=== PATIENT | male | born 1965 | race Caucasian/White ===

== ENCOUNTER 2016-09-26 14:09 | Emergency (ER) | payer OTHER ==
[~2016-09-26] VITALS: Ht 170.2 cm; Wt 93.0 kg
[~2016-09-26 14:09] MED LIST: AMARYL1 MG PO; AMARYL4 MG PO; AMOXICILLIN 50500 MG PO; ASPIR-TRIN325 MG PO; AUGMENTIN 875-1 EACH PO; BACLOFEN 10MG T10 MG PO; BACTRIM DS TAB1 EACH PO; COREG25 MG PO; EXCEDRIN CAPLE1 EACH PO; FLEXERIL PO; FLONASE 0.05%50 MCG NASAL; GLUCOPHAGE XR500 MG PO; HYDROCHLOROTHIA25 M2 PO; IBUPROFEN 600600 M1 PO; IBUPROFEN 800800 MG PO; KEFLEX500 MG PO; LIDODERM 5%1 PATC1 TRANSDERM; LIPITOR10 MG PO; LISINOPRIL; LISINOPRIL-HCT1 EAC1; LISINOPRIL-HCT1 EACH PO; LISINOPRIL10 MG PO; LISINOPRIL20 MG PO; LOPRESSOR 50 MG50 M1 PO; METFORMIN; METFORMIN 500500 MG PO; MINIPRIN81 MG PO; NORCO 5-325 TA1 EACH PO; NORFLEX100 MG PO; ONDANSETRON HCL4 M2 PO; PERCOCET 5-3251 EACH PO; PERCOCET 7.5-51 EACH PO; PHENERGAN 25 MG25 M1 PO; PROAIR HFA8.5 GM INH; TESSALON PERLE100 MG PO; TUSSIONEX PENN473 ML PO; VALIUM5 MG PO; ZANAFLEX4 MG PO; ZOFRAN ODT4 MG PO; ZPAK PO
[2016-10-18] MEDS ORDERED: MOBIC15 MG PO (00:53)
[2016-10-18] MEDS ORDERED: NORCO 5-325 TA1 EACH PO (01:14)
[2016-11-24] MEDS ORDERED: ZOFRAN ODT4 MG PO (08:16)
== END 2016-09-26 15:34 | disposition home or self-care (01) ==
LOC: ER 14:09
DX: Z77.098 Contact with and (suspected) exposure to other hazardous, chiefly nonmedicinal, chemicals (principal); E11.9 Type 2 diabetes mellitus without complications; I10 Essential (primary) hypertension; I25.2 Old myocardial infarction; Z87.891 Personal history of nicotine dependence

== ENCOUNTER 2016-10-02 20:56 | Emergency (ER) | payer OTHER ==
[~2016-10-02] VITALS: Ht 172.7 cm; Wt 93.0 kg
--- NOTE | ~2016-10-02 | EKG ---
[place] [address] [address] [facility] [facility] [address] ELECTROCARDIOGRAM REPORT Name: MARY COLÓN [id number] Admission: 10/02/16 Attend Phys: Discharge: 10/02/16 Date of : 61 Report #: [id number] THIS REPORT FOR: //name// [facility] ED Test Date: 2016-10-02 Test Time: 20:57:02 Pat Name: MARY COLÓN Department: Room: Gender: Promotions Coordinator: SILVERIO : 1965 Requested By: Eugenio Weber Order Number: [id number] MD: Moe Amador Measurements Intervals [place] Rate: 87 P: 9 NH: 119 QRS: 46 QRSD: 97 T: 84 QT: 354 QTc: 426 Interpretive Statements Sinus rhythm Borderline short NH interval Minimal ST depression, lateral leads Compared to ECG 09/03/2016 15:30:14 No significant changes Electronically Signed On 10-03-2016 8:18:55 PHOTOVOLTAIC SOLAR CELL DESIGNER by Moe Amador [email or web address] <ELECTRONICALLY SIGNED> By: Moe Amador MD, [facility] 10/03/16817 56 56 Moe Amador MD, FACC /EPI
[2016-10-02] MEDS ORDERED: NAPROSYN500 MG PO (22:48)
[2016-10-02] MEDS ORDERED: ROBAXIN500 MG PO (22:48)
[2016-10-02] MEDS ORDERED: TRAMADOL 50 MG50 MG PO (22:48)
[2016-10-18] MEDS ORDERED: MOBIC15 MG PO (00:53)
[2016-10-18] MEDS ORDERED: NORCO 5-325 TA1 EACH PO (01:14)
[2016-11-24] MEDS ORDERED: ZOFRAN ODT4 MG PO (08:16)
== END 2016-10-02 23:13 | disposition home or self-care (01) ==
LOC: ER 20:56
DX: G44.209 Tension-type headache, unspecified, not intractable (principal); M26.602 Left temporomandibular joint disorder, unspecified; E11.9 Type 2 diabetes mellitus without complications; I25.2 Old myocardial infarction; I10 Essential (primary) hypertension; E78.5 Hyperlipidemia, unspecified; Z95.5 Presence of coronary angioplasty implant and graft; Z87.891 Personal history of nicotine dependence

== ENCOUNTER 2016-12-22 13:28 | Emergency (ER) | payer OTHER ==
[~2016-12-22] VITALS: Ht 170.2 cm; Wt 93.0 kg
[~2016-12-22 13:28] MED LIST changes: +MOBIC15 MG PO; +NAPROSYN500 MG PO; +ROBAXIN500 MG PO; +TRAMADOL 50 MG50 MG PO
[2016-12-22] MEDS ORDERED: FLEXERIL PO (15:06)
[2016-12-22] MEDS ORDERED: LIDODERM 5%1 PATC1 TRANSDERM (15:06)
[2016-12-22] MEDS ORDERED: MEDROLDOSEPACK PO (15:06)
== END 2016-12-22 15:15 ==
LOC: ER 13:28
DX: S16.1XXA Strain of muscle, fascia and tendon at neck level, initial encounter (principal); M43.6 Torticollis; E11.9 Type 2 diabetes mellitus without complications; I10 Essential (primary) hypertension; Z95.5 Presence of coronary angioplasty implant and graft; E78.5 Hyperlipidemia, unspecified; I25.2 Old myocardial infarction; Z95.1 Presence of aortocoronary bypass graft; F17.210 Nicotine dependence, cigarettes, uncomplicated; F10.99 Alcohol use, unspecified with unspecified alcohol-induced disorder; X58.XXXA Exposure to other specified factors, initial encounter; Y93.89 Activity, other specified; Y92.89 Other specified places as the place of occurrence of the external cause; Y99.8 Other external cause status

== ENCOUNTER 2017-01-02 05:05 | Emergency (ER) | payer OTHER ==
[~2017-01-02] VITALS: Ht 170.2 cm; Wt 93.0 kg
[~2017-01-02 05:05] MED LIST changes: +MEDROLDOSEPACK PO
[2017-01-02] MEDS ORDERED: KEFLEX500 MG PO (05:29)
[2017-01-02] MEDS ORDERED: NORCO 5-325 TA1 EACH PO (05:29)
[2017-01-02] MEDS ORDERED: BACTRIM DS TAB1 EACH PO (05:29)
== END 2017-01-02 05:46 | disposition home or self-care (01) ==
LOC: ER 05:05
DX: L03.012 Cellulitis of left finger (principal); E11.9 Type 2 diabetes mellitus without complications; I10 Essential (primary) hypertension; I25.2 Old myocardial infarction; Z95.1 Presence of aortocoronary bypass graft; E78.5 Hyperlipidemia, unspecified; Z95.5 Presence of coronary angioplasty implant and graft; F17.210 Nicotine dependence, cigarettes, uncomplicated; F10.99 Alcohol use, unspecified with unspecified alcohol-induced disorder

== ENCOUNTER 2017-01-05 05:27 | Inpatient (IN) | payer OTHER ==
[~2017-01-05] VITALS: Ht 170.2 cm; Wt 88.9 kg
--- NOTE | ~2017-01-05 | 2DMMODE ---
[facility] [address] [place] [place] [address] 2 D/M-MODE ECHOCARDIOGRAM Name: ELDONMARYJORGE MOORE Room #: 307-P ADM IN M.R.#: [id number] Admission: 01/05/17 Attend Phys: Geremias Freitas Discharge: Date of : 61 Date of Service: 01/06/17 1227 Report #: [id number] THIS REPORT FOR: //name// APPROVED REPORT Study performed: 01/06/2017 11:44:14 EXAM: Comprehensive 2D, Doppler, and color-flow Echocardiogram Patient Location: Bedside Room #: 307 Blood Pressure: 129/93 mmHg HR: 84 bpm Rhythm: NSR Other Information Study Quality: Adequate Indications Dyspnea Hx: MT, CABG, Stents, DM, HTN, HLP 2D Dimensions RVDd: 35.92 mm LVEF(%): 49.56 (>50%) IVSd: 11.08 (7-11mm) LVOT Diam: 23.66 (18-24mm) LVDd: 41.93 mm PWd: 9.06 (7-11mm) Ascending Ao: 36.66 (22-36mm) LVDs: 31.52 (25-40mm) Aortic Root: 33.51 mm Mason's LVEF: 49.56 % Volumes Left Atrial Volume (Systole) Single Plane 4CH: 40.79 mL Single Plane 2CH: 40.37 mL LA ESV Index: 21.00 mL/m2 Aortic Valve AoV Peak Alf.: 1.16 m/s AO Peak Gr.: 5.41 mmHg LVOT Max P.68 mmHg LVOT Max V: 0.82 m/s Mitral Valve E/A Ratio: 0.7 [facility] [address] [place] [address] 2 D/M-MODE ECHOCARDIOGRAM Name: MARY COLÓN TERESA Room #: 307-P ADM IN [facility].#: [id number] Admission: 01/05/17 Attend Phys: Geremias Freitas Discharge: Date of : 61 Date of Service: 01/06/17 1227 Report #: [id number] MV Decel. Time: 205.34 ms MV E Max Alf.: 0.56 m/s MV A Alf.: 0.76 m/s MV PHT: 59.55 ms Pulmonary Valve PV Peak Alf.: 0.74 m/s PV Peak Gr.: 2.19 mmHg Pulmonary Vein P Vein S: 54.1 m/s P Vein D: 41.5 m/s Tricuspid Valve RAP Estimate: 5.00 mmHg Left Ventricle The left ventricle is normal size. There is normal LV segmental wall motion. There is normal left ventricular wall thickness. The left ventricular systolic function is normal. LVEF is 55%. Grade I - abnormal relaxation pattern. Right Ventricle The right ventricle is normal size. The right ventricular systolic function is normal. Atria The left atrium size is normal. The right atrium size is normal. Aortic Valve Aortic valve is mildly calcified. No aortic regurgitation is present. There is no aortic valvular stenosis. Mitral Valve The mitral valve is normal in structure. Trace mitral regurgitation. Tricuspid Valve The tricuspid valve is normal in structure. There is no tricuspid valve regurgitation noted. Pulmonic Valve Pulmonic valve is not well visualized. Great Vessels The aortic root is normal in size. The ascending aorta is normal in [facility] [address] [place] [address] 2 D/M-MODE ECHOCARDIOGRAM Name: ELDONMARY Room #: 307-P ADM IN M.R.#: [id number] Admission: 01/05/17 Attend Phys: Geremias Freitas Discharge: Date of : 61 Date of Service: 01/06/17 1227 Report #: [id number] size. IVC is normal in size and collapses >50% with inspiration. Pericardium There is no pericardial effusion. <Conclusion> The left ventricle is normal size. LVEF is 55%. Aortic valve is mildly calcified. No aortic regurgitation is present. There is no aortic valvular stenosis. The mitral valve is normal in structure. Trace mitral regurgitation. The tricuspid valve is normal in structure. Pulmonic valve is not well visualized. <ELECTRONICALLY SIGNED> By: Zacarias Prince MD 01/06/17 122 26 26 Zacarias Prince MD /INF
--- NOTE | ~2017-01-05 | HC ---
[facility] [place] [address] CONSULTATION Name: MARY COLÓN Room #: 307-P [facility] IN M.R.#: [id number] Admission: 01/05/17 Attend Phys: Felipe Hutson MD Discharge: Date of : 61 Report #: [id number] THIS REPORT FOR: //name// CC: JOELLE physician/PCP Felipe Hutson DATE OF SERVICE: 01/05/2017 INDICATION: Dyspnea. HISTORY OF PRESENT ILLNESS: This is a 51-year-old gentleman with a history of CABG, presenting with dyspnea. He reports developing dyspnea when he took the garbage out this morning. He denies any associated symptoms of angina, lightheadedness or congestion. He follows with Dr. Monsivais at [facility]. His last ischemic evaluation in August 2016 was unremarkable, although the target heart rate was not achieved. There is no history of tobacco use, fever, chills or cough. PAST MEDICAL HISTORY: [facility]-vessel CABG at [facility] in 2010. Recently with stents in 2014 at [facility], followed by Dr. Monsivais. History of hypertension, diabetes mellitus and hypercholesterolemia. ALLERGIES: None. CURRENT MEDICATIONS: Includes lisinopril 10 mg daily, Glucophage, glimepiride 8 mg daily, aspirin once a day, Coreg 25 mg twice a day, hydrochlorothiazide 25 mg daily, atorvastatin 10 mg daily. SOCIAL HISTORY: Denies tobacco use. FAMILY HISTORY: Negative for premature CAD. REVIEW OF SYSTEMS: A full 10-point review of systems performed. Only the pertinent positives and negatives are described in the HPI. PHYSICAL EXAMINATION: VITAL SIGNS: Blood pressure is 120/70, heart rate is 75 beats per minute. GENERAL APPEARANCE: A well-developed, well-nourished male in no acute respiratory distress. HEAD AND EYES: Normocephalic. Sclerae anicteric. ENT: Oral mucosa moist. NECK: Supple. LUNGS: Clear to auscultation. CARDIAC: Regular rate and rhythm, S1, S2 positive. ABDOMEN: Soft, nontender. [facility] [address] [place] [address] CONSULTATION Name: MARY COLÓN TERESA Room #: [facility] IN M.R.#: [id number] Admission: 01/05/17 Attend Phys: Felipe Hutson MD Discharge: Date of : 61 Report #: [id number] EXTREMITIES: No major joint deformities. No edema. ECG reveals sinus rhythm, nonspecific T-wave abnormalities. LABORATORY VALUES: White count is 5.3, hemoglobin 13.7. Sodium is 132, creatinine is 1.2, troponin is negative. ASSESSMENT AND PLAN: 1. Dyspnea, occurred with taking the garbage out, appears to be stable at this time. The BNP level is within normal limits. I would like to obtain an echo to assess his LV function. He will continue with serial troponin levels. 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 2. Coronary artery disease/coronary artery bypass graft, continue with aspirin. 3. Hypertension, continue with medications. 4. Hypercholesterolemia, continue with statin. 5. Diabetes mellitus, poorly controlled Thank you for allowing me to participate in the care of your patient. <ELECTRONICALLY SIGNED> By: Joel Rowan MD 01/06/17 0807 1436 0002 Joel Rowan MD /nt
--- NOTE | ~2017-01-05 | EKG ---
[place] [address] [place] [address] ELECTROCARDIOGRAM REPORT Name: MARY COLÓN [facility] [id number] Admission: 01/05/17 Attend Phys: Discharge: Date of : 61 Report #: [id number] THIS REPORT FOR: //name// [facility] ED Test Date: 2017-01-05 Test Time: 05:49:43 Pat Name: MARY COLÓN Department: Room: Gender: Customer Strategy Manager: EDILIA : 1965 Requested By: Ana María Deshpande Order Number: [id number] MD: Moe Amador Measurements Intervals [place] Rate: 66 P: 9 CO: 132 QRS: 16 QRSD: 97 T: 122 QT: 391 QTc: 410 Interpretive Statements Sinus rhythm Abnormal T, consider ischemia, lateral leads Compared to ECG 11/24/2016 05:23:23 T-wave abnormality now present Ventricular premature complex(es) no longer present Electronically Signed On 01-05-2017 8:36:41 CDT by Moe Amador [email or web address] <ELECTRONICALLY SIGNED> By: Moe Amador MD, [facility] 01/05/17 0836 0549 0549 Moe Amador MD, [facility] /EPI
[2017-01-05 05:33] VITALS: BP 111/68
[2017-01-05 06:12] LABS: ABSOLUTE NEUTROPHILS 2.4 thou/uL (1.4-8.2); BASOPHILS 2.3 % (0.0-2.0); EOSINOPHILS 4.1 % (0.0-3.0); HEMATOCRIT 38.8 % (42.0-52.0); HEMOGLOBIN 13.7 gm/dL (14.0-18.0); LYMPHOCYTES 38.6 % (24.0-44.0); MCH 28.9 pg (26.0-34.0); MCHC 35.4 g/dL (28.0-37.0); MCV 81.6 fL (80.0-100.0); MONOCYTES 9.1 % (1.0-8.0); PLATELET COUNT 273 thou/uL (150-400); POLYS 45.9 % (36.0-66.0); RBC 4.75 mil/uL (4.50-6.00); RDW 13.7 % (10.5-14.5); WBC 5.3 thou/uL (4.0-11.0)
[2017-01-05 06:14] LABS: MANUAL DIFF NO
[2017-01-05 06:37] LABS: ANION GAP 11 mmol/L (7-16); BUN 21 mg/dL (7-18); CALCIUM 8.4 mg/dL (8.5-10.1); CHLORIDE 98 mmol/L (98-107); CO2 23 mmol/L (21-32); CREATININE 1.2 mg/dL (0.7-1.3); NT-PRO BRAIN NAT PEPTIDE 19 pg/mL (<300); POTASSIUM 4.3 mmol/L (3.5-5.1); SODIUM 132 mmol/L (136-145); TROPONIN-I < 0.04 ng/mL (<0.04-0.07)
[2017-01-05 06:41] LABS: GLUCOSE 524 mg/dL (74-106)
[2017-01-05 11:35] VITALS: BP 122/79
[2017-01-05 11:41] VITALS: BP 122/79
[2017-01-05 11:42] VITALS: BP 109/75; BP 112/72
[2017-01-05 17:00] VITALS: BP 125/77
[2017-01-05 20:00] VITALS: BP 139/80
[2017-01-06 01:07] LABS: GLYCOHEMOGLOBIN (HGB A1C) 11.4 % (4.8-5.6)
[2017-01-06 04:00] VITALS: BP 127/85
[2017-01-06 05:05] LABS: ANION GAP 12 mmol/L (7-16); BUN 17 mg/dL (7-18); CALCIUM 8.8 mg/dL (8.5-10.1); CHLORIDE 103 mmol/L (98-107); CO2 24 mmol/L (21-32); CREATININE 0.9 mg/dL (0.7-1.3); GLUCOSE 172 mg/dL (74-106); MAGNESIUM 1.9 mg/dL (1.8-2.4); POTASSIUM 3.7 mmol/L (3.5-5.1); SODIUM 139 mmol/L (136-145)
[2017-01-06 07:55] LABS: TROPONIN-I < 0.04 ng/mL (<0.04-0.07)
[2017-01-06 08:22] VITALS: BP 129/93
[2017-01-06] MEDS ORDERED: GLIPIZIDE 5 MG T5 MG PO (11:45)
[2017-01-06 12:32] VITALS: BP 134/89
[2017-01-06 14:24] VITALS: BP 134/89
[2017-01-06 15:52] VITALS: BP 137/87
[2017-01-06 16:56] VITALS: BP 134/89
== END 2017-01-06 17:39 | disposition home or self-care (01) | DRG 313 ==
LOC: ER 05:27 → 3N 08:33 → EROBS 08:33 → 3N 09:38
PROVIDERS: Emergency Medicine; Nurse Practitioner
DX: R07.9 Chest pain, unspecified (principal); E87.1 Hypo-osmolality and hyponatremia; R06.02 Shortness of breath; E78.5 Hyperlipidemia, unspecified; E78.00 Pure hypercholesterolemia, unspecified; I11.9 Hypertensive heart disease without heart failure; R42 Dizziness and giddiness; E11.65 Type 2 diabetes mellitus with hyperglycemia; I25.10 Atherosclerotic heart disease of native coronary artery without angina pectoris; G89.29 Other chronic pain; M79.642 Pain in left hand; Z79.899 Other long term (current) drug therapy; I25.2 Old myocardial infarction; Z95.1 Presence of aortocoronary bypass graft; Z95.5 Presence of coronary angioplasty implant and graft; Z87.891 Personal history of nicotine dependence; Z79.82 Long term (current) use of aspirin
CPT/HCPCS: 10096

== ENCOUNTER 2017-01-14 20:37 | Emergency (ER) | payer OTHER ==
[~2017-01-14] VITALS: Ht 170.2 cm; Wt 93.0 kg
[~2017-01-14 20:37] MED LIST changes: +GLIPIZIDE 5 MG T5 MG PO
[2017-01-14 20:56] LABS: ABSOLUTE NEUTROPHILS 3.6 thou/uL (1.4-8.2); BASOPHILS 1.3 % (0.0-2.0); EOSINOPHILS 3.3 % (0.0-3.0); HEMATOCRIT 38.5 % (42.0-52.0); HEMOGLOBIN 13.8 gm/dL (14.0-18.0); LYMPHOCYTES 39.1 % (24.0-44.0); MCH 29.3 pg (26.0-34.0); MCHC 35.8 g/dL (28.0-37.0); MCV 81.8 fL (80.0-100.0); MONOCYTES 8.3 % (1.0-8.0); PLATELET COUNT 287 thou/uL (150-400); RDW 13.7 % (10.5-14.5); WBC 7.4 thou/uL (4.0-11.0)
[2017-01-14 21:00] LABS: MANUAL DIFF NO
[2017-01-14] MEDS ORDERED: PHENERGAN 25 MG25 M1 PO (21:00)
[2017-01-14 21:10] LABS: ANION GAP 14 mmol/L (7-16); BUN 20 mg/dL (7-18); CALCIUM 8.5 mg/dL (8.5-10.1); CHLORIDE 100 mmol/L (98-107); CO2 20 mmol/L (21-32); CREATININE 1.3 mg/dL (0.7-1.3); GLUCOSE 416 mg/dL (74-106); POTASSIUM 4.3 mmol/L (3.5-5.1); SODIUM 134 mmol/L (136-145)
== END 2017-01-14 21:46 | disposition home or self-care (01) ==
LOC: ER 20:37
PROVIDERS: Emergency Medicine
DX: G44.009 Cluster headache syndrome, unspecified, not intractable (principal); E11.9 Type 2 diabetes mellitus without complications; I25.2 Old myocardial infarction; I10 Essential (primary) hypertension; Z95.1 Presence of aortocoronary bypass graft; Z95.5 Presence of coronary angioplasty implant and graft; Z87.891 Personal history of nicotine dependence

== ENCOUNTER 2017-03-07 05:18 | Emergency (ER) | payer OTHER ==
[~2017-03-07] VITALS: Ht 170.2 cm; Wt 93.0 kg
[~2017-03-07 05:18] MED LIST changes: +CARAFATE 1 GM TA1 G1 PO; +PROTONIX 20 MG20 M1 PO
[2017-03-07] MEDS ORDERED: FLEXERIL PO (06:19)
[2017-03-07] MEDS ORDERED: NORCO 5-325 TA1 EACH PO (06:19)
[2017-03-07] MEDS ORDERED: MOBIC15 MG PO (06:19)
== END 2017-03-07 06:20 | disposition home or self-care (01) ==
LOC: ER 05:18
DX: M54.5 Low back pain (principal); M53.3 Sacrococcygeal disorders, not elsewhere classified; E11.9 Type 2 diabetes mellitus without complications; I25.2 Old myocardial infarction; I10 Essential (primary) hypertension; E78.5 Hyperlipidemia, unspecified; Z95.5 Presence of coronary angioplasty implant and graft; Z87.891 Personal history of nicotine dependence

== ENCOUNTER 2017-03-28 05:19 | Emergency (ER) | payer OTHER ==
[~2017-03-28] VITALS: Ht 172.7 cm; Wt 93.0 kg
[2017-03-28] MEDS ORDERED: ZOFRAN ODT4 MG PO (05:48)
== END 2017-03-28 06:58 | disposition home or self-care (01) ==
LOC: ER 05:19
DX: R51 Headache (principal); E11.9 Type 2 diabetes mellitus without complications; I25.2 Old myocardial infarction; I10 Essential (primary) hypertension; E78.00 Pure hypercholesterolemia, unspecified; F10.99 Alcohol use, unspecified with unspecified alcohol-induced disorder; Z95.5 Presence of coronary angioplasty implant and graft; Z87.891 Personal history of nicotine dependence

== ENCOUNTER 2017-04-11 23:26 | Emergency (ER) | payer OTHER ==
[~2017-04-11] VITALS: Ht 175.3 cm; Wt 93.0 kg
[2017-04-12] MEDS ORDERED: VALIUM2 MG PO (00:12)
[2017-04-12] MEDS ORDERED: MOBIC15 MG PO (00:12)
== END 2017-04-12 01:08 | disposition home or self-care (01) ==
LOC: ER 23:26
DX: S16.1XXA Strain of muscle, fascia and tendon at neck level, initial encounter (principal); E11.9 Type 2 diabetes mellitus without complications; I25.2 Old myocardial infarction; I10 Essential (primary) hypertension; E78.5 Hyperlipidemia, unspecified; Z95.5 Presence of coronary angioplasty implant and graft; Z87.891 Personal history of nicotine dependence; W07.XXXA Fall from chair, initial encounter; Y93.89 Activity, other specified; Y92.89 Other specified places as the place of occurrence of the external cause; Y99.8 Other external cause status

== ENCOUNTER 2017-04-27 09:18 | Emergency (ER) | payer OTHER ==
[~2017-04-27] VITALS: Ht 170.2 cm; Wt 93.0 kg
[~2017-04-27 09:18] MED LIST changes: +VALIUM2 MG PO
[2017-04-27] MEDS ORDERED: MOBIC15 MG PO (09:47)
[2017-04-27] MEDS ORDERED: LIDODERM 5%1 PATC1 TRANSDERM (09:48)
== END 2017-04-27 09:48 | disposition home or self-care (01) ==
LOC: ER 09:18
DX: S76.312A Strain of muscle, fascia and tendon of the posterior muscle group at thigh level, left thigh, initial encounter (principal); E11.9 Type 2 diabetes mellitus without complications; I10 Essential (primary) hypertension; I25.2 Old myocardial infarction; E78.00 Pure hypercholesterolemia, unspecified; F10.99 Alcohol use, unspecified with unspecified alcohol-induced disorder; Z95.1 Presence of aortocoronary bypass graft; Z87.891 Personal history of nicotine dependence; W18.49XA Other slipping, tripping and stumbling without falling, initial encounter; Y93.89 Activity, other specified; Y92.89 Other specified places as the place of occurrence of the external cause; Y99.8 Other external cause status

== ENCOUNTER 2017-06-29 19:03 | Inpatient (IN) | payer OTHER ==
[~2017-06-29] VITALS: Ht 170.2 cm; Wt 93.0 kg
--- NOTE | ~2017-06-29 | EKG ---
[address] [address] ELECTROCARDIOGRAM REPORT Name: MARY COLÓN Room #: 423-1 ADM IN M.R.#: [id number] Admission: 06/29/17 Attend Phys: Fermín Canales DO Discharge: Date of : 61 Report #: [id number] THIS REPORT FOR: //name// [facility] ED Test Date: 2017-06-29 Test Time: 19::17 Pat Name: MARY COLÓN Department: Room: [facility] Gender: M Junior High Math Teacher: MZOOSteph : 1965 Requested By: Ankush Rodríguez Order Number: [id number] MD: Jose Aquino Measurements Intervals [place] Rate: 75 P: 34 [place]: 129 QRS: 50 QRSD: 95 T: 82 QT: 374 QTc: 418 Interpretive Statements Sinus rhythm Minimal ST depression, lateral leads Minimal ST elevation, inferior leads Compared to ECG 03/29/2017 22:08:24 Early repolarization no longer present ST (T wave) deviation still present Electronically Signed On 06-30-2017 8:23:10 CDT by Jose Aquino [email or web address] <ELECTRONICALLY SIGNED> By: Jose Aquino MD 06/30/17 0823 09 09 Jose Aquino MD /EPI
[2017-06-29 19:09] VITALS: BP 134/68
[2017-06-29 19:37] LABS: ABSOLUTE NEUTROPHILS 3.8 thou/uL (1.4-8.2); BASOPHILS 2.7 % (0.0-2.0); EOSINOPHILS 3.6 % (0.0-3.0); HEMOGLOBIN 13.6 gm/dL (14.0-18.0); LYMPHOCYTES 35.5 % (24.0-44.0); MCHC 35.7 g/dL (28.0-37.0); MCV 81.1 fL (80.0-100.0); MONOCYTES 10.3 % (1.0-8.0); PLATELET COUNT 284 thou/uL (150-400); POLYS 47.9 % (36.0-66.0); RBC 4.69 mil/uL (4.50-6.00); RDW 13.8 % (10.5-14.5); WBC 7.9 thou/uL (4.0-11.0)
[2017-06-29 19:42] LABS: MANUAL DIFF NO
[2017-06-29 19:48] LABS: ANION GAP 13 mmol/L (7-16); BUN 22 mg/dL (7-18); CALCIUM 9.1 mg/dL (8.5-10.1); CHLORIDE 95 mmol/L (98-107); CO2 21 mmol/L (21-32); CREATININE 1.4 mg/dL (0.7-1.3); POTASSIUM 3.4 mmol/L (3.5-5.1); SODIUM 129 mmol/L (136-145)
[2017-06-29 19:53] LABS: GLUCOSE 548 mg/dL (74-106)
[2017-06-29 19:54] LABS: TROPONIN-I < 0.04 ng/mL (<0.04-0.07)
[2017-06-29 20:19] LABS: ABG SAMPLE TYPE ARTERIAL; BE(vivo) 1.2 mmol/L (-2 to +3); HCO3 21.4 mmol/L (22.0-26.0); LACTATE 3.38 mmol/L (0.5-2.0); O2(CT) 19.1 mL/dL (15.0-23.0); O2Hb 97.8 % (92.0-98.0); PO2 113.4 mmHg (80.0-100.0); pH 7.576 (7.360-7.450); sO2 98.7 % (92.0-98.0); tCO2 22.2 mmol/L (24.0-30.0)
[2017-06-29 20:20] LABS: PCO2 23.6 mmHg (35.0-45.0); STICK SITE L.RADIAL
[2017-06-29 22:15] VITALS: BP 126/70
[2017-06-29 23:12] VITALS: BP 130/74
[2017-06-30 03:16] VITALS: BP 138/93
[2017-06-30 04:02] LABS: CALCIUM 8.5 mg/dL (8.5-10.1); CREATININE 0.9 mg/dL (0.7-1.3); MAGNESIUM 1.8 mg/dL (1.8-2.4); POTASSIUM 3.7 mmol/L (3.5-5.1)
[2017-06-30 08:00] VITALS: BP 125/84
[2017-06-30 08:26] LABS: URINE BILIRUBIN NEGATIVE (Negative); URINE BLOOD NEGATIVE (Negative); URINE COLOR YELLOW; URINE GLUCOSE-RANDOM* 3+ (Negative); URINE KETONES NEGATIVE (Negative); URINE LEUKOCYTES-REFLEX NEGATIVE (Negative); URINE PROTEIN (DIPSTICK) NEGATIVE (Negative); URINE SPECIFIC GRAVITY <= 1.005 (1.003-1.035); URINE UROBILINOGEN 0.2 E.U./dl (0.2-1.0)
[2017-06-30] MEDS ORDERED: AZITHROMYCIN 2250 MG PO (11:10)
[2017-06-30 11:31] VITALS: BP 125/84
[2017-06-30 13:12] LABS: GLYCOHEMOGLOBIN (HGB A1C) 13.3 % (4.8-5.6)
== END 2017-06-30 13:47 | disposition home or self-care (01) | DRG 205 ==
LOC: ER 19:03 → 4E 21:33 → EROBS 21:33 → 4E 23:14
PROVIDERS: Emergency Medicine; Nurse Practitioner Acute Care
DX: M94.0 Chondrocostal junction syndrome [Tietze] (principal); N17.0 Acute kidney failure with tubular necrosis; E87.1 Hypo-osmolality and hyponatremia; E87.3 Alkalosis; R07.89 Other chest pain; Z82.49 Family history of ischemic heart disease and other diseases of the circulatory system; I25.10 Atherosclerotic heart disease of native coronary artery without angina pectoris; E87.6 Hypokalemia; I10 Essential (primary) hypertension; E78.5 Hyperlipidemia, unspecified; E11.65 Type 2 diabetes mellitus with hyperglycemia; I25.2 Old myocardial infarction; Z95.1 Presence of aortocoronary bypass graft; Z87.891 Personal history of nicotine dependence; Z79.82 Long term (current) use of aspirin; Z79.899 Other long term (current) drug therapy; Z79.84 Long term (current) use of oral hypoglycemic drugs; Z95.5 Presence of coronary angioplasty implant and graft
CPT/HCPCS: 10183

== ENCOUNTER 2017-09-22 12:59 | Emergency (ER) | payer OTHER ==
[~2017-09-22] VITALS: Ht 170.2 cm; Wt 90.7 kg
[~2017-09-22 12:59] MED LIST changes: +AZITHROMYCIN 2250 MG PO
[2017-09-22] MEDS ORDERED: BUTALB-APAP-CA1 EACH PO (14:42)
[2017-09-22 14:53] VITALS: BP 112/80
[2018-01-12] MEDS ORDERED: NORFLEX100 MG PO (19:32)
[2018-01-12] MEDS ORDERED: IBUPROFEN 800800 M1 PO (19:32)
== END 2017-09-22 14:56 | disposition home or self-care (01) ==
LOC: ER 12:59
DX: G43.909 Migraine, unspecified, not intractable, without status migrainosus (principal); R05 Cough; E11.9 Type 2 diabetes mellitus without complications; I10 Essential (primary) hypertension; E78.5 Hyperlipidemia, unspecified; Z87.891 Personal history of nicotine dependence

== ENCOUNTER 2017-10-09 09:57 | Emergency (ER) | payer OTHER ==
[~2017-10-09] VITALS: Ht 172.7 cm; Wt 93.0 kg
--- NOTE | ~2017-10-09 | EKG ---
[address] [address] ELECTROCARDIOGRAM REPORT Name: MARY COLÓN Room #: DEP [facility]rie#: [id number] Admission: 10/09/17 Attend Phys: Discharge: 10/09/17 Date of : 61 Report #: [id number] THIS REPORT FOR: //name// [facility] ED Test Date: 2017-10-09 Test Time: 10:11:03 Pat Name: MARY COLÓN Department: Room: Gender: M Train Control Electronic Technician: TSTORCK : 1965 Requested By: Ankush Rodríguez Order Number: [id number] MD: Jose Aquino Measurements Intervals [place] Rate: 70 P: 16 ME: 130 QRS: 33 QRSD: 92 T: 106 QT: 388 QTc: 419 Interpretive Statements Sinus rhythm Repol abnrm suggests ischemia, anterolateral Borderline ST elevation, inferior leads Baseline wander in lead(s) V2 Compared to ECG 06/29/2017 19:10:17 Early repolarization now present Possible ischemia now present ST (T wave) deviation still present Electronically Signed On 10-10-2017 8:11:04 ION IMPLANT MACHINE OPERATOR by Jose Aquino [email or web address] <ELECTRONICALLY SIGNED> By: Jose Aquino MD 10/10/17 0811 1011 1011 Jose Aquino MD /EPI
[~2017-10-09 09:57] MED LIST changes: +BUTALB-APAP-CA1 EACH PO
[2017-10-09 11:10] LABS: ABSOLUTE NEUTROPHILS 3.8 thou/uL (1.4-8.2); BASOPHILS 1.3 % (0.0-2.0); EOSINOPHILS 4.2 % (0.0-3.0); HEMATOCRIT 39.9 % (42.0-52.0); HEMOGLOBIN 14.2 gm/dL (14.0-18.0); LYMPHOCYTES 30.7 % (24.0-44.0); MCH 29.3 pg (26.0-34.0); MCHC 35.5 g/dL (28.0-37.0); MCV 82.4 fL (80.0-100.0); MONOCYTES 8.5 % (1.0-8.0); PLATELET COUNT 287 thou/uL (150-400); POLYS 55.3 % (36.0-66.0); RBC 4.84 mil/uL (4.50-6.00); RDW 13.7 % (10.5-14.5); WBC 6.9 thou/uL (4.0-11.0)
[2017-10-09 11:19] LABS: ANION GAP 10 mmol/L (7-16); BUN 19 mg/dL (7-18); CALCIUM 9.4 mg/dL (8.5-10.1); CHLORIDE 97 mmol/L (98-107); CO2 27 mmol/L (21-32); CREATININE 1.1 mg/dL (0.7-1.3); GLUCOSE 375 mg/dL (74-106); POTASSIUM 4.1 mmol/L (3.5-5.1); SODIUM 134 mmol/L (136-145)
[2017-10-09 11:28] LABS: TROPONIN-I < 0.04 ng/mL (<0.06)
[2017-10-09] MEDS ORDERED: PROTONIX40 M1 PO (12:28)
[2017-10-09 13:10] VITALS: BP 125/73
[2018-01-12] MEDS ORDERED: NORFLEX100 MG PO (19:32)
[2018-01-12] MEDS ORDERED: IBUPROFEN 800800 M1 PO (19:32)
== END 2017-10-09 13:11 | disposition home or self-care (01) ==
LOC: ER 09:57
PROVIDERS: Emergency Medicine
DX: R07.89 Other chest pain (principal); I10 Essential (primary) hypertension; E11.9 Type 2 diabetes mellitus without complications; E78.5 Hyperlipidemia, unspecified; Z87.891 Personal history of nicotine dependence

== ENCOUNTER 2017-11-10 22:54 | Emergency (ER) | payer OTHER ==
[~2017-11-10] VITALS: Ht 170.2 cm; Wt 93.0 kg
[~2017-11-10 22:54] MED LIST changes: +PROTONIX40 M1 PO
[2017-11-11] MEDS ORDERED: PROMETHAZINE/C118 ML PO (01:23)
[2017-11-11] MEDS ORDERED: OSELB75 PO (01:23)
[2017-11-11] MEDS ORDERED: ZOFRAN ODT4 MG PO (01:23)
[2017-11-11 02:00] VITALS: BP 141/73
[2018-01-12] MEDS ORDERED: NORFLEX100 MG PO (19:32)
[2018-01-12] MEDS ORDERED: IBUPROFEN 800800 M1 PO (19:32)
== END 2017-11-11 02:02 | disposition home or self-care (01) ==
LOC: ER 22:54
DX: J11.1 Influenza due to unidentified influenza virus with other respiratory manifestations (principal); E11.9 Type 2 diabetes mellitus without complications; I25.2 Old myocardial infarction; I10 Essential (primary) hypertension; E78.5 Hyperlipidemia, unspecified; Z95.1 Presence of aortocoronary bypass graft; Z87.891 Personal history of nicotine dependence

== ENCOUNTER 2017-11-15 21:30 | Emergency (ER) | payer OTHER ==
[~2017-11-15] VITALS: Ht 170.2 cm; Wt 93.0 kg
[~2017-11-15 21:30] MED LIST changes: +OSELB75 PO; +PROMETHAZINE/C118 ML PO
[2017-11-15 22:25] LABS: ABSOLUTE NEUTROPHILS 2.6 thou/uL (1.4-8.2); BASOPHILS 1.3 % (0.0-2.0); HEMATOCRIT 40.8 % (42.0-52.0); HEMOGLOBIN 14.5 gm/dL (14.0-18.0); LYMPHOCYTES 45.1 % (24.0-44.0); MCH 28.7 pg (26.0-34.0); MCHC 35.5 g/dL (28.0-37.0); MCV 80.9 fL (80.0-100.0); MONOCYTES 10.1 % (1.0-8.0); PLATELET COUNT 235 thou/uL (150-400); POLYS 39.5 % (36.0-66.0); RBC 5.04 mil/uL (4.50-6.00); RDW 13.6 % (10.5-14.5); WBC 6.6 thou/uL (4.0-11.0)
[2017-11-15 22:38] LABS: CALCIUM 9.1 mg/dL (8.5-10.1); CREATININE 1.2 mg/dL (0.7-1.3); POTASSIUM 4.1 mmol/L (3.5-5.1)
[2017-11-16 00:16] VITALS: BP 149/88
[2018-01-12] MEDS ORDERED: NORFLEX100 MG PO (19:32)
[2018-01-12] MEDS ORDERED: IBUPROFEN 800800 M1 PO (19:32)
== END 2017-11-16 00:16 | disposition home or self-care (01) ==
LOC: ER 21:30
PROVIDERS: Physician Assistant
DX: J11.1 Influenza due to unidentified influenza virus with other respiratory manifestations (principal); B34.9 Viral infection, unspecified; E11.65 Type 2 diabetes mellitus with hyperglycemia; I10 Essential (primary) hypertension; E78.5 Hyperlipidemia, unspecified; I25.2 Old myocardial infarction; Z95.1 Presence of aortocoronary bypass graft; Z87.891 Personal history of nicotine dependence

== ENCOUNTER 2017-11-29 23:18 | Emergency (ER) | payer OTHER ==
[~2017-11-29] VITALS: Ht 170.2 cm; Wt 93.0 kg
[2017-11-30] MEDS ORDERED: NAPROSYN500 MG PO (01:06)
[2017-11-30] MEDS ORDERED: BUTALB-APAP-CA1 EACH PO (01:06)
[2017-11-30 01:39] VITALS: BP 138/85
[2018-01-12] MEDS ORDERED: NORFLEX100 MG PO (19:32)
[2018-01-12] MEDS ORDERED: IBUPROFEN 800800 M1 PO (19:32)
== END 2017-11-30 01:41 | disposition home or self-care (01) ==
LOC: ER 23:18
DX: R51 Headache (principal); E11.9 Type 2 diabetes mellitus without complications; I10 Essential (primary) hypertension; Z95.5 Presence of coronary angioplasty implant and graft; Z87.891 Personal history of nicotine dependence

== ENCOUNTER 2017-12-07 14:51 | Emergency (ER) | payer OTHER ==
[~2017-12-07] VITALS: Ht 170.2 cm; Wt 93.0 kg
--- NOTE | ~2017-12-07 | EKG ---
[place] [address] [place] [address] ELECTROCARDIOGRAM REPORT Name: MARY COLÓN [facility] [id number] Admission: 12/07/17 Attend Phys: Discharge: Date of : 61 Report #: [id number] THIS REPORT FOR: //name// [facility] ED Test Date: 2017-12-07 Test Time: 15:15:59 Pat Name: MARY COLÓN Department: Room: Gender: M Play Reader: JUSTYNA : 1965 Requested By: Virgilio Woodall Order Number: [id number] MD: Moe Amador Measurements Intervals [place] Rate: 78 P: 2 RI: 127 QRS: 47 QRSD: 94 T: 91 QT: 368 QTc: 420 Interpretive Statements Sinus rhythm Borderline ST elevation, inferior leads Compared to ECG 10/09/2017 10:11:03 No significant change was found Electronically Signed On 12-07-2017 17:39:51 CDT by Moe Amador [email or web address] <ELECTRONICALLY SIGNED> By: Moe Amador MD, [facility] 12/07/17 1739 1515 1515 Moe Amador MD, FACC /EPI
[2017-12-07 15:18] LABS: URINE BILIRUBIN NEGATIVE (Negative); URINE BLOOD NEGATIVE (Negative); URINE CLARITY CLEAR; URINE COLOR YELLOW; URINE GLUCOSE-RANDOM* 3+ (Negative); URINE KETONES NEGATIVE (Negative); URINE LEUKOCYTES NEGATIVE (Negative); URINE NITRITE NEGATIVE (Negative); URINE PROTEIN (DIPSTICK) NEGATIVE (Negative); URINE SPECIFIC GRAVITY <= 1.005 (1.005-1.035); URINE UROBILINOGEN 0.2 E.U./dl (0.2-1.0)
[2017-12-07 15:31] LABS: ABSOLUTE NEUTROPHILS 3.7 thou/uL (1.4-8.2); BASOPHILS 1.3 % (0.0-2.0); EOSINOPHILS 3.5 % (0.0-3.0); HEMATOCRIT 39.8 % (42.0-52.0); HEMOGLOBIN 14.1 gm/dL (14.0-18.0); MCHC 35.5 g/dL (28.0-37.0); MCV 81.5 fL (80.0-100.0); MONOCYTES 10.4 % (1.0-8.0); PLATELET COUNT 295 thou/uL (150-400); POLYS 54.8 % (36.0-66.0); RBC 4.88 mil/uL (4.50-6.00); RDW 13.3 % (10.5-14.5); WBC 6.7 thou/uL (4.0-11.0)
[2017-12-07 15:43] LABS: ANION GAP 12 mmol/L (7-16); BUN 19 mg/dL (7-18); CALCIUM 9.1 mg/dL (8.5-10.1); CHLORIDE 93 mmol/L (98-107); CO2 23 mmol/L (21-32); CREATININE 1.2 mg/dL (0.7-1.3); POTASSIUM 4.4 mmol/L (3.5-5.1); SODIUM 128 mmol/L (136-145)
[2017-12-07 15:48] LABS: GLUCOSE 691 mg/dL (74-106)
[2017-12-07 15:49] LABS: ALBUMIN 3.3 g/dL (3.4-5.0); SGOT 18 U/L (15-37); SGPT 27 U/L (30-65); TOTAL BILIRUBIN 0.4 mg/dL (<0.1-1.0); TROPONIN-I < 0.04 ng/mL (<0.06)
[2017-12-07 16:32] LABS: HCO3 22.3 mmol/L (22.0-26.0); PCO2 VENOUS 40.8 mmHg (41.0-51.0); PO2 VENOUS 49.5 mmHg (35.0-45.0)
== END 2017-12-07 20:25 | disposition home or self-care (01) ==
LOC: ER 14:51
PROVIDERS: Physician Assistant
DX: E11.65 Type 2 diabetes mellitus with hyperglycemia (principal); E86.0 Dehydration; I10 Essential (primary) hypertension; E78.5 Hyperlipidemia, unspecified; Z91.11 Patient's noncompliance with dietary regimen; Z87.891 Personal history of nicotine dependence

== ENCOUNTER 2018-01-03 07:49 | Emergency (ER) | payer OTHER ==
[~2018-01-03] VITALS: Ht 172.7 cm; Wt 93.0 kg
[2018-01-03] MEDS ORDERED: MOBIC15 MG PO (09:27)
== END 2018-01-03 10:13 | disposition home or self-care (01) ==
LOC: ER 07:49
DX: M79.604 Pain in right leg (principal); E11.9 Type 2 diabetes mellitus without complications; I10 Essential (primary) hypertension; E78.5 Hyperlipidemia, unspecified; I25.2 Old myocardial infarction; Z95.1 Presence of aortocoronary bypass graft; Z87.891 Personal history of nicotine dependence

== ENCOUNTER 2018-01-05 20:22 | Emergency (ER) | payer OTHER ==
[~2018-01-05] VITALS: Ht 170.2 cm; Wt 93.0 kg
--- NOTE | ~2018-01-05 | EKG ---
[place] [address] [facility] [place] [address] ELECTROCARDIOGRAM REPORT Name: MARY COLÓN [facility] [id number] Admission: 01/05/18 Attend Phys: Discharge: 01/05/18 Date of : 61 Report #: [id number] THIS REPORT FOR: //name// [facility] ED Test Date: 2018-01-05 Test Time: 20:41:42 Pat Name: MARY COLÓN Department: Room: Gender: M Chainstitch Felled Seam Operator: JUSTYNA : 1965 Requested By: Denzel Zavaleta Order Number: [id number] MD: Moe Amador Measurements Intervals [place] Rate: 80 P: 39 MD: 125 QRS: 46 QRSD: 98 T: 106 QT: 334 QTc: 386 Interpretive Statements Sinus rhythm Borderline repolarization abnormality Compared to ECG 12/07/2017 15:15:59 ST (T wave) deviation still present Electronically Signed On 01-07-2018 16:31:04 CDT by Moe Amador [email or web address] <ELECTRONICALLY SIGNED> By: Moe Amador MD, [facility] 01/07/18 1631 40 40 Moe Amador MD, FACC /EPI
[2018-01-05 21:08] LABS: ABSOLUTE NEUTROPHILS 3.7 thou/uL (1.4-8.2); BASOPHILS 1.4 % (0.0-2.0); EOSINOPHILS 3.5 % (0.0-3.0); HEMATOCRIT 39.3 % (42.0-52.0); HEMOGLOBIN 13.9 gm/dL (14.0-18.0); LYMPHOCYTES 39.3 % (24.0-44.0); MCHC 35.4 g/dL (28.0-37.0); MONOCYTES 8.4 % (1.0-8.0); PLATELET COUNT 286 thou/uL (150-400); POLYS 47.4 % (36.0-66.0); RBC 4.79 mil/uL (4.50-6.00); RDW 13.5 % (10.5-14.5); WBC 7.9 thou/uL (4.0-11.0)
[2018-01-05 21:10] LABS: URINE BILIRUBIN NEGATIVE (Negative); URINE BLOOD NEGATIVE (Negative); URINE CLARITY CLEAR; URINE COLOR YELLOW; URINE GLUCOSE-RANDOM* 3+ (Negative); URINE KETONES TRACE (Negative); URINE LEUKOCYTES-REFLEX NEGATIVE (Negative); URINE NITRITE-REFLEX NEGATIVE (Negative); URINE PROTEIN (DIPSTICK) NEGATIVE (Negative); URINE SPECIFIC GRAVITY <= 1.005 (1.005-1.035); URINE UROBILINOGEN 0.2 E.U./dl (0.2-1.0)
[2018-01-05 21:13] LABS: BE(vivo) 0 mmol/L (-2 to +3); HCO3 22.3 mmol/L (22.0-26.0); PCO2 VENOUS 30.4 mmHg (41.0-51.0); PO2 VENOUS 94.9 mmHg (35.0-45.0)
[2018-01-05 21:17] LABS: CALCIUM 9.4 mg/dL (8.5-10.1); CREATININE 1.1 mg/dL (0.7-1.3); POTASSIUM 3.5 mmol/L (3.5-5.1)
== END 2018-01-05 23:57 | disposition home or self-care (01) ==
LOC: ER 20:22
PROVIDERS: Physician Assistant
DX: E11.65 Type 2 diabetes mellitus with hyperglycemia (principal); I10 Essential (primary) hypertension; E78.5 Hyperlipidemia, unspecified; Z87.891 Personal history of nicotine dependence

== ENCOUNTER 2018-01-16 16:57 | Emergency (ER) | payer OTHER ==
[~2018-01-16] VITALS: Ht 170.2 cm; Wt 93.0 kg
[~2018-01-16 16:57] MED LIST changes: +IBUPROFEN 800800 M1 PO
== END 2018-01-16 18:53 | disposition home or self-care (01) ==
LOC: ER 16:57
DX: S39.012A Strain of muscle, fascia and tendon of lower back, initial encounter (principal); V89.2XXA Person injured in unspecified motor-vehicle accident, traffic, initial encounter; Y93.89 Activity, other specified; Y92.89 Other specified places as the place of occurrence of the external cause; Y99.8 Other external cause status; E11.9 Type 2 diabetes mellitus without complications; I10 Essential (primary) hypertension; E78.5 Hyperlipidemia, unspecified; Z95.1 Presence of aortocoronary bypass graft; Z87.891 Personal history of nicotine dependence

== ENCOUNTER 2018-02-22 11:49 | Emergency (ER) | payer OTHER ==
[~2018-02-22] VITALS: Ht 172.7 cm; Wt 83.9 kg
[2018-02-22] MEDS ORDERED: JANUVIA25 MG PO (12:08)
[2018-02-22] MEDS ORDERED: NORFLEX100 MG PO (13:06)
[2018-02-22] MEDS ORDERED: NAPROSYN500 MG PO (13:06)
== END 2018-02-22 13:24 | disposition home or self-care (01) ==
LOC: ER 11:49
DX: S76.011A Strain of muscle, fascia and tendon of right hip, initial encounter (principal); E11.9 Type 2 diabetes mellitus without complications; I10 Essential (primary) hypertension; E78.5 Hyperlipidemia, unspecified; Z87.891 Personal history of nicotine dependence; W10.8XXA Fall (on) (from) other stairs and steps, initial encounter; Y93.89 Activity, other specified; Y92.89 Other specified places as the place of occurrence of the external cause; Y99.8 Other external cause status

== ENCOUNTER 2018-03-08 05:23 | Inpatient (IN) | payer OTHER ==
[~2018-03-08] VITALS: Ht 170.2 cm; Wt 84.9 kg
--- NOTE | ~2018-03-08 | EKG ---
[place] [address] [facility] [place] [address] ELECTROCARDIOGRAM REPORT Name: MARY COLÓN Room #: 170-5 ADM IN M.R.#: [id number] Admission: 03/08/18 Attend Phys: Fred Garcia MD, Discharge: Date of : 61 Report #: [id number] THIS REPORT FOR: //name// [facility] ED Test Date: 2018-03-08 Test Time: 05:26:17 Pat Name: MARY COLÓN Department: Room: Gender: M Director Medical Economics: : 1965 Requested By: Ankush Rodríguez Order Number: [id number] MD: Moe Amador Measurements Intervals [place] Rate: 80 P: 12 IL: 120 QRS: 38 QRSD: 95 T: 82 QT: 367 QTc: 424 Interpretive Statements Sinus rhythm No significant abnormality Compared to ECG 01/05/2018 20:41:42 No significant changes Electronically Signed On 03-08-2018 8:10:33 CDT by Moe Amador [email or web address] <ELECTRONICALLY SIGNED> By: Moe Amador MD, [facility] 03/08/18 0810 0526 5 Moe Amador MD, FACC /EPI
--- NOTE | ~2018-03-08 | D ---
[facility] [place] [address] DISCHARGE SUMMARY Name: MARY COLÓN Room #: 208-P [facility] IN M.R.#: [id number] Admission: 03/08/18 Attend Phys: Fred Garcia MD, Discharge: 03/09/18 Date of : 61 Report #: [id number] THIS REPORT FOR: //name// CC: FAM unknown [facility] COURSE: The patient is a 52-year-old male who presents with some subtle ST elevation and chest pain, would wax and wane, few hours prior to his admission yesterday. I took him emergently to the catheterization lab after heparin bolus and had a subtotal hazy mid RCA lesion. This was successfully dilated and stented with a 2.75 x 14 Resolute drug-eluting stent, postdilated to 3.0 mm. He had a left main distal narrowing filling a relatively small circ OM that both had 60% to 70% narrowings, but these were not the culprit and relatively small in distribution. There was a SOLANO to an LAD, which is intact and the LAD was well preserved, extending around the apex. There was an SVG is filling a more distal OM. The right renal artery had a 40% ostial narrowing and the ejection fraction was near normal. I expect this to be normal after restoring flow in the RCA. The troponin is equivocal at 0.06. No EKG changes. He is stable. No chest pain. His groin has no bruit and no hematoma. DISCHARGE DIAGNOSES: 1. ST-elevation myocardial infarction with urgent intervention to right coronary artery, which was non-bypassed vessel, as stated above; left internal mammary artery to left anterior descending intact and saphenous vein graft to obtuse marginal intact. 2. Hypertension. 3. Hypercholesterolemia. 4. Diabetes. 5. Recovered alcohol and tobacco user. PLAN: No lifting for 48 hours and lying in tub, Jacuzzi or koenig for a week. Dual antiplatelet therapy for 1 year. We will continue home meds, except for the addition of the prasugrel 10 mg. Atorvastatin 10, linagliptin 5, glyburide 8 mg, insulin, carvedilol 25 b.i.d., aspirin and the prasugrel 10 mg a day. Followup is scheduled in 3 months. By: 0830 1251 Fred Garcia MD, FACC /nt
--- NOTE | ~2018-03-08 | EKG ---
[address] [address] ELECTROCARDIOGRAM REPORT Name: MARY COLÓNNE Room #: 208-P ADM IN M.R.#: [id number] Admission: 03/08/18 Attend Phys: Fred Garcia MD, Discharge: Date of : 61 Report #: [id number] THIS REPORT FOR: //name// [facility] Test Date: 2018-03-08 Test Time: 09:51:49 Pat Name: MARY COLÓN Department: Room: 208 P Gender: M Bindery Machine Feeder Offbearer: MAITE : 1965 Requested By: Fred Garcia Order Number: [id number] MD: Measurements Intervals [place] Rate: 69 P: 29 [place]: 142 QRS: 29 QRSD: 100 T: 86 QT: 394 QTc: 422 Interpretive Statements Sinus rhythm ST elev, probable normal early repol pattern Baseline wander in lead(s) V6 Compared to ECG 03/08/2018 06:28:25 No significant changes [email or web address] By: 0951 0951 Epiphany EpiphanyMD /EPI
--- NOTE | ~2018-03-08 | EKG ---
[place] [address] [facility] [place] [address] ELECTROCARDIOGRAM REPORT Name: MARY COLÓN Room #: 170-5 ADM IN M.R.#: [id number] Admission: 03/08/18 Attend Phys: Fred Garcia MD, Discharge: Date of : 61 Report #: [id number] THIS REPORT FOR: //name// [facility] ED Test Date: 2018-03-08 Test Time: 06:28:25 Pat Name: MARY COLÓN Department: Room: Gender: M Cardiovascular Invasive Specialist: ileana : 1965 Requested By: Mario Martínez Order Number: [id number] MD: Moe Amador Measurements Intervals [place] Rate: 75 P: 0 ND: 128 QRS: 29 QRSD: 95 T: 90 QT: 376 QTc: 420 Interpretive Statements Sinus rhythm Minimal ST depression, lateral leads Minimal ST elevation, inferior leads Compared to ECG 01/05/2018 20:41:42 ST (T wave) deviation now present Electronically Signed On 03-08-2018 8:10:56 CDT by Moe Amador [email or web address] <ELECTRONICALLY SIGNED> By: Moe Amador MD, [facility] 03/08/18 0810 7 7 Moe Amador MD, [facility] /EPI
--- NOTE | ~2018-03-08 | EKG ---
[place] [address] [facility] [facility] [place] [address] ELECTROCARDIOGRAM REPORT Name: MARY COLÓN Room #: 208-P ADM IN M.R.#: [id number] Admission: 03/08/18 Attend Phys: Fred Garcia MD, Discharge: Date of : 61 Report #: [id number] THIS REPORT FOR: //name// [facility] Test Date: 2018-03-08 Test Time: 09:51:49 Pat Name: MARY COLÓN Department: Room: 208 P Gender: M Electronics Maintenance Technician: MAITE : 1965 Requested By: Fred Garcia Order Number: [id number] MD: Moe Amador Measurements Intervals [place] Rate: 69 P: 29 CA: 142 QRS: 29 QRSD: 100 T: 86 QT: 394 QTc: 422 Interpretive Statements Sinus rhythm Minimal ST elevation, inferior leads Baseline wander in lead(s) V6 Compared to ECG 03/08/2018 06:28:25 No significant changes Electronically Signed On 03-09-2018 7:25:27 CDT by Moe Amador [email or web address] <ELECTRONICALLY SIGNED> By: Moe Amador MD, [facility] 03/09/18 0725 0951 0951 Moe Amador MD, [facility] /EPI
--- NOTE | ~2018-03-08 | EKG ---
[address] [place] [address] ELECTROCARDIOGRAM REPORT Name: MARY COLÓN Room #: 208-[facility] IN M.R.#: [id number] Admission: 03/08/18 Attend Phys: Fred Garcia MD, Discharge: 03/09/18 Date of : 61 Report #: [id number] THIS REPORT FOR: //name// [facility] Test Date: 2018-03-09 Test Time: 06:48:57 Pat Name: MARY COLÓN Department: Room: 208 P Gender: M Ski Patrol Officer: GR : 1965 Requested By: Fred Garcia Order Number: [id number] MD: Moe Amador Measurements Intervals [place] Rate: 73 P: 28 [place]: 136 QRS: 35 QRSD: 93 T: 80 QT: 386 QTc: 426 Interpretive Statements Sinus rhythm Normal tracing Compared to ECG 03/08/2018 06:28:25 No significant changes Electronically Signed On 03-12-2018 9:03:03 CDT by Moe Amador [email or web address] <ELECTRONICALLY SIGNED> By: Moe Amador MD, [facility] 03/12/18 0903 Moe Amador MD, [facility] /EPI
--- NOTE | ~2018-03-08 | CATHLAB ---
[facility] [address] [place] [address] INVASIVE PROCEDURE REPORT Name: ELDONMARY JESUSNE Room #: 208-P ADM IN M.R.#: [id number] Admission: 03/08/18 Attend Phys: Fred Garcia, Discharge: Date of : 61 Date of Service: 03/08/18 1732 Report #: [id number] THIS REPORT FOR: //name// APPROVED REPORT Study performed: 03/08/2018 07:17:56 Patient Details Patient Status: In-Patient Room #: The patient is a 52 year-old male Event Personnel Fred Garcia Biosecurity Officer, Silvia Black RTRebecca Monitor, Markell Tovar Penny, Wes trauma therapist Performed Art Access - R femoral artery* 93751 Initial Mod Sed Same Phys/QHP Gr5y 253531 86456 Mod Sed Same Phys/QHP Ea 833858 Left Heart Cath Coronaries, Bypass Grafts 7596307 LHCCORCABG Aortogram Abdominal Peripheral Angio 916562 Renal Bilateral Peripheral Angiography 0835736 CVRENALBIL PREM Revasc AMI Total/Sub Single RCA C9606 AMIREVSING Hemostasis w/ Mynx Indication STEMI Procedure Narrative The patient was brought electivelyemergently to the Cardiac Catheterization Laboratory and was prepped and draped in a sterile manner. The Right Groin^ was infiltrated with 1% Lidocaine subcutaneous anesthesia. A PINNACLE 6FR Sheath #[id number] sheath was inserted into the RFA^. Coronary angiography was performed using coronary diagnostic catheters. The right coronary system was accessed and visualized with a JR 4 catheter. The left coronary system was accessed and visualized with a JL 4 catheter. The left ventricle was accessed and visualized with a Pigtail catheter. Left ventriculogram was performed in DAVID projection. An aortogram of the abdominal aorta was performed. Closure device was deployed with a 6 Fr Mynx. The patient tolerated the procedure well and there were no complications associated with the procedure. There was no hematoma. Intraoperative Conscious Sedation Sedation start time: 07:56 Case end Time: 08:43 Fentanyl 50 mcg Versed 1.[address] [address] INVASIVE PROCEDURE REPORT Name: MARY COLÓN Room #: 208-P [facility] IN ..#: [id number] Admission: 03/08/18 Attend Phys: Fred Garcia, Discharge: Date of : 61 Date of Service: 03/08/18 1732 Report #: [id number] Fluoro Time: 12.31 minutes Dose: DAP 09188.50 cGycm2 1765 mGy Contrast Type and Amount: Omnipaque 220 ml Hemodynamics The aortic pressure is 128/64 mmHg with a mean of 94 mmHg. The left ventricular pressure is 112/11 mmHg with a mean of mmHg. The left ventricular end diastolic pressure is 22 mmHg. PCI Technique Lesion Percutaneous coronary intervention was performed on the mid right coronary artery. A LAUNCHER 6FR JR 4 #[id number] Guide Catheter was used to engage the ostium. A Luge Wire .014 x 182CM #[id number] Interventional Guidewire was used to cross the lesion. BALLOON DILATION A Balloon catheter Sprinter OTW 2.5 x 15 #[id number] was inserted and inflated up to 10.00atm for 23seconds. STENT DEPLOYMENT A drug-eluting stent RESOLUTE OTW 2.75 X 14 #[id number] was inserted and inflated up to 16.00atm for 32seconds. Conclusion #1 successful PTCA stent of the mid RCA subtotal lesion (infarct vessel) placement of a 2.75 x 14 resolute drug-eluting stent yielding 0% residual #2 left main distal narrowing of 60-70% giving rise to an occluded LAD and a circumflex. #3 distal left main tapered narrowing of 60-70% giving rise to circumflex and occluded LAD #4 the first OM is patent with a 60-70% mid vessel but small vessel lesion noted the distal circumflex occludes #5 the SOLANO to LAD is intact with mild diffuse disease in the LAD it extends around the apex #6 SVG mild to moderately diseased filling a small distal OM system #7 normal left ventricular size with subtle inferior wall leg EF 50-55% #8 left renal artery widely patent #9 right renal artery with 40% ostial narrowing Regulations and plan continue aggressive risk factor modification [address] [address] INVASIVE PROCEDURE REPORT Name: MARY COLÓN TERESA Room #: 208-P [facility] IN M.R.#: [id number] Admission: 03/08/18 Attend Phys: Fred Garcia, Discharge: Date of : 61 Date of Service: 03/08/181731 Report #: [id number] dual antiplatelet therapy. Minx closure device was utilized. Patient transfer to [facility] in stable condition <ELECTRONICALLY SIGNED> By: Fred Garcia MD, FACC 03/08/181731 31 31 Fred Garcia MD, FACC /INF
--- NOTE | ~2018-03-08 | H ---
[facility] [place] [address] HISTORY AND PHYSICAL Name: MARY COLÓN Room #: 208-P ADM IN M.R.#: [id number] Admission: 03/08/18 Attend Phys: Fred Garcia MD, Discharge: Date of : 61 Report #: [id number] THIS REPORT FOR: //name// CC: FAM unknown Fred Garcia DATE OF SERVICE: 03/08/2018 PRIMARY CARE PHYSICIAN: HISTORY OF PRESENT ILLNESS: The patient is a 52-year-old male who comes in today this morning to the Emergency Room, drove himself in with some recurrent chest pressure, heaviness. He has a somewhat complicated history of cardiac with prior bypass 5 or 6 years ago elsewhere and may be a stent placed since then. Last cath was 2 or 3 years ago. None of this was at [facility]. It looks like he had a nuclear stress test here 2 years ago that was negative. He has not seen Cardiology in a year or two he states. He has been compliant with his medications he states, lisinopril 10, metformin 1000 b.i.d., Amaryl 8, aspirin, carvedilol 25 b.i.d., HCTZ 25, atorvastatin 10, and Januvia. He perhaps has been slightly more fatigued he states, but certainly not had any unstable anginal symptoms until this event this morning. He does present with some subtle ST elevation in the inferior leads, subtle depression in 1 and aVL. Still low grade discomfort despite some pain medication and heparin. PAST MEDICAL HISTORY: Positive for coronary artery disease with bypass 2-vessel stent since that time, hypertension, hypercholesterolemia, 10 years of diabetic. No other surgeries. ALLERGIES: No known drug allergies. SOCIAL HISTORY: He is , 2 sons. He works for the [employer]. Recovering alcoholic. No alcohol in 20 years and quit tobacco 12 years ago. FAMILY HISTORY: Mother had a valve replacement. REVIEW OF SYSTEMS: Essentially negative except for some nocturia, frequency. PHYSICAL EXAMINATION: VITAL SIGNS: Blood pressure . HEENT: Eyes reveal xanthelasmas. Pharynx is clear. NECK: Shows preserved upstrokes without JVD or bruits. LUNGS: Clear. CARDIOVASCULAR: Regular rate and rhythm, S1, S2. ABDOMEN: Soft. No HSM or abdominal bruit. EXTREMITIES: Reveal no edema. His pulses were intact. NEUROLOGIC: Nonfocal. [facility] [address] [place] [address] HISTORY AND PHYSICAL Name: MARY COLÓN Room #: 208-P [facility] IN .R.#: [id number] Admission: 03/08/18 Attend Phys: Fred Garcia MD, Discharge: Date of : 61 Report #: [id number] SKIN: Warm and dry without xanthoma or ulcer. MUSCULOSKELETAL: No gross joint deformity. ASSESSMENT: 1. A stuttering acute inferior wall myocardial infarction, subtle ST elevation consistent with ST-elevation myocardial infarction. 2. Coronary artery disease with history of 2-vessel bypass and stent after. 3. Hypertension. 4. Diabetes type 2. 5. Hypercholesterolemia. 6. Recovered alcohol and tobacco user. RECOMMENDATIONS AND PLAN: We will proceed emergently to the Catheterization Lab. Aspirin, statin, heparin bolus have been given and we will proceed urgently for intervention as indicated. Risks, benefits and alternatives were discussed with the patient. Thank you for asking me to assist in the care of this patient. By: 0848 0909 Fred Garcia MD, FACC /nt
[~2018-03-08 05:23] MED LIST changes: +JANUVIA25 MG PO
[2018-03-08 05:26] VITALS: BP 108/71
[2018-03-08 05:55] LABS: ABSOLUTE NEUTROPHILS 3.3 thou/uL (1.4-8.2); BASOPHILS 1.4 % (0.0-2.0); EOSINOPHILS 5.3 % (0.0-3.0); HEMATOCRIT 38.4 % (42.0-52.0); HEMOGLOBIN 13.6 gm/dL (14.0-18.0); LYMPHOCYTES 39.9 % (24.0-44.0); MCH 29.4 pg (26.0-34.0); MCHC 35.4 g/dL (28.0-37.0); MCV 83.2 fL (80.0-100.0); MONOCYTES 9.2 % (1.0-8.0); PLATELET COUNT 270 thou/uL (150-400); POLYS 44.2 % (36.0-66.0); RBC 4.61 mil/uL (4.50-6.00); RDW 13.8 % (10.5-14.5); WBC 7.4 thou/uL (4.0-11.0)
[2018-03-08 06:01] LABS: ANION GAP 14 mmol/L (7-16); BUN 17 mg/dL (7-18); CALCIUM 8.6 mg/dL (8.5-10.1); CHLORIDE 102 mmol/L (98-107); CO2 20 mmol/L (21-32); CREATININE 1.2 mg/dL (0.7-1.3); GLUCOSE 390 mg/dL (74-106); POTASSIUM 3.7 mmol/L (3.5-5.1); SODIUM 136 mmol/L (136-145)
[2018-03-08 06:10] LABS: TROPONIN-I <0.06 ng/mL (<0.06)
[2018-03-08 07:30] VITALS: BP 121/72
[2018-03-08 07:48] LABS: APTT 24.5 Seconds (24.5-32.8)
[2018-03-08 09:11] VITALS: BP 113/68
[2018-03-08 15:27] VITALS: BP 110/73
[2018-03-08 19:05] VITALS: BP 125/72
[2018-03-09 00:24] VITALS: BP 132/86
[2018-03-09 04:46] VITALS: BP 120/88
[2018-03-09 05:31] LABS: ABSOLUTE NEUTROPHILS 4.4 thou/uL (1.4-8.2); BASOPHILS 0.8 % (0.0-2.0); EOSINOPHILS 4.4 % (0.0-3.0); HEMATOCRIT 38.3 % (42.0-52.0); HEMOGLOBIN 13.5 gm/dL (14.0-18.0); LYMPHOCYTES 26.7 % (24.0-44.0); MCH 28.7 pg (26.0-34.0); MCHC 35.3 g/dL (28.0-37.0); MCV 81.2 fL (80.0-100.0); PLATELET COUNT 250 thou/uL (150-400); POLYS 58.1 % (36.0-66.0); RBC 4.71 mil/uL (4.50-6.00); RDW 14.1 % (10.5-14.5); WBC 7.5 thou/uL (4.0-11.0)
[2018-03-09 05:55] LABS: ALBUMIN 3.2 g/dL (3.4-5.0); CALCIUM 8.6 mg/dL (8.5-10.1); CREATININE 0.8 mg/dL (0.7-1.3); MAGNESIUM 1.7 mg/dL (1.8-2.4); POTASSIUM 3.7 mmol/L (3.5-5.1); TOTAL BILIRUBIN 0.4 mg/dL (<0.1-1.0); TOTAL PROTEIN 6.7 g/dL (6.4-8.2)
[2018-03-09 06:40] LABS: CHOLESTEROL 156 mg/dL (<200); HDL CHOLESTEROL 52 mg/dL (>40); LDL CHOLESTEROL 78 mg/dL (<100); TRIGLYCERIDE 132 mg/dL (<150); TROPONIN-I <0.06 ng/mL (<0.06); VLDL 26 mg/dL (<40)
[2018-03-09 07:01] LABS: TSH 0.83 uIU/mL (0.358-3.740)
[2018-03-09 08:16] VITALS: BP 147/96
[2018-03-09] MEDS ORDERED: ASPIR-TRIN325 MG PO (08:19)
[2018-03-09] MEDS ORDERED: EFFIENT10 MG PO (08:19)
[2018-03-09 10:07] VITALS: BP 147/96
[2018-03-09 11:24] VITALS: BP 147/96
== END 2018-03-09 11:10 | disposition home or self-care (01) | DRG 246 ==
LOC: ER 05:23 → EROBS 07:13 → 2N 07:13 → ENTRNSPT 03-09 10:52 → EDTRNSPTSTS 03-09 10:54 → 2N 03-09 11:10
PROVIDERS: Emergency Medicine; Internal Medicine Cardiovascular Disease; Internal Medicine Geriatric Medicine
PROC: 027034Z Dilation of Coronary Artery, One Artery with Drug-eluting Intraluminal Device, Percutaneous Approach (ICD-10-PCS; principal; 2018-03-08)
PROC: B2111ZZ Fluoroscopy of Multiple Coronary Arteries using Low Osmolar Contrast (ICD-10-PCS; 2018-03-08)
PROC: 4A023N7 Measurement of Cardiac Sampling and Pressure, Left Heart, Percutaneous Approach (ICD-10-PCS; 2018-03-08)
PROC: B2181ZZ Fluoroscopy of Left Internal Mammary Bypass Graft using Low Osmolar Contrast (ICD-10-PCS; 2018-03-08)
PROC: B2151ZZ Fluoroscopy of Left Heart using Low Osmolar Contrast (ICD-10-PCS; 2018-03-08)
PROC: B3101ZZ Fluoroscopy of Thoracic Aorta using Low Osmolar Contrast (ICD-10-PCS; 2018-03-08)
PROC: B2131ZZ Fluoroscopy of Multiple Coronary Artery Bypass Grafts using Low Osmolar Contrast (ICD-10-PCS; 2018-03-08)
PROC: B4181ZZ Fluoroscopy of Bilateral Renal Arteries using Low Osmolar Contrast (ICD-10-PCS; 2018-03-08)
DX: I21.19 ST elevation (STEMI) myocardial infarction involving other coronary artery of inferior wall (principal); N17.0 Acute kidney failure with tubular necrosis; I25.10 Atherosclerotic heart disease of native coronary artery without angina pectoris; I10 Essential (primary) hypertension; E78.00 Pure hypercholesterolemia, unspecified; E78.5 Hyperlipidemia, unspecified; I70.1 Atherosclerosis of renal artery; E11.9 Type 2 diabetes mellitus without complications; Z79.82 Long term (current) use of aspirin; Z79.899 Other long term (current) drug therapy; Z95.5 Presence of coronary angioplasty implant and graft; Z87.891 Personal history of nicotine dependence; Z82.49 Family history of ischemic heart disease and other diseases of the circulatory system; Z95.1 Presence of aortocoronary bypass graft
CPT/HCPCS: 10081

== ENCOUNTER 2018-03-12 13:18 | Emergency (ER) | payer OTHER ==
[~2018-03-12] VITALS: Ht 172.7 cm; Wt 83.9 kg
[~2018-03-12 13:18] MED LIST changes: +EFFIENT10 MG PO
== END 2018-03-12 15:14 | disposition home or self-care (01) ==
LOC: ER 13:18
DX: G89.18 Other acute postprocedural pain (principal); R10.31 Right lower quadrant pain; M79.604 Pain in right leg; E11.9 Type 2 diabetes mellitus without complications; I25.2 Old myocardial infarction; I10 Essential (primary) hypertension; E78.5 Hyperlipidemia, unspecified; Z95.5 Presence of coronary angioplasty implant and graft; Z87.891 Personal history of nicotine dependence

== ENCOUNTER 2018-03-22 22:56 | Emergency (ER) | payer OTHER ==
[~2018-03-22] VITALS: Ht 170.2 cm; Wt 90.7 kg
== END 2018-03-23 00:32 | disposition home or self-care (01) ==
LOC: ER 22:56
DX: M79.651 Pain in right thigh (principal); G89.18 Other acute postprocedural pain; E11.9 Type 2 diabetes mellitus without complications; I25.2 Old myocardial infarction; I10 Essential (primary) hypertension; E78.5 Hyperlipidemia, unspecified; Z95.5 Presence of coronary angioplasty implant and graft; Z87.891 Personal history of nicotine dependence

== ENCOUNTER 2018-04-16 06:21 | Emergency (ER) | payer OTHER ==
[~2018-04-16] VITALS: Ht 172.7 cm; Wt 83.9 kg
--- NOTE | ~2018-04-16 | EKG ---
[place] [address] [employer] [place] [address] ELECTROCARDIOGRAM REPORT Name: MARY COLÓN [id number] Admission: 04/16/18 Attend Phys: Discharge: Date of : 61 Report #: [id number] THIS REPORT FOR: //name// [facility] ED Test Date: 2018-04-16 Test Time: 07:04:29 Pat Name: MARY COLÓN Department: Room: Gender: M Financial Compliance Examiner: ivan : 1965 Requested By: Kelin Pearl Order Number: [id number] MD: Moe Amador Measurements Intervals [place] Rate: 76 P: -1 VT: 121 QRS: 27 QRSD: 96 T: 105 QT: 394 QTc: 444 Interpretive Statements Sinus rhythm Minimal ST elevation, inferior leads Compared to ECG 03/09/2018 06:48:57 No significant change was found Electronically Signed On 04-16-2018 8:25:14 CDT by Moe Amador [email or web address] <ELECTRONICALLY SIGNED> By: Moe Amador MD, [facility] 04/16/18 0825 0704 0704 Moe Amador MD, FACC /EPI
[2018-04-16 07:06] LABS: HEMATOCRIT 36.6 % (42.0-52.0); MCH 29.2 pg (26.0-34.0); MCHC 35.4 g/dL (28.0-37.0); MCV 82.4 fL (80.0-100.0); PLATELET COUNT 280 thou/uL (150-400); RBC 4.44 mil/uL (4.50-6.00); RDW 13.8 % (10.5-14.5); WBC 5.5 thou/uL (4.0-11.0)
[2018-04-16 07:10] LABS: ANION GAP 12 mmol/L (7-16); BUN 17 mg/dL (7-18); CALCIUM 8.6 mg/dL (8.5-10.1); CHLORIDE 101 mmol/L (98-107); CO2 21 mmol/L (21-32); CREATININE 1.2 mg/dL (0.7-1.3); GLUCOSE 439 mg/dL (74-106); POTASSIUM 3.4 mmol/L (3.5-5.1); SODIUM 134 mmol/L (136-145)
[2018-04-16 07:19] LABS: TROPONIN-I <0.06 ng/mL (<0.06)
[2018-04-16 07:57] LABS: ABSOLUTE NEUTROPHILS 2.3 thou/uL (1.4-8.2); PLATELET ESTIMATE NORMAL
== END 2018-04-16 09:50 | disposition home or self-care (01) ==
LOC: ER 06:21
PROVIDERS: Emergency Medicine
DX: R07.89 Other chest pain (principal); R06.00 Dyspnea, unspecified; R06.02 Shortness of breath; E11.9 Type 2 diabetes mellitus without complications; I10 Essential (primary) hypertension; E78.5 Hyperlipidemia, unspecified; Z95.5 Presence of coronary angioplasty implant and graft; I25.2 Old myocardial infarction; Z95.1 Presence of aortocoronary bypass graft; Z87.891 Personal history of nicotine dependence

== ENCOUNTER 2018-04-17 22:35 | Emergency (ER) | payer OTHER ==
[~2018-04-17] VITALS: Ht 172.7 cm; Wt 93.0 kg
--- NOTE | ~2018-04-17 | EKG ---
[place] [address] [facility] [employer] [place] [address] ELECTROCARDIOGRAM REPORT Name: MARY COLÓN [id number] Admission: 04/17/18 Attend Phys: Discharge: 04/18/18 Date of : 61 Report #: [id number] THIS REPORT FOR: //name// [facility] ED Test Date: 2018-04-17 Test Time: 23:01:01 Pat Name: MARY COLÓN Department: Room: 208 Gender: Construction Project Assistant: Curt GUPTA : 1965 Requested By: Eugenio Weber Order Number: [id number] MD: Moe Amador Measurements Intervals [place] Rate: 92 P: 0 MN: 116 QRS: 51 QRSD: 108 T: 86 QT: 372 QTc: 461 Interpretive Statements Sinus rhythm Borderline short MN interval Nonspecific ST segment abnormality Compared to ECG 04/16/2018 07:04:29 No significant changes Electronically Signed On 04-18-2018 8:12:39 CDT by Moe Amador [email or web address] <ELECTRONICALLY SIGNED> By: Moe Amador MD, [facility] 04/18/1812 D: 082300 00 Moe Amador MD, FACC /EPI
[2018-04-17 22:41] VITALS: BP 99/67
[2018-04-17 23:45] LABS: ABSOLUTE NEUTROPHILS 3.4 thou/uL (1.4-8.2); BASOPHILS 1.3 % (0.0-2.0); EOSINOPHILS 3.4 % (0.0-3.0); HEMATOCRIT 37.3 % (42.0-52.0); HEMOGLOBIN 13.4 gm/dL (14.0-18.0); LYMPHOCYTES 39.8 % (24.0-44.0); MCH 29.1 pg (26.0-34.0); MCHC 35.8 g/dL (28.0-37.0); MCV 81.2 fL (80.0-100.0); MONOCYTES 10.1 % (1.0-8.0); PLATELET COUNT 313 thou/uL (150-400); POLYS 45.4 % (36.0-66.0); RDW 13.7 % (10.5-14.5); WBC 7.5 thou/uL (4.0-11.0)
[2018-04-17 23:49] LABS: ANION GAP 13 mmol/L (7-16); BUN 21 mg/dL (7-18); CALCIUM 9.1 mg/dL (8.5-10.1); CHLORIDE 102 mmol/L (98-107); CO2 20 mmol/L (21-32); CREATININE 1.3 mg/dL (0.7-1.3); GLUCOSE 344 mg/dL (74-106); POTASSIUM 3.1 mmol/L (3.5-5.1); SODIUM 135 mmol/L (136-145)
[2018-04-17 23:58] LABS: ALBUMIN 3.6 g/dL (3.4-5.0); MAGNESIUM 1.7 mg/dL (1.8-2.4); SGOT 22 U/L (15-37); SGPT 34 U/L (30-65); TOTAL BILIRUBIN 0.4 mg/dL (<0.1-1.0); TOTAL PROTEIN 7.3 g/dL (6.4-8.2); TROPONIN-I <0.06 ng/mL (<0.06)
[2018-04-18 00:31] VITALS: BP 131/78
[2018-04-18 00:43] VITALS: BP 131/78
== END 2018-04-18 01:44 | disposition left against medical advice (07) ==
LOC: ER 22:35 → EROBS 04-18 00:09 → ER 04-18 01:44 → 2N 04-18 01:45 → EROBS 04-18 01:45
PROVIDERS: Emergency Medicine
DX: I25.10 Atherosclerotic heart disease of native coronary artery without angina pectoris (principal); E87.6 Hypokalemia; E83.42 Hypomagnesemia; E11.9 Type 2 diabetes mellitus without complications; I10 Essential (primary) hypertension; E78.5 Hyperlipidemia, unspecified; Z95.5 Presence of coronary angioplasty implant and graft; Z87.891 Personal history of nicotine dependence

== ENCOUNTER 2018-04-27 21:44 | Emergency (ER) | payer OTHER ==
[~2018-04-27] VITALS: Ht 170.2 cm; Wt 83.9 kg
[2018-04-27] MEDS ORDERED: ZPAK PO (21:52)
[2018-04-27] MEDS ORDERED: ACCUNEB SO1.25 MG/1 (21:53)
[2018-04-27] MEDS ORDERED: MEDROLDOSEPACK (21:53)
[2018-04-27] MEDS ORDERED: AUGMENTIN 875-1 EACH PO (23:28)
== END 2018-04-27 23:45 | disposition home or self-care (01) ==
LOC: ER 21:44
DX: S01.81XA Laceration without foreign body of other part of head, initial encounter (principal); S01.83XA Puncture wound without foreign body of other part of head, initial encounter; E11.9 Type 2 diabetes mellitus without complications; I10 Essential (primary) hypertension; E78.5 Hyperlipidemia, unspecified; Z95.5 Presence of coronary angioplasty implant and graft; Z87.891 Personal history of nicotine dependence; W54.0XXA Bitten by dog, initial encounter; Y92.89 Other specified places as the place of occurrence of the external cause; Y93.89 Activity, other specified; Y99.8 Other external cause status

== ENCOUNTER 2018-06-02 18:51 | Inpatient (IN) | payer OTHER ==
[~2018-06-02] VITALS: Ht 172.7 cm; Wt 83.9 kg
--- NOTE | ~2018-06-02 | EKG ---
[address] [address] ELECTROCARDIOGRAM REPORT Name: MARY COLÓN Room #: 215- DIS IN M.R.#: [id number] Admission: 06/02/18 Attend Phys: Tremaine Lomax MD Discharge: 06/03/18 Date of : 61 Report #: [id number] THIS REPORT FOR: //name// [facility] ED Test Date: 2018-06-02 Test Time: 20:44:54 Pat Name: MARY COLÓN Department: Room: 215 Gender: M Warm In: ALCON : 1965 Requested By: Tremaine Lomax Order Number: [id number] MD: Jose Aquino Measurements Intervals [place] Rate: 86 P: 19 MT: 122 QRS: 38 QRSD: 93 T: 89 QT: 367 QTc: 439 Interpretive Statements Sinus rhythm Minimal ST depression, lateral leads Minimal ST elevation, inferior leads Compared to ECG 04/19/2018 19:33:55 ST (T wave) deviation unchanged Early repolarization no longer present Electronically Signed On 06-04-2018 17:34:19 CDT by Jose Aquino [email or web address] <ELECTRONICALLY SIGNED> By: Jose Aquino MD 06/04/18 1734 43 43 Jose Aquino MD /EPI
--- NOTE | ~2018-06-02 | HC ---
[facility] [place] [address] CONSULTATION Name: MARY COLÓN Room #: 215-P [facility] IN M.R.#: [id number] Admission: 06/02/18 Attend Phys: Tremaine Lomax MD Discharge: 06/03/18 Date of : 61 Report #: [id number] THIS REPORT FOR: //name// CC: FAM unknown Tremaine Lomax HISTORY OF PRESENT ILLNESS: The patient is a 52-year-old male who is well known to myself. He has had documented coronary artery disease with prior bypass and recent intervention with stent placement in February of this year. He denies PND, orthopnea or peripheral edema. He has had lots of life stressors that piled up yesterday buying a car, making car payments, moving in with his ex- back in and other issues. He had begun to have some chest discomfort and some tingling into his hands. He has been compliant with his medications. He denies PND, orthopnea as I stated. He has not had any recurrent symptoms since the stent was placed. He had a coronary anatomy from February, was a stent to the mid RCA with an acute infarct vessel with a 2.75 x 14 Resolute postdilated to 3.1 mm. Left main was high-grade but essentially gave rise to nothing as the LAD and circ were occluded. The first OM at 60%-70%, small vessel not at target for intervention. The SOLANO to the LAD intact with mild disease, so the LAD does extend around the apex. The SVG to a distal small OM was intact. Ejection fraction was near normal and had a right renal artery stenosis of 40%. He has been compliant with medications and they have been aspirin, prasugrel, atorvastatin 10, HCTZ, Januvia, glyburide 8, metformin and Zestril 10. PAST MEDICAL HISTORY: Positive for coronary artery disease with prior CABG and recent stent placement to the [place] right diabetes, hypertension, hypercholesterolemia, prior drug, alcohol, tobacco abuser, currently none. FAMILY HISTORY: Positive for premature coronary artery disease. SOCIAL HISTORY: He is about to move back in with his ex-. He works for the [employer] He is currently sober. LABORATORY WORK: Potassium 3.7, creatinine 1.3. Troponin negative. H and H 13 and 35. PHYSICAL EXAMINATION: GENERAL: Pleasant, alert. He has calm down some now. Blood pressure 130/86, pulse 70s. HEENT: Eyes reveal xanthelasmas. Pharynx is clear. NECK: Shows preserved upstrokes without JVD or bruits. LUNGS: Clear. CARDIOVASCULAR: Regular rate and rhythm, S1, S2, without murmur or gallop. ABDOMEN: Soft. No HSM or abdominal bruit. EXTREMITIES: Reveal no edema. Pulses were intact. NEUROLOGIC: Nonfocal. SKIN: Warm and dry without xanthoma or ulcer. [address] [address] CONSULTATION Name: MARY COLÓN Room #: 215-P [facility] IN M.R.#: [id number] Admission: 06/02/18 Attend Phys: Tremaine Lomax MD Discharge: 06/03/18 Date of : 61 Report #: [id number] MUSCULOSKELETAL: No gross joint deformity. ASSESSMENT: 1. Chest pain, noncardiac, possibly consistent with a panic attack. 2. Coronary artery disease with history of coronary artery bypass graft and a recent RCA stent placement in February of this year. 3. Mild ischemic cardiomyopathy of 50%-55%. 4. Hypertension. 5. Hypercholesterolemia. 6. Diabetes. 7. History of alcohol, drug and tobacco abuse, currently sober. RECOMMENDATIONS AND PLAN: He is stable from a cardiac perspective. We did talk about hopefully some modifications or his lifestyle here because of the stressors, but he is religiously takes his medications he states and has not had any exertional discomfort. At this point with the stent being less than 3 months, it is highly unlikely there would be any restenosis. At this point, these are either wide open or close consistent with an infarct and certainly, this is not an infarct. I will cancel his followup appointment with me in June. I will plan on a stress echo in August in the office. We will call to schedule. He is okay for discharge to home continuing the same home medications. We will check lipids and stress echo in 3 months. <ELECTRONICALLY SIGNED> By: Fred Garcia MD, FACC 06/13/18 1257 0946 1316 Fred Garcia MD, FACC /nt
--- NOTE | ~2018-06-02 | EKG ---
[address] [address] ELECTROCARDIOGRAM REPORT Name: MARY COLÓN Room #: 215-[facility] IN M.R.#: [id number] Admission: 06/02/18 Attend Phys: Tremaine Lomax MD Discharge: 06/03/18 Date of : 61 Report #: [id number] THIS REPORT FOR: //name// [facility] ED Test Date: 2018-06-02 Test Time: 19:01:24 Pat Name: MARY COLÓN Department: Room: [facility] Gender: M Pickle Cutter: TSTMARGARETTE : 1965 Requested By: Mario Martínez Order Number: [id number] MD: Jose Aquino Measurements Intervals [place] Rate: 86 P: 9 ME: 125 QRS: 43 QRSD: 94 T: 84 QT: 377 QTc: 451 Interpretive Statements Sinus rhythm Minimal ST elevation, inferior leads similar to prior EKG Baseline wander in lead(s) V6 Compared to ECG 04/19/2018 19:33:55 Electronically Signed On 06-04-2018 17:32:36 CDT by Jose Aquino [email or web address] <ELECTRONICALLY SIGNED> By: Jose Aquino MD 06/04/18 1732 190 00 Jose Aquino MD /EPI
--- NOTE | ~2018-06-02 | EKG ---
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 Transportation Operator: TSTMARGARETTE : 1965 Requested By: Mario Martínez Order Number: [id number] MD: Jose Aquino Measurements Intervals [place] Rate: 82 P: 19 MS: 139 QRS: 45 QRSD: 92 T: 86 QT: 370 QTc: 432 Interpretive Statements Sinus rhythm Minimal ST depression, lateral leads Minimal ST elevation, inferior leads similar to prior Compared to ECG 04/19/2018 19:33:55 Electronically Signed On 06-04-2018 17:32:55 CDT by Jose Aquino [email or web address] <ELECTRONICALLY SIGNED> By: Jose Aquino MD 06/04/18 1732 07 07 Jose Aquino MD /EPI
[~2018-06-02 18:51] MED LIST changes: +ACCUNEB SO1.25 MG/1; +MEDROLDOSEPACK
[2018-06-02 18:58] VITALS: BP 91/60
[2018-06-02 19:48] LABS: HEMATOCRIT 35.7 % (42.0-52.0); HEMOGLOBIN 13.3 gm/dL (14.0-18.0); MCH 30.4 pg (26.0-34.0); MCHC 37.3 g/dL (28.0-37.0); MCV 81.5 fL (80.0-100.0); RBC 4.38 mil/uL (4.50-6.00); RDW 14.2 % (10.5-14.5); WBC 6.5 thou/uL (4.0-11.0)
[2018-06-02 19:59] LABS: ANION GAP 14 mmol/L (7-16); BUN 28 mg/dL (7-18); CALCIUM 9.6 mg/dL (8.5-10.1); CHLORIDE 102 mmol/L (98-107); CO2 22 mmol/L (21-32); CREATININE 1.3 mg/dL (0.7-1.3); GLUCOSE 222 mg/dL (74-106); POTASSIUM 3.7 mmol/L (3.5-5.1); SODIUM 138 mmol/L (136-145)
[2018-06-02 20:08] LABS: ALBUMIN 3.5 g/dL (3.4-5.0); SGOT 18 U/L (15-37); SGPT 30 U/L (30-65); TOTAL BILIRUBIN 0.4 mg/dL (<0.1-1.0); TOTAL PROTEIN 7.3 g/dL (6.4-8.2); TROPONIN-I <0.06 ng/mL (<0.06)
[2018-06-02 20:50] VITALS: BP 116/79
[2018-06-02 21:20] VITALS: BP 118/80
[2018-06-02 21:33] VITALS: BP 119/74
[2018-06-03 04:52] LABS: CHOLESTEROL 156 mg/dL (<200); HDL CHOLESTEROL 45 mg/dL (>40); LDL CHOLESTEROL 66 mg/dL (<100); TC:HDL 3.5 Ratio (Not establshd); TRIGLYCERIDE 225 mg/dL (<150); VLDL 45 mg/dL (<40)
[2018-06-03 04:55] VITALS: BP 122/84
[2018-06-03 05:17] LABS: SERUM ASSESSMENT Clear
[2018-06-03 07:54] VITALS: BP 130/86
[2018-06-03 10:44] VITALS: BP 151/95
[2018-06-03 10:59] VITALS: BP 151/95
[2018-06-03 22:09] LABS: GLYCOHEMOGLOBIN (HGB A1C) 9.9 % (4.8-5.6)
== END 2018-06-03 11:25 | disposition home or self-care (01) | DRG 313 ==
LOC: ER 18:51 → EROBS 20:20 → 2N 21:26
PROVIDERS: Emergency Medicine; Nurse Practitioner Acute Care
DX: R07.89 Other chest pain (principal); E11.9 Type 2 diabetes mellitus without complications; I10 Essential (primary) hypertension; I25.5 Ischemic cardiomyopathy; I25.10 Atherosclerotic heart disease of native coronary artery without angina pectoris; E78.00 Pure hypercholesterolemia, unspecified; I25.2 Old myocardial infarction; Z95.1 Presence of aortocoronary bypass graft; Z95.5 Presence of coronary angioplasty implant and graft; Z87.891 Personal history of nicotine dependence; Z79.51 Long term (current) use of inhaled steroids; Z79.82 Long term (current) use of aspirin; Z79.84 Long term (current) use of oral hypoglycemic drugs; Z79.899 Other long term (current) drug therapy; Z82.49 Family history of ischemic heart disease and other diseases of the circulatory system
CPT/HCPCS: 10081

== ENCOUNTER 2018-06-25 15:12 | Emergency (ER) | payer OTHER ==
[~2018-06-25] VITALS: Ht 170.2 cm; Wt 83.9 kg
--- NOTE | ~2018-06-25 | EKG ---
[place] [address] [facility] [address] ELECTROCARDIOGRAM REPORT Name: MARY COLÓN [facility] [id number] Admission: 06/25/18 Attend Phys: Discharge: 06/25/18 Date of : 61 Report #: [id number] THIS REPORT FOR: //name// [facility] ED Test Date: 2018-06-25 Test Time: 15:48:12 Pat Name: MARY COLÓN Department: Room: Gender: M Teacher Specialist: : 1965 Requested By: Tika Benson Order Number: [id number] MD: Jose Aquino Measurements Intervals [place] Rate: 74 P: 32 TX: 127 QRS: 32 QRSD: 92 T: 69 QT: 380 QTc: 422 Interpretive Statements Sinus rhythm ST elev, probable normal early repol pattern Compared to ECG 06/02/2018 20:44:54 No significant changes Electronically Signed On 06-26-2018 17:08:25 CDT by Jose Aquino [email or web address] <ELECTRONICALLY SIGNED> By: Jose Aquino MD 06/26/18 1708 1548 1548 MD MANISH Evans
[2018-06-25 16:03] LABS: HEMATOCRIT 36.1 % (42.0-52.0); HEMOGLOBIN 12.9 gm/dL (14.0-18.0); MCH 30.2 pg (26.0-34.0); MCHC 35.8 g/dL (28.0-37.0); MCV 84.3 fL (80.0-100.0); RBC 4.28 mil/uL (4.50-6.00); WBC 6.9 thou/uL (4.0-11.0)
[2018-06-25 16:11] LABS: ANION GAP 9 mmol/L (7-16); BUN 12 mg/dL (7-18); CALCIUM 9.4 mg/dL (8.5-10.1); CHLORIDE 101 mmol/L (98-107); CO2 24 mmol/L (21-32); CREATININE 0.9 mg/dL (0.7-1.3); GLUCOSE 236 mg/dL (74-106); POTASSIUM 3.8 mmol/L (3.5-5.1); SODIUM 134 mmol/L (136-145)
[2018-06-25 16:22] LABS: ALBUMIN 3.4 g/dL (3.4-5.0); SGOT 19 U/L (15-37); SGPT 35 U/L (30-65); TOTAL BILIRUBIN 0.3 mg/dL (<0.1-1.0); TOTAL PROTEIN 6.9 g/dL (6.4-8.2); TROPONIN-I <0.06 ng/mL (<0.06)
[2018-06-25] MEDS ORDERED: MEDROLDOSEPACK PO (16:37)
[2018-06-25] MEDS ORDERED: NORFLEX100 MG PO (16:37)
== END 2018-06-25 17:03 | disposition home or self-care (01) ==
LOC: ER 15:12
PROVIDERS: Physician Assistant
DX: M54.6 Pain in thoracic spine (principal); G56.02 Carpal tunnel syndrome, left upper limb; I10 Essential (primary) hypertension; E78.00 Pure hypercholesterolemia, unspecified; E11.9 Type 2 diabetes mellitus without complications; I25.2 Old myocardial infarction; I25.10 Atherosclerotic heart disease of native coronary artery without angina pectoris; Z95.1 Presence of aortocoronary bypass graft; Z87.891 Personal history of nicotine dependence; Z79.899 Other long term (current) drug therapy

== ENCOUNTER 2018-07-13 04:27 | Emergency (ER) | payer OTHER ==
[~2018-07-13] VITALS: Ht 170.2 cm; Wt 83.9 kg
--- NOTE | ~2018-07-13 | EKG ---
[address] [address] ELECTROCARDIOGRAM REPORT Name: MARY COLÓN [id number] Admission: 07/13/18 Attend Phys: Discharge: 07/13/18 Date of : 61 Report #: [id number] THIS REPORT FOR: //name// [facility] ED Test Date: 2018-07-13 Test Time: 04:32:02 Pat Name: MARY COLÓN Department: Room: Gender: Clinical Services Consultant: [facility] : 1965 Requested By: Ana María Deshpande Order Number: [id number] MD: Moe Amador Measurements Intervals [place] Rate: 81 P: 31 MS: 123 QRS: 31 QRSD: 90 T: 88 QT: 370 QTc: 430 Interpretive Statements Sinus rhythm No significant abnormality Compared to ECG 06/25/2018 15:48:12 No significant changes Electronically Signed On 07-13-2018 9:01:28 CDT by Moe Amador [email or web address] <ELECTRONICALLY SIGNED> By: Moe Amador MD, [facility] 07/13/18 0901 0432 0432 Moe Amador MD, FACC /EPI
[2018-07-13 05:20] LABS: ANION GAP 12 mmol/L (7-16); BUN 18 mg/dL (7-18); CALCIUM 9.1 mg/dL (8.5-10.1); CHLORIDE 103 mmol/L (98-107); CO2 22 mmol/L (21-32); GLUCOSE 218 mg/dL (74-106); HEMATOCRIT 39.2 % (42.0-52.0); HEMOGLOBIN 13.9 gm/dL (14.0-18.0); MCH 29.1 pg (26.0-34.0); MCHC 35.4 g/dL (28.0-37.0); MCV 82.3 fL (80.0-100.0); PLATELET COUNT 243 thou/uL (150-400); POTASSIUM 3.8 mmol/L (3.5-5.1); RBC 4.76 mil/uL (4.50-6.00); RDW 13.6 % (10.5-14.5); SODIUM 137 mmol/L (136-145); WBC 5.5 thou/uL (4.0-11.0)
[2018-07-13 05:29] LABS: TROPONIN-I <0.06 ng/mL (<0.06)
[2018-07-13 05:38] LABS: ABSOLUTE NEUTROPHILS 2.2 thou/uL (1.4-8.2); ATYPICAL LYMPHS 1 %
[2018-07-13 06:39] VITALS: BP 132/96
== END 2018-07-13 06:40 | disposition home or self-care (01) ==
LOC: ER 04:27
PROVIDERS: Emergency Medicine
DX: R07.9 Chest pain, unspecified (principal); E11.9 Type 2 diabetes mellitus without complications; I10 Essential (primary) hypertension; E78.5 Hyperlipidemia, unspecified; Z82.49 Family history of ischemic heart disease and other diseases of the circulatory system; Z95.1 Presence of aortocoronary bypass graft; Z87.891 Personal history of nicotine dependence

== ENCOUNTER 2018-07-16 05:27 | Emergency (ER) | payer OTHER ==
[~2018-07-16] VITALS: Ht 170.2 cm; Wt 86.2 kg
--- NOTE | ~2018-07-16 | EKG ---
[place] [address] [facility] [place] [address] ELECTROCARDIOGRAM REPORT Name: MARY COLÓN Room #: REG [place]#: [id number] Admission: 07/16/18 Attend Phys: Discharge: Date of : 61 Report #: [id number] THIS REPORT FOR: //name// [facility] ED Test Date: 2018-07-16 Test Time: 07:01:06 Pat Name: MARY COLÓN Department: Room: Gender: Vascular Surgery Physician: PROSPER : 1965 Requested By: Ermelinda Meier Order Number: [id number] MD: Moe Amador Measurements Intervals [place] Rate: 68 P: 10 [place]: 137 QRS: 11 QRSD: 98 T: 100 QT: 396 QTc: 422 Interpretive Statements Sinus rhythm Borderline repolarization abnormality Compared to ECG 07/13/2018 04:32:02 No significant changes Electronically Signed On 07-16-2018 8:12:25 MATERIALS RESEARCH ENGINEER by Moe Amador [email or web address] <ELECTRONICALLY SIGNED> By: Moe Amador MD, [facility] 07/16/18 0812 0701 0701 Moe Amador MD, FACC /EPI
[2018-07-16] MEDS ORDERED: ASPIR 8181 MG PO (05:38)
[2018-07-16 07:05] LABS: ABSOLUTE NEUTROPHILS 3.1 thou/uL (1.4-8.2); BASOPHILS 1.2 % (0.0-2.0); EOSINOPHILS 5.9 % (0.0-3.0); HEMATOCRIT 37.7 % (42.0-52.0); HEMOGLOBIN 13.4 gm/dL (14.0-18.0); LYMPHOCYTES 35.4 % (24.0-44.0); MCH 29.1 pg (26.0-34.0); MCHC 35.6 g/dL (28.0-37.0); MCV 81.7 fL (80.0-100.0); MONOCYTES 11.1 % (1.0-8.0); PLATELET COUNT 233 thou/uL (150-400); POLYS 46.4 % (36.0-66.0); RBC 4.61 mil/uL (4.50-6.00); RDW 13.7 % (10.5-14.5); WBC 6.6 thou/uL (4.0-11.0)
[2018-07-16 07:06] LABS: ANION GAP 14 mmol/L (7-16); BUN 20 mg/dL (7-18); CALCIUM 9.1 mg/dL (8.5-10.1); CHLORIDE 101 mmol/L (98-107); CO2 23 mmol/L (21-32); CREATININE 1.1 mg/dL (0.7-1.3); GLUCOSE 249 mg/dL (74-106); POTASSIUM 3.9 mmol/L (3.5-5.1); SODIUM 138 mmol/L (136-145)
[2018-07-16 07:15] LABS: TROPONIN-I <0.06 ng/mL (<0.06)
[2018-07-16 07:35] LABS: URINE BILIRUBIN NEGATIVE (Negative); URINE BLOOD NEGATIVE (Negative); URINE CLARITY CLEAR; URINE COLOR YELLOW; URINE GLUCOSE-RANDOM* NEGATIVE (Negative); URINE KETONES NEGATIVE (Negative); URINE LEUKOCYTES-REFLEX NEGATIVE (Negative); URINE NITRITE-REFLEX NEGATIVE (Negative); URINE PROTEIN (DIPSTICK) NEGATIVE (Negative); URINE UROBILINOGEN 0.2 E.U./dl (0.2-1.0)
[2018-07-16 10:02] VITALS: BP 145/95
== END 2018-07-16 10:04 | disposition home or self-care (01) ==
LOC: ER 05:27
PROVIDERS: Student in an Organized Health Care Education/Training Program
DX: I65.22 Occlusion and stenosis of left carotid artery (principal); H53.8 Other visual disturbances; E11.9 Type 2 diabetes mellitus without complications; I10 Essential (primary) hypertension; E78.5 Hyperlipidemia, unspecified; Z87.891 Personal history of nicotine dependence; Z95.5 Presence of coronary angioplasty implant and graft

== ENCOUNTER 2018-08-09 17:24 | Inpatient (IN) | payer OTHER ==
[~2018-08-09] VITALS: Ht 170.2 cm; Wt 90.3 kg
--- NOTE | ~2018-08-09 | HC ---
[facility] [place] [address] CONSULTATION Name: MARY COLÓN Room #: [facility]-P [facility] IN M.R.#: [id number] Admission: 08/09/18 Attend Phys: Jaja Adames MD Discharge: 08/11/18 Date of : 61 Report #: [id number] THIS REPORT FOR: //name// CC: FAM unknown Jaja Adames DATE OF SERVICE: 08/10/2018 IDENTIFYING INFORMATION: A 52-year-old male. HISTORY OF PRESENT ILLNESS: The patient has some concerns about anxiety. The patient notes anxiety has cleared up significantly this year. There has been a lot of loss. His sfqypgi-ps-xox suddenly of a heart attack, his 's nephew was killed and there have been a number of family friends who have passed too. Some of them by suicide. The patient denies that he is severely depressed, but all of these thoughts and stresses have weighed upon him. He notes that he is susceptible to anxiety and over thinking things. He is not hopeless or helpless. There has been perhaps a little bit of social withdrawal. PAST PSYCHIATRIC HISTORY: The patient has never seen a psychiatrist or therapist before. He has not been on psychotropic medications before. He does mention that he is 20 years sober from alcohol and over [address] He seems pretty comfortable with his sobriety. FAMILY HISTORY: No significant family history of depression or anxiety. ALLERGIES: No known medication allergies. PAST MEDICAL HISTORY: The patient has history of cardiac bypass, also history of hypertension. His current primary care physician is at [facility]. SOCIAL HISTORY: He has been for number of years. There are 4 children and approximately 14 grandchildren. He notes some of them are perhaps technically not biological grandchildren, but people who have been "adopted" over the years. As mentioned above, over 10 years sober from drugs and over 20 years sober from alcohol. He has been working at the [employer] for about 5 years. 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 He notes that he enjoyed the physical nature of the job as well as the technical aspects given the elaborate, unusual and very precise nature of the lutheran in [facility]. ASSETS: Supportive family, intelligent and motivated for treatment. LIABILITIES: Higher level of stress and some chronic, though currently stable [facility] [address] [place] [address] CONSULTATION Name: MARY COLÓN Room #: 211-P [facility] IN M.R.#: [id number] Admission: 08/09/18 Attend Phys: Jaja Adames MD Discharge: 08/11/18 Date of : 61 Report #: [id number] medical issues. MENTAL STATUS EXAM: male, casually dressed, stable mood, slightly anxious, well groomed, good hygiene. Normal rate and rhythm. Speech is articulate. No suicidal ideation, no homicidal ideation, no hallucinations, no delusions. Insight and judgment fair. DIAGNOSES: Generalized anxiety disorder, adjustment disorder with depressed mood. RECOMMENDATIONS: We will start buspirone at 5 mg 3 times a day with meals. I do not feel he is clinically depressed at this time. He does not represent any acute risk to self or others. We did encourage use of music, exercise, laughter and other things that can be used to counter anxiety and negative thinking. He is welcome to follow up with me in the outpatient office on this campus if he desires. <ELECTRONICALLY SIGNED> By: Vitor Strange MD 08/13/18 1526 1622 0121 Vitor Strange MD /nt
--- NOTE | ~2018-08-09 | CATHLAB ---
[facility] [address] [place] [address] INVASIVE PROCEDURE REPORT Name: MARY COLÓN Room #: 211-P [facility] IN .R.#: [id number] Admission: 08/09/18 Attend Phys: Jaja Adames MD Discharge: Date of : 61 Date of Service: 08/10/18 1419 Report #: [id number] THIS REPORT FOR: //name// APPROVED REPORT Study performed: 08/10/2018 11:06:07 Patient Details Patient Status: In-Patient Room #: The patient is a 52 year-old male Event Personnel Joel Rowan Commercial Baker Helper, Albaro Milan RN RN, Markell Tovar Partnoy, Nancy RTR, GUIDANCE SERVICES COORDINATOR Monitor Procedures Performed Left Heart Cath Coronaries, Bypass Grafts [id number] LHCCORCABG Indication Dyspnea, Unstable angina , Chest pain Risk Factors Hypercholesterolemia, Coronary Artery DiseaseHypertension Previous Procedures/Diagnoses Previous CABGPrevious PCI Procedure Narrative The Right Groin^ was infiltrated with 1% Lidocaine subcutaneous anesthesia. A PINNACLE 4FR Sheath #[id number] sheath was inserted into the RFA^. Coronary angiography was performed using coronary diagnostic catheters. The right coronary system was accessed and visualized with a JR4 catheter. The left coronary system was accessed and visualized with a JL4 catheter. The left ventricle was accessed and visualized with a PIGTAIL catheter. Left ventricular/Aortic Valve gradient assessed via catheter pullback. Hemostasis was obtained with manual pressure following sheath removal without any complications. There was no hematoma. Intraoperative Conscious Sedation Sedation start time: 12.31 Case end Time: 13.06 Fentanyl 25 mcg Versed 1.5 mg [facility] [address] [place] [address] INVASIVE PROCEDURE REPORT Name: ELDONMARYJORGE MOORE Room #: 211-P [facility] IN ..#: [id number] Admission: 08/09/18 Attend Phys: Jaja Adames MD Discharge: Date of : 61 Date of Service: 08/10/18 1419 Report #: [id number] Fluoro Time: 574.00 minutes Dose: DAP 4226.44 cGycm2 574 mGy Contrast Type and Amount: Omnipaque 60 ml Coronary Angiography The patient's coronary anatomy is right dominant. Diagnostic Cath Left Main There is a moderate stenosis at the distal segment, 40-50%. LAD There is a total occlusion of the LAD after the takeoff of the first diagonal artery. There is a patent SOLANO graft with an end-to-side anastomosis to the mid LAD. After the anastomosis, there is both retrograde and anterograde flow down the LAD. Diagonal 1 Small-caliber vessel with moderate disease in the proximal segment. OM1 This is a patent vessel with a moderate stenosis in the mid segment, 50%. OM2 There is a patent SVG with an end-to-side anastomosis to the second OM vessel. There is mild to moderate disease in the proximal and mid segments of the vein graft, 30-40%. Right Coronary There is a stent in the midsegment, patent. There is mild disease proximally, 20%. R PDA This is a patent vessel, with no flow-limiting lesions. Ramus This is a patent vessel with mild disease in the mid segment. Left Ventriculography Left Ventriculography was not performed. An LVEDP was measured and there is no gradient across the outflow tract. Conclusion 1. Patent stent in the RCA. 2. Patent SOLANO graft to the LAD. 3. Patent SVG to OM 2. 4. Moderate disease in the distal left main, first diagonal artery and OM1. 5. Recommend aggressive risk factor management. <ELECTRONICALLY SIGNED> By: Joel Rowan MD 08/10/18 1419 1419 1419 Joel Rowan MD /INF
--- NOTE | ~2018-08-09 | 2DMMODE ---
[facility] [address] [place] [address] 2 D/M-MODE ECHOCARDIOGRAM Name: MARY COLÓN Room #: 211-P ADM IN M.R.#: [id number] Admission: 08/09/18 Attend Phys: Jaja Adames MD Discharge: Date of : 61 Date of Service: 08/10/18 1125 Report #: [id number] THIS REPORT FOR: //name// APPROVED REPORT Study performed: 08/10/2018 10:33:43 EXAM: Comprehensive 2D, Doppler, and color-flow Echocardiogram Patient Location: Echo lab Room #: [facility] Status: routine BSA: 2.02 HR: 73 bpm BP: 170/92 mmHg Rhythm: NSR Other Information Study Quality: Good Indications Diabetes CAD Chest Pain Hypertension/HDD 2D Dimensions RVDd: 37.15 mm IVSd: 13.23 (7-11mm) LVOT Diam: 24.38 (18-24mm) LVDd: 47.51 mm PWd: 8.83 (7-11mm) Ascending Ao: 32.65 (22-36mm) LVDs: 35.13 (25-40mm) Aortic Root: 31.47 mm IVC: 14.00 mm Volumes Left Atrial Volume (Systole) Single Plane 4CH: 39.48 mL Single Plane 2CH: 61.53 mL LA ESV Index: 28.00 mL/m2 Aortic Valve AoV Peak Alf.: 1.00 m/s AO Peak Gr.: 3.99 mmHg LVOT Max P.59 mmHg LVOT Max V: 0.80 m/s SHUKRI Vmax: 3.76 cm2 Mitral Valve [facility] [address] [place] [address] 2 D/M-MODE ECHOCARDIOGRAM Name: MARY COLÓNNE Room #: 211-P [facility] IN ..#: [id number] Admission: 08/09/18 Attend Phys: Jaja Adames MD Discharge: Date of : 61 Date of Service: 08/10/18 1125 Report #: [id number] E/A Ratio: 1.1 MV Decel. Time: 279.63 ms MV E Max Alf.: 0.63 m/s MV A Alf.: 0.55 m/s MV PHT: 81.09 ms IVRT: 96.89 ms Pulmonary Valve PV Peak Alf.: 0.82 m/s PV Peak Gr.: 2.66 mmHg Pulmonary Vein P Vein S: 0.39 m/s P Vein A: 0.23 m/s P Vein D: 0.51 m/s P Vein A Dur.: 124.6 msec P Vein S/D Ratio: 0.76 Tricuspid Valve TR Peak Alf.: 2.23 m/s TR Peak Gr.: 19.97 mmHg PA Pressure: 25.00 mmHg Left Ventricle The left ventricle is normal size. There is normal LV segmental wall motion. There is normal left ventricular wall thickness. The left ventricular systolic function is normal. The left ventricular ejection fraction is within the normal range. LVEF is 55-60%. The left ventricular diastolic function is normal. Right Ventricle The right ventricle is normal size. The right ventricular systolic function is normal. Atria The left atrium size is normal. The right atrium size is normal. Aortic Valve The aortic valve is normal in structure. No aortic regurgitation is present. There is no aortic valvular stenosis. Mitral Valve The mitral valve is normal in structure. Trace to mild mitral regurgitation. No evidence of mitral valve stenosis. Tricuspid Valve The tricuspid valve is normal in structure. There is trace tricuspid regurgitation. Estimated PAP 25 mmHg. There is no pulmonary [address] [address] 2 D/M-MODE ECHOCARDIOGRAM Name: ELDONMARY TERESA Room #: 211-P [facility] IN .R.#: [id number] Admission: 08/09/18 Attend Phys: Jaja Adames MD Discharge: Date of : 61 Date of Service: 08/10/18 1125 Report #: [id number] hypertension. Pulmonic Valve The pulmonary valve is normal in structure. There is no pulmonic valvular regurgitation. Great Vessels The aortic root is normal in size. IVC is normal in size and collapses >50% with inspiration. Pericardium There is no pericardial effusion. <Conclusion> The left ventricle is normal size. LVEF is 55-60%. The aortic valve is normal in structure. Trace to mild mitral regurgitation. The tricuspid valve is normal in structure. There is trace tricuspid regurgitation. Estimated PAP 25 mmHg. There is no pulmonary hypertension. The pulmonary valve is normal in structure. There is no pericardial effusion. <ELECTRONICALLY SIGNED> By: Zacarias Prince MD 08/10/18 1125 112 Zacarias Prince MD /INF
--- NOTE | ~2018-08-09 | EKG ---
[address] [address] ELECTROCARDIOGRAM REPORT Name: ELDONMARYJORGE MOORE Room #: 211-P ADM IN M.R.#: [id number] Admission: 08/09/18 Attend Phys: Jaja Adames MD Discharge: Date of : 61 Report #: [id number] THIS REPORT FOR: //name// [facility] ED Test Date: 2018-08-09 Test Time: 18:30:15 Pat Name: MARY COLÓN Department: Room: 211 Gender: M Endoscopy Specialty Technician: TSTORCK : 1965 Requested By: Rashida Vance Order Number: [id number] MD: Jose Aquino Measurements Intervals [place] Rate: 80 P: 23 AK: 129 QRS: 34 QRSD: 94 T: 88 QT: 383 QTc: 442 Interpretive Statements Sinus rhythm Minimal ST elevation, inferior leads, present on prior EKG Compared to ECG 07/16/2018 07:01:06 Electronically Signed On 08-10-2018 8:01:56 RIPSAW MATCHER by Jose Aquino [email or web address] <ELECTRONICALLY SIGNED> By: Jose Aquino MD 08/10/18 0801 29 29 Jose Aquino MD /AILYN
[~2018-08-09 17:24] MED LIST changes: +ASPIR 8181 MG PO; -GLUCOPHAGE XR500 MG PO; +METFORMIN HCL500 MG PO
[2018-08-09 17:25] VITALS: BP 173/100
[2018-08-09 18:45] LABS: ABSOLUTE NEUTROPHILS 3.5 thou/uL (1.4-8.2); BASOPHILS 1.8 % (0.0-2.0); EOSINOPHILS 4.8 % (0.0-3.0); HEMATOCRIT 37.6 % (42.0-52.0); HEMOGLOBIN 13.4 gm/dL (14.0-18.0); LYMPHOCYTES 35.1 % (24.0-44.0); MCH 29.2 pg (26.0-34.0); MCHC 35.7 g/dL (28.0-37.0); MCV 81.6 fL (80.0-100.0); MONOCYTES 10.5 % (1.0-8.0); PLATELET COUNT 264 thou/uL (150-400); POLYS 47.8 % (36.0-66.0); RBC 4.61 mil/uL (4.50-6.00); RDW 13.3 % (10.5-14.5); WBC 7.4 thou/uL (4.0-11.0)
[2018-08-09 19:00] LABS: ANION GAP 10 mmol/L (7-16); BUN 19 mg/dL (7-18); CALCIUM 9.7 mg/dL (8.5-10.1); CHLORIDE 104 mmol/L (98-107); CO2 24 mmol/L (21-32); GLUCOSE 256 mg/dL (74-106); POTASSIUM 3.8 mmol/L (3.5-5.1); SODIUM 138 mmol/L (136-145)
[2018-08-09 19:05] LABS: ALBUMIN 3.6 g/dL (3.4-5.0); LIPASE 190 U/L (73-393); SGOT 28 U/L (15-37); SGPT 47 U/L (30-65); TOTAL BILIRUBIN 0.3 mg/dL (<0.1-1.0); TOTAL PROTEIN 7.2 g/dL (6.4-8.2); TROPONIN-I <0.06 ng/mL (<0.06)
[2018-08-09 19:24] LABS: APTT 25.5 Seconds (24.5-32.8); D-DIMER 0.35 ug/mLFEU (0.19-0.50); INR 1.1; PROTIME 11.4 Seconds (9.3-11.4)
[2018-08-09 20:20] VITALS: BP 159/84
[2018-08-09 20:37] VITALS: BP 161/87
[2018-08-09 21:28] VITALS: BP 163/83
[2018-08-10] VITALS (13 sets, daily range): BP systolic 121–173; BP diastolic 70–97
[2018-08-10 12:21] LABS: CHOLESTEROL 145 mg/dL (<200); HDL CHOLESTEROL 42 mg/dL (>40); LDL CHOLESTEROL 74 mg/dL (<100); TC:HDL 3.5 Ratio (Not establshd); TRIGLYCERIDE 149 mg/dL (<150); VLDL 30 mg/dL (<40)
[2018-08-11 00:22] LABS: HEMATOCRIT 37.1 % (42.0-52.0); HEMOGLOBIN 13.1 gm/dL (14.0-18.0); MCH 29.2 pg (26.0-34.0); MCHC 35.4 g/dL (28.0-37.0); MCV 82.6 fL (80.0-100.0); RBC 4.5 mil/uL (4.50-6.00); RDW 13.5 % (10.5-14.5); WBC 7.3 thou/uL (4.0-11.0)
[2018-08-11 00:39] LABS: ANION GAP 8 mmol/L (7-16); BUN 14 mg/dL (7-18); CALCIUM 8.8 mg/dL (8.5-10.1); CHLORIDE 108 mmol/L (98-107); CO2 24 mmol/L (21-32); CREATININE 0.9 mg/dL (0.7-1.3); GLUCOSE 138 mg/dL (74-106); POTASSIUM 3.6 mmol/L (3.5-5.1); SODIUM 140 mmol/L (136-145); TROPONIN-I <0.06 ng/mL (<0.06)
[2018-08-11 01:17] VITALS: BP 139/80
[2018-08-11 04:54] VITALS: BP 156/81
[2018-08-11 08:23] VITALS: BP 111/93
[2018-08-11] MEDS ORDERED: AMLODIPINE BESYL5 M1 PO (09:00)
[2018-08-11] MEDS ORDERED: BUSPIRONE HCL5 MG PO (09:00)
[2018-08-11 10:26] VITALS: BP 111/93
== END 2018-08-11 11:05 | disposition home or self-care (01) | DRG 287 ==
LOC: ER 17:24 → EROBS 19:42 → 2N 19:42
PROVIDERS: Internal Medicine Cardiovascular Disease; Nurse Practitioner Acute Care; Nurse Practitioner Adult Health; Physician Assistant
PROC: 4A023N7 Measurement of Cardiac Sampling and Pressure, Left Heart, Percutaneous Approach (ICD-10-PCS; principal; 2018-08-10)
PROC: B2111ZZ Fluoroscopy of Multiple Coronary Arteries using Low Osmolar Contrast (ICD-10-PCS; principal; 2018-08-10)
PROC: B2181ZZ Fluoroscopy of Left Internal Mammary Bypass Graft using Low Osmolar Contrast (ICD-10-PCS; principal; 2018-08-10)
PROC: B21F1ZZ Fluoroscopy of Other Bypass Graft using Low Osmolar Contrast (ICD-10-PCS; principal; 2018-08-10)
DX: I16.0 Hypertensive urgency (principal); E11.9 Type 2 diabetes mellitus without complications; I10 Essential (primary) hypertension; E78.5 Hyperlipidemia, unspecified; F41.1 Generalized anxiety disorder; F43.21 Adjustment disorder with depressed mood; I70.1 Atherosclerosis of renal artery; I25.10 Atherosclerotic heart disease of native coronary artery without angina pectoris; E78.00 Pure hypercholesterolemia, unspecified; I25.2 Old myocardial infarction; Z95.1 Presence of aortocoronary bypass graft; Z95.5 Presence of coronary angioplasty implant and graft; Z87.891 Personal history of nicotine dependence; Z82.49 Family history of ischemic heart disease and other diseases of the circulatory system; Z79.899 Other long term (current) drug therapy; Z83.3 Family history of diabetes mellitus
CPT/HCPCS: 10081

== ENCOUNTER 2018-08-13 06:08 | Emergency (ER) | payer OTHER ==
[~2018-08-13] VITALS: Ht 170.2 cm; Wt 86.2 kg
[~2018-08-13 06:08] MED LIST changes: +AMLODIPINE BESYL5 M1 PO; +BUSPIRONE HCL5 MG PO
[2018-08-13 07:37] VITALS: BP 137/89
== END 2018-08-13 07:46 | disposition home or self-care (01) ==
LOC: ER 06:08
DX: S30.1XXA Contusion of abdominal wall, initial encounter (principal); Z87.891 Personal history of nicotine dependence; E11.9 Type 2 diabetes mellitus without complications; I10 Essential (primary) hypertension; E78.5 Hyperlipidemia, unspecified; Z95.5 Presence of coronary angioplasty implant and graft; X58.XXXA Exposure to other specified factors, initial encounter; Y92.89 Other specified places as the place of occurrence of the external cause; Y93.89 Activity, other specified; Y99.8 Other external cause status

== ENCOUNTER 2018-09-13 21:15 | Emergency (ER) | payer OTHER ==
[~2018-09-13] VITALS: Ht 170.2 cm; Wt 86.2 kg
[2018-09-13 21:55] LABS: HEMATOCRIT 38.8 % (42.0-52.0); HEMOGLOBIN 13.6 gm/dL (14.0-18.0); MCH 28.6 pg (26.0-34.0); MCHC 34.9 g/dL (28.0-37.0); MCV 81.8 fL (80.0-100.0); PLATELET COUNT 233 thou/uL (150-400); RBC 4.74 mil/uL (4.50-6.00)
[2018-09-13 22:00] LABS: URINE CLARITY CLEAR; URINE COLOR YELLOW; URINE GLUCOSE-RANDOM* 2+ (Negative); URINE KETONES TRACE (Negative); URINE PROTEIN (DIPSTICK) NEGATIVE (Negative)
[2018-09-13 22:01] LABS: URINE BILIRUBIN NEGATIVE (Negative); URINE BLOOD NEGATIVE (Negative); URINE LEUKOCYTES-REFLEX NEGATIVE (Negative); URINE NITRITE-REFLEX NEGATIVE (Negative)
[2018-09-13 22:03] LABS: CALCIUM 9.1 mg/dL (8.5-10.1); CREATININE 1.1 mg/dL (0.7-1.3); POTASSIUM 3.9 mmol/L (3.5-5.1)
[2018-09-13 22:09] LABS: ALBUMIN 3.4 g/dL (3.4-5.0); TOTAL BILIRUBIN 0.3 mg/dL (<0.1-1.0); TOTAL PROTEIN 6.9 g/dL (6.4-8.2)
[2018-09-13 22:40] LABS: ABSOLUTE NEUTROPHILS 1.9 thou/uL (1.4-8.2); ATYPICAL LYMPHS 9 %
[2018-09-13] MEDS ORDERED: NORCO 5-325 TA1 EACH PO (23:20)
[2018-09-13] MEDS ORDERED: ONDANSETRON HCL4 M2 PO (23:20)
[2018-09-13 23:30] VITALS: BP 182/107
== END 2018-09-13 23:31 | disposition home or self-care (01) ==
LOC: ER 21:15
PROVIDERS: Nurse Practitioner Family
DX: K85.90 Acute pancreatitis without necrosis or infection, unspecified (principal); E11.9 Type 2 diabetes mellitus without complications; I10 Essential (primary) hypertension; E78.5 Hyperlipidemia, unspecified; Z95.5 Presence of coronary angioplasty implant and graft; Z87.891 Personal history of nicotine dependence

== ENCOUNTER 2018-09-24 21:58 | Emergency (ER) | payer OTHER ==
[~2018-09-24] VITALS: Ht 170.2 cm; Wt 86.2 kg
[2018-09-24 23:56] LABS: HEMATOCRIT 40.2 % (42.0-52.0); HEMOGLOBIN 13.9 gm/dL (14.0-18.0); MCHC 34.5 g/dL (28.0-37.0); MCV 81.3 fL (80.0-100.0); PLATELET COUNT 262 thou/uL (150-400); RBC 4.95 mil/uL (4.50-6.00); RDW 13.3 % (10.5-14.5); WBC 7.6 thou/uL (4.0-11.0)
[2018-09-25 00:06] LABS: ANION GAP 12 mmol/L (7-16); BUN 25 mg/dL (7-18); CALCIUM 9.4 mg/dL (8.5-10.1); CHLORIDE 99 mmol/L (98-107); CO2 24 mmol/L (21-32); CREATININE 1.2 mg/dL (0.7-1.3); GLUCOSE 246 mg/dL (74-106); POTASSIUM 3.7 mmol/L (3.5-5.1); SODIUM 135 mmol/L (136-145)
[2018-09-25 00:14] LABS: ALBUMIN 3.5 g/dL (3.4-5.0); SGOT 27 U/L (15-37); SGPT 52 U/L (30-65); TOTAL BILIRUBIN 0.3 mg/dL (<0.1-1.0); TOTAL PROTEIN 7.2 g/dL (6.4-8.2); TROPONIN-I <0.06 ng/mL (<0.06)
[2018-09-25 00:35] LABS: PLATELET ESTIMATE NORMAL
[2018-09-25] MEDS ORDERED: ZOFRAN ODT4 MG PO (01:08)
[2018-09-25 01:21] VITALS: BP 148/63
--- NOTE | 2018-09-25 09:22 | EKG ---
[facility] [address] [place] [address] ELECTROCARDIOGRAM REPORT Name: MARY COLÓN [facility] [id number] Admission: 09/24/18 Attend Phys: Discharge: 09/25/18 Date of : 61 Report #: [id number] THIS REPORT FOR: //name// [facility] ED Test Date: 2018-09-24 Test Time: 22:06:19 Pat Name: MARY COLÓN Department: Room: Gender: M Sorority Mother: SILVERIO : 1965 Requested By: Volodymyr Fernandez Order Number: [id number] MD: Moe Amador Measurements Intervals [place] Rate: 86 P: 43 NM: 124 QRS: 45 QRSD: 90 T: 127 QT: 367 QTc: 439 Interpretive Statements Sinus rhythm Repol abnrm suggests ischemia, lateral leads Minimal ST elevation, inferior leads Compared to ECG 08/09/2018 18:30:[address] segment abnormality is more pronounced Electronically Signed On 09-25-2018 9:21:56 GEOPHYSICAL PARTY CHIEF by Moe Amador [email or web address] <ELECTRONICALLY SIGNED> By: Moe Amador MD, [facility] 09/25/18 0921 05 05 Moe Amador MD, [facility] /EPI
== END 2018-09-25 01:22 | disposition home or self-care (01) ==
LOC: ER 21:58
PROVIDERS: Emergency Medicine
DX: R11.2 Nausea with vomiting, unspecified (principal); R51 Headache; E11.9 Type 2 diabetes mellitus without complications; I10 Essential (primary) hypertension; E78.5 Hyperlipidemia, unspecified; Z95.5 Presence of coronary angioplasty implant and graft; Z87.891 Personal history of nicotine dependence

== ENCOUNTER 2018-09-30 11:20 | Emergency (ER) | payer OTHER ==
[~2018-09-30] VITALS: Ht 170.2 cm; Wt 86.2 kg
[2018-09-30 11:53] LABS: ABSOLUTE NEUTROPHILS 4.1 thou/uL (1.4-8.2); BASOPHILS 1.1 % (0.0-2.0); EOSINOPHILS 4.1 % (0.0-3.0); HEMATOCRIT 41.7 % (42.0-52.0); HEMOGLOBIN 14.3 gm/dL (14.0-18.0); LYMPHOCYTES 25.6 % (24.0-44.0); MCH 27.9 pg (26.0-34.0); MCHC 34.3 g/dL (28.0-37.0); MCV 81.3 fL (80.0-100.0); MONOCYTES 9.6 % (1.0-8.0); PLATELET COUNT 293 thou/uL (150-400); POLYS 59.6 % (36.0-66.0); RBC 5.12 mil/uL (4.50-6.00); RDW 13.2 % (10.5-14.5)
[2018-09-30 12:00] LABS: CALCIUM 9.3 mg/dL (8.5-10.1); CREATININE 1.3 mg/dL (0.7-1.3); POTASSIUM 3.7 mmol/L (3.5-5.1)
[2018-09-30 12:14] LABS: ALBUMIN 3.8 g/dL (3.4-5.0); TOTAL BILIRUBIN 0.5 mg/dL (<0.1-1.0); TOTAL PROTEIN 7.7 g/dL (6.4-8.2)
[2018-09-30 12:46] LABS: URINE BILIRUBIN NEGATIVE (Negative); URINE BLOOD NEGATIVE (Negative); URINE CLARITY CLEAR; URINE COLOR YELLOW; URINE GLUCOSE-RANDOM* 3+ (Negative); URINE KETONES NEGATIVE (Negative); URINE NITRITE-REFLEX NEGATIVE (Negative); URINE PROTEIN (DIPSTICK) NEGATIVE (Negative); URINE UROBILINOGEN 0.2 E.U./dl (0.2-1.0)
[2018-09-30 12:47] LABS: URINE LEUKOCYTES-REFLEX NEGATIVE (Negative)
[2018-09-30 13:00] LABS: AMP/METHAMP Negative (Negative); BARBITURATES Negative (Negative); BENZODIAZEPINES Negative (Negative); COCAINE Negative (Negative); METHADONE Negative (Negative); OPIATES Negative (Negative); PCP Negative (Negative)
[2018-09-30] MEDS ORDERED: LEVSIN0.125 MG PO (15:06)
[2018-09-30 15:23] VITALS: BP 142/78
== END 2018-09-30 15:25 | disposition home or self-care (01) ==
LOC: ER 11:20
PROVIDERS: Physician Assistant
DX: R10.31 Right lower quadrant pain (principal); R11.2 Nausea with vomiting, unspecified; I10 Essential (primary) hypertension; E11.9 Type 2 diabetes mellitus without complications; E78.5 Hyperlipidemia, unspecified; I25.2 Old myocardial infarction; Z95.1 Presence of aortocoronary bypass graft; Z87.891 Personal history of nicotine dependence

== ENCOUNTER 2018-10-07 13:34 | Emergency (ER) | payer OTHER ==
[~2018-10-07] VITALS: Ht 170.2 cm; Wt 86.2 kg
[~2018-10-07 13:34] MED LIST changes: +LEVSIN0.125 MG PO
[2018-10-07 14:04] LABS: ABSOLUTE NEUTROPHILS 4.5 thou/uL (1.4-8.2); BASOPHILS 1.5 % (0.0-2.0); EOSINOPHILS 3.5 % (0.0-3.0); HEMOGLOBIN 14.7 gm/dL (14.0-18.0); LYMPHOCYTES 25.4 % (24.0-44.0); MCH 27.6 pg (26.0-34.0); MCHC 34.2 g/dL (28.0-37.0); MCV 80.7 fL (80.0-100.0); MONOCYTES 9.3 % (1.0-8.0); PLATELET COUNT 317 thou/uL (150-400); POLYS 60.3 % (36.0-66.0); RBC 5.33 mil/uL (4.50-6.00); RDW 13.8 % (10.5-14.5); WBC 7.5 thou/uL (4.0-11.0)
[2018-10-07 14:11] LABS: CALCIUM 9.2 mg/dL (8.5-10.1); CREATININE 1.2 mg/dL (0.7-1.3); POTASSIUM 4.2 mmol/L (3.5-5.1)
[2018-10-07 14:18] LABS: ALBUMIN 3.8 g/dL (3.4-5.0); TOTAL BILIRUBIN 0.4 mg/dL (<0.1-1.0); TOTAL PROTEIN 7.7 g/dL (6.4-8.2)
[2018-10-07 15:21] LABS: URINE CLARITY CLEAR; URINE COLOR YELLOW
[2018-10-07 15:22] LABS: URINE BILIRUBIN NEGATIVE (Negative); URINE BLOOD NEGATIVE (Negative); URINE GLUCOSE-RANDOM* 3+ (Negative); URINE KETONES NEGATIVE (Negative); URINE LEUKOCYTES-REFLEX NEGATIVE (Negative); URINE NITRITE-REFLEX NEGATIVE (Negative); URINE PROTEIN (DIPSTICK) NEGATIVE (Negative); URINE UROBILINOGEN 0.2 E.U./dl (0.2-1.0)
[2018-10-07] MEDS ORDERED: ZOFRAN ODT4 MG PO (17:36)
[2018-10-07] MEDS ORDERED: NORCO 5-325 TA1 EACH PO (17:36)
[2018-10-07 17:49] VITALS: BP 151/83
== END 2018-10-07 17:53 | disposition home or self-care (01) ==
LOC: ER 13:34
PROVIDERS: Emergency Medicine
DX: K81.9 Cholecystitis, unspecified (principal); E11.9 Type 2 diabetes mellitus without complications; I10 Essential (primary) hypertension; E78.5 Hyperlipidemia, unspecified; Z95.5 Presence of coronary angioplasty implant and graft; Z87.891 Personal history of nicotine dependence; Z95.1 Presence of aortocoronary bypass graft

== ENCOUNTER 2018-11-09 00:16 | Emergency (ER) | payer OTHER ==
[~2018-11-09] VITALS: Ht 170.2 cm; Wt 86.2 kg
[2018-11-09 01:10] LABS: ABSOLUTE NEUTROPHILS 4.4 thou/uL (1.4-8.2); BASOPHILS 0.8 % (0.0-2.0); EOSINOPHILS 5.1 % (0.0-3.0); HEMATOCRIT 37.6 % (42.0-52.0); HEMOGLOBIN 13.3 gm/dL (14.0-18.0); LYMPHOCYTES 13.4 % (24.0-44.0); MCH 27.7 pg (26.0-34.0); MCHC 35.3 g/dL (28.0-37.0); MCV 78.5 fL (80.0-100.0); MONOCYTES 10.4 % (1.0-8.0); PLATELET COUNT 242 thou/uL (150-400); POLYS 70.3 % (36.0-66.0); RBC 4.78 mil/uL (4.50-6.00); RDW 14.1 % (10.5-14.5); WBC 6.2 thou/uL (4.0-11.0)
[2018-11-09 01:17] LABS: ANION GAP 8 mmol/L (7-16); BUN 24 mg/dL (7-18); CALCIUM 8.4 mg/dL (8.5-10.1); CHLORIDE 96 mmol/L (98-107); CO2 25 mmol/L (21-32); CREATININE 1.1 mg/dL (0.7-1.3); GLUCOSE 405 mg/dL (74-106); POTASSIUM 3.3 mmol/L (3.5-5.1); SODIUM 129 mmol/L (136-145)
[2018-11-09 01:26] LABS: ALBUMIN 3.1 g/dL (3.4-5.0); LIPASE 170 U/L (73-393); SGOT 17 U/L (15-37); SGPT 34 U/L (30-65); TOTAL BILIRUBIN 0.6 mg/dL (<0.1-1.0); TOTAL PROTEIN 6.8 g/dL (6.4-8.2); TROPONIN-I <0.06 ng/mL (<0.06)
[2018-11-09 03:13] VITALS: BP 156/84
--- NOTE | 2018-11-09 12:05 | EKG ---
[place] [address] [facility] [place] [address] ELECTROCARDIOGRAM REPORT Name: MARY COLÓNNE Room #: DEP Rola#: [id number] ������������������ Admission: 11/09/18 ������������������ Attend Phys: Discharge: 11/09/18 ������������������ Date of : 61 Report #: [id number] ����������������������������������������������������������������� [id number] THIS REPORT FOR: //name// [facility] ED Test Date: 2018-11-09 Test Time: 00:41:51 Pat Name: MARY COLÓN Department: Room: Gender: Installation And Service Technician: [facility] : 1965 Requested By: Volodymyr Trejo Order Number: [id number] MD: Zacarias Prince Measurements Intervals [place] Rate: 90 P: 28 ID: 138 QRS: 36 QRSD: 100 T: 83 QT: 364 QTc: 446 Interpretive Statements Sinus rhythm Nonspecific ST-T wave changes Compared to ECG 09/24/2018 22:06:19 no significant changes Electronically Signed On 11-09-2018 12:05:23 RABBIT FANCIER by Zacarias Prince [email or web address] ��������������������������������������������� <ELECTRONICALLY SIGNED> ���������������������������������������� By: Zacarias Prince MD ��������������������������������������������� 11/09/18 1205 0041 0041 Zacarias Prince MD /AILYN
== END 2018-11-09 02:55 | disposition home or self-care (01) ==
LOC: ER 00:16
PROVIDERS: Emergency Medicine
DX: R11.2 Nausea with vomiting, unspecified (principal); R53.81 Other malaise; E11.9 Type 2 diabetes mellitus without complications; I10 Essential (primary) hypertension; E78.5 Hyperlipidemia, unspecified; Z95.5 Presence of coronary angioplasty implant and graft; Z87.891 Personal history of nicotine dependence

== ENCOUNTER 2018-12-18 05:50 | Emergency (ER) | payer OTHER ==
[~2018-12-18] VITALS: Ht 170.2 cm; Wt 88.5 kg
[2018-12-18 10:15] VITALS: BP 130/81
== END 2018-12-18 10:16 | disposition home or self-care (01) ==
LOC: ER 05:50
DX: H53.8 Other visual disturbances (principal); E11.9 Type 2 diabetes mellitus without complications; I10 Essential (primary) hypertension; E78.5 Hyperlipidemia, unspecified; Z87.891 Personal history of nicotine dependence; Z95.5 Presence of coronary angioplasty implant and graft

== ENCOUNTER 2019-01-20 15:42 | Emergency (ER) | payer OTHER ==
[~2019-01-20] VITALS: Ht 170.2 cm; Wt 88.5 kg
[2019-01-20 16:12] VITALS: BP 121/78
[2019-01-20] MEDS ORDERED: MOBIC7.5 MG PO (16:41)
== END 2019-01-20 16:12 | disposition home or self-care (01) ==
LOC: ER 15:42
DX: S80.02XA Contusion of left knee, initial encounter (principal); E11.9 Type 2 diabetes mellitus without complications; I25.2 Old myocardial infarction; I10 Essential (primary) hypertension; E78.5 Hyperlipidemia, unspecified; Z95.5 Presence of coronary angioplasty implant and graft; Z87.891 Personal history of nicotine dependence; W22.8XXA Striking against or struck by other objects, initial encounter; Y93.89 Activity, other specified; Y92.89 Other specified places as the place of occurrence of the external cause; Y99.8 Other external cause status

== ENCOUNTER 2019-01-21 21:43 | Emergency (ER) | payer OTHER ==
[~2019-01-21] VITALS: Ht 170.2 cm; Wt 86.2 kg
[~2019-01-21 21:43] MED LIST changes: +MOBIC7.5 MG PO
[2019-01-22 00:51] VITALS: BP 125/83
== END 2019-01-22 00:53 | disposition home or self-care (01) ==
LOC: ER 21:43
DX: G43.909 Migraine, unspecified, not intractable, without status migrainosus (principal); R05 Cough; R42 Dizziness and giddiness; E11.9 Type 2 diabetes mellitus without complications; I10 Essential (primary) hypertension; E78.5 Hyperlipidemia, unspecified; Z87.891 Personal history of nicotine dependence; Z95.5 Presence of coronary angioplasty implant and graft

== ENCOUNTER 2019-02-18 21:27 | Emergency (ER) | payer OTHER ==
[~2019-02-18] VITALS: Ht 170.2 cm; Wt 83.9 kg
[2019-02-18 23:29] VITALS: BP 105/70
== END 2019-02-18 23:30 | disposition home or self-care (01) ==
LOC: ER 21:27
DX: E11.65 Type 2 diabetes mellitus with hyperglycemia (principal); I25.2 Old myocardial infarction; I10 Essential (primary) hypertension; E78.5 Hyperlipidemia, unspecified; Z95.5 Presence of coronary angioplasty implant and graft; Z87.891 Personal history of nicotine dependence; Z79.899 Other long term (current) drug therapy; Z79.4 Long term (current) use of insulin

== ENCOUNTER 2019-02-27 18:54 | Emergency (ER) | payer OTHER ==
[~2019-02-27] VITALS: Ht 172.7 cm; Wt 83.9 kg
[2019-02-27] MEDS ORDERED: NOVOLIN 70100 UNIT/5 SUBQ (19:10)
[2019-02-27 19:39] LABS: ABSOLUTE NEUTROPHILS 3.6 thou/uL (1.4-8.2); BASOPHILS 1.3 % (0.0-2.0); EOSINOPHILS 4.8 % (0.0-3.0); HEMATOCRIT 35.1 % (42.0-52.0); HEMOGLOBIN 12.3 gm/dL (14.0-18.0); LYMPHOCYTES 33.2 % (24.0-44.0); MCH 28.9 pg (26.0-34.0); MCHC 35.1 g/dL (28.0-37.0); MCV 82.2 fL (80.0-100.0); MONOCYTES 11.6 % (1.0-8.0); PLATELET COUNT 276 thou/uL (150-400); POLYS 49.1 % (36.0-66.0); RBC 4.27 mil/uL (4.50-6.00); RDW 13.9 % (10.5-14.5); WBC 7.3 thou/uL (4.0-11.0)
[2019-02-27 19:45] LABS: CALCIUM 8.7 mg/dL (8.5-10.1); POTASSIUM 3.7 mmol/L (3.5-5.1)
[2019-02-27 19:46] LABS: MAGNESIUM 1.6 mg/dL (1.8-2.4)
[2019-02-27] MEDS ORDERED: ANTIVERT25 MG PO (20:41)
[2019-02-27 21:00] VITALS: BP 132/72
--- NOTE | 2019-02-28 08:24 | EKG ---
[place] [address] [place] [address] ELECTROCARDIOGRAM REPORT Name: MARY COLÓN Room #: DEP Rola#: [id number] ������������������ Admission: 02/27/19 ������������������ Attend Phys: Discharge: 02/27/19 ������������������ Date of : 61 Report #: [id number] ����������������������������������������������������������������� [id number] THIS REPORT FOR: //name// [facility] ED Test Date: 2019-02-27 Test Time: 19:30:23 Pat Name: MARY COLÓN Department: Room: Gender: Drug Abuse Counselor: AMARILYS : 1965 Requested By: Volodymyr Trejo Order Number: [id number] MD: Moe Amador Measurements Intervals [place] Rate: 80 P: 17 AR: 127 QRS: 34 QRSD: 92 T: 81 QT: 359 QTc: 415 Interpretive Statements Sinus rhythm No significant abnormality Compared to ECG 11/09/2018 00:41:51 No significant changes Electronically Signed On 02-28-2019 8:23:53 CDT by Moe Amador [email or web address] ��������������������������������������������� <ELECTRONICALLY SIGNED> ���������������������������������������� By: Moe Amador MD, [facility] ��������������������������������������������� 02/28/19 0823 193 29 Moe Amador MD, [facility] /EPI
== END 2019-02-27 21:00 | disposition home or self-care (01) ==
LOC: ER 18:54
PROVIDERS: Emergency Medicine
DX: R42 Dizziness and giddiness (principal); E11.9 Type 2 diabetes mellitus without complications; I10 Essential (primary) hypertension; E78.5 Hyperlipidemia, unspecified; Z95.5 Presence of coronary angioplasty implant and graft; Z87.891 Personal history of nicotine dependence; Z79.4 Long term (current) use of insulin

== ENCOUNTER 2019-03-03 21:50 | Emergency (ER) | payer OTHER ==
[~2019-03-03] VITALS: Ht 172.7 cm; Wt 83.9 kg
[~2019-03-03 21:50] MED LIST changes: +ANTIVERT25 MG PO; +NOVOLIN 70100 UNIT/5 SUBQ
[2019-03-03 22:33] LABS: ABSOLUTE NEUTROPHILS 5.3 thou/uL (1.4-8.2); BASOPHILS 1.2 % (0.0-2.0); EOSINOPHILS 3.7 % (0.0-3.0); HEMATOCRIT 37.8 % (42.0-52.0); HEMOGLOBIN 13.4 gm/dL (14.0-18.0); LYMPHOCYTES 31.4 % (24.0-44.0); MCHC 35.5 g/dL (28.0-37.0); MCV 81.7 fL (80.0-100.0); MONOCYTES 10.6 % (1.0-8.0); PLATELET COUNT 313 thou/uL (150-400); POLYS 53.1 % (36.0-66.0); RBC 4.62 mil/uL (4.50-6.00); RDW 14.2 % (10.5-14.5); WBC 10.1 thou/uL (4.0-11.0)
[2019-03-03 22:37] LABS: ANION GAP 17 mmol/L (7-16); BUN 29 mg/dL (7-18); CALCIUM 8.8 mg/dL (8.5-10.1); CHLORIDE 99 mmol/L (98-107); CO2 20 mmol/L (21-32); CREATININE 1.1 mg/dL (0.7-1.3); GLUCOSE 248 mg/dL (74-106); POTASSIUM 3.8 mmol/L (3.5-5.1); SODIUM 136 mmol/L (136-145)
[2019-03-03 22:46] LABS: TROPONIN-I <0.06 ng/mL (<0.06)
[2019-03-04 02:58] VITALS: BP 148/83
--- NOTE | 2019-03-04 09:53 | EKG ---
[place] [address] [facility] [place] [address] ELECTROCARDIOGRAM REPORT Name: MARY COLÓN [facility] [id number] ������������������ Admission: 03/03/19 ������������������ Attend Phys: Discharge: 03/04/19 ������������������ Date of : 61 Report #: [id number] ����������������������������������������������������������������� [id number] THIS REPORT FOR: //name// [facility] ED Test Date: 2019-03-03 Test Time: 21:57:15 Pat Name: MARY COLÓN Department: Room: Gender: Infectious Diseases Physician: Butch Lynn : 1965 Requested By: Ankush Rodríguez Order Number: [id number] MD: Moe Amador Measurements Intervals [place] Rate: 81 P: 7 CT: 117 QRS: 43 QRSD: 93 T: 95 QT: 352 QTc: 409 Interpretive Statements Sinus rhythm Borderline short CT interval ST elevation, inferior leads Compared to ECG 02/27/2019 19:30:23 No significant change was found Electronically Signed On 03-04-2019 9:52:48 CDT by Moe Amador [email or web address] ��������������������������������������������� <ELECTRONICALLY SIGNED> ���������������������������������������� By: Moe Amador MD, [facility] ��������������������������������������������� 03/04/19 0952 56 56 Moe Amador MD, [facility] /EPI
== END 2019-03-04 03:00 | disposition home or self-care (01) ==
LOC: ER 21:50
PROVIDERS: Emergency Medicine
DX: M54.6 Pain in thoracic spine (principal); E86.0 Dehydration; E11.9 Type 2 diabetes mellitus without complications; I10 Essential (primary) hypertension; E78.5 Hyperlipidemia, unspecified; Z95.5 Presence of coronary angioplasty implant and graft; Z79.4 Long term (current) use of insulin; Z87.891 Personal history of nicotine dependence

== ENCOUNTER 2019-04-08 17:55 | Emergency (ER) | payer OTHER ==
[~2019-04-08] VITALS: Ht 177.8 cm; Wt 83.9 kg
[2019-04-08 18:35] LABS: ABSOLUTE NEUTROPHILS 4.8 thou/uL (1.4-8.2); BASOPHILS 0.5 % (0.0-2.0); EOSINOPHILS 3.6 % (0.0-3.0); HEMATOCRIT 39.3 % (42.0-52.0); HEMOGLOBIN 13.8 gm/dL (14.0-18.0); LYMPHOCYTES 29.4 % (24.0-44.0); MCH 29.4 pg (26.0-34.0); MCHC 35.2 g/dL (28.0-37.0); MCV 83.7 fL (80.0-100.0); MONOCYTES 10.5 % (1.0-8.0); PLATELET COUNT 307 thou/uL (150-400); RBC 4.69 mil/uL (4.50-6.00); RDW 13.8 % (10.5-14.5); WBC 8.6 thou/uL (4.0-11.0)
[2019-04-08 18:58] LABS: ANION GAP 13 mmol/L (7-16); BUN 24 mg/dL (7-18); CALCIUM 9.8 mg/dL (8.5-10.1); CHLORIDE 93 mmol/L (98-107); CO2 23 mmol/L (21-32); CREATININE 1.1 mg/dL (0.7-1.3); POTASSIUM 4.4 mmol/L (3.5-5.1); SODIUM 129 mmol/L (136-145); TROPONIN-I <0.06 ng/mL (<0.06)
[2019-04-08 19:01] LABS: GLUCOSE 618 mg/dL (74-106)
[2019-04-08 22:55] VITALS: BP 143/88
--- NOTE | 2019-04-09 08:44 | EKG ---
[place] [address] [place] [address] ELECTROCARDIOGRAM REPORT Name: MARY COLÓN [facility]: [facility] [id number] ������������������ Admission: 04/08/19 ������������������ Attend Phys: Discharge: 04/08/19 ������������������ Date of : 61 Report #: [id number] ����������������������������������������������������������������� [id number] THIS REPORT FOR: //name// [facility] ED Test Date: 2019-04-08 Test Time: 18:03:13 Pat Name: MARY COLÓN Department: Room: Gender: Engine Research Engineer: aj : 1965 Requested By: Volodymyr Trejo Order Number: [id number] MD: Moe Amador Measurements Intervals [place] Rate: 83 P: 10 PA: 113 QRS: 36 QRSD: 97 T: 96 QT: 369 QTc: 434 Interpretive Statements Sinus rhythm Borderline short PA interval Nonspecific repol abnormality, lateral leads Minimal ST elevation, inferior leads Compared to ECG 03/03/2019 21:57:15 ST (T wave) deviation still present no significant change was found Electronically Signed On 04-09-2019 8:44:14 CDT by Moe Amador [email or web address] ��������������������������������������������� <ELECTRONICALLY SIGNED> ���������������������������������������� By: Moe Amador MD, [facility] ��������������������������������������������� 04/09/19 0844 1803 180 Moe Amador MD, [facility] /EPI
--- NOTE | 2019-04-09 08:45 | EKG ---
[place] [address] [place] [address] ELECTROCARDIOGRAM REPORT Name: MARY COLÓN Room #: DEP Rola#: [id number] ������������������ Admission: 04/08/19 ������������������ Attend Phys: Discharge: 04/08/19 ������������������ Date of : 61 Report #: [id number] ����������������������������������������������������������������� [id number] THIS REPORT FOR: //name// [facility] ED Test Date: 2019-04-08 Test Time: 18:32:01 Pat Name: MARY COLÓN Department: Room: Gender: Pinmaker: laurent : 1965 Requested By: Volodymyr Trejo Order Number: [id number] MD: Moe Amador Measurements Intervals [place] Rate: 85 P: 0 DC: 118 QRS: 34 QRSD: 91 T: 96 QT: 361 QTc: 430 Interpretive Statements Sinus rhythm Borderline short [place] interval Inferior ST segment elevation Nonspecific lateral ST and T wave abnormality Compared to ECG 03/03/2019 21:57:15 No significant change was found Electronically Signed On 04-09-2019 8:45:17 CDT by Moe Amador [email or web address] ��������������������������������������������� <ELECTRONICALLY SIGNED> ���������������������������������������� By: Moe Amador MD, [facility] ��������������������������������������������� 04/09/19 0845 31 31 Moe Amador MD, [facility] /EPI
--- NOTE | 2019-04-09 08:47 | EKG ---
[place] [address] [place] [address] ELECTROCARDIOGRAM REPORT Name: MARY OCLÓN [facility] [id number] ������������������ Admission: 04/08/19 ������������������ Attend Phys: Discharge: 04/08/19 ������������������ Date of : 61 Report #: [id number] ����������������������������������������������������������������� [id number] THIS REPORT FOR: //name// [facility] ED Test Date: 2019-04-08 Test Time: 19:06:05 Pat Name: MARY COLÓN Department: Room: Gender: Vest Busheler: [facility] : 1965 Requested By: Volodymyr Trejo Order Number: [id number] MD: Moe Amador Measurements Intervals [place] Rate: 81 P: 50 TX: 117 QRS: 64 QRSD: 90 T: 84 QT: 356 QTc: 414 Interpretive Statements Sinus rhythm Borderline short [place] interval Inferior ST segment elevation Nonspecific lateral ST and T wave abnormality Compared to ECG 03/03/2019 21:57:15 No significant change was found Electronically Signed On 04-09-2019 8:47:00 CDT by Moe Amador [email or web address] ��������������������������������������������� <ELECTRONICALLY SIGNED> ���������������������������������������� By: Moe Amador MD, [facility] ��������������������������������������������� 04/09/19 0847 05 05 Moe Amador MD, [facility] /EPI
== END 2019-04-08 22:25 | disposition home or self-care (01) ==
LOC: ER 17:55
PROVIDERS: Emergency Medicine
DX: E11.65 Type 2 diabetes mellitus with hyperglycemia (principal); R07.89 Other chest pain; I10 Essential (primary) hypertension; I25.2 Old myocardial infarction; E78.5 Hyperlipidemia, unspecified; Z95.1 Presence of aortocoronary bypass graft; Z95.2 Presence of prosthetic heart valve; Z79.4 Long term (current) use of insulin; Z87.891 Personal history of nicotine dependence

== ENCOUNTER 2019-04-10 17:15 | Emergency (ER) | payer OTHER ==
[~2019-04-10] VITALS: Ht 170.2 cm; Wt 79.4 kg
[2019-04-10 17:37] LABS: ABSOLUTE NEUTROPHILS 4.3 thou/uL (1.4-8.2); BASOPHILS 1.4 % (0.0-2.0); EOSINOPHILS 3.5 % (0.0-3.0); HEMATOCRIT 40.3 % (42.0-52.0); HEMOGLOBIN 14.1 gm/dL (14.0-18.0); LYMPHOCYTES 27.4 % (24.0-44.0); MCH 29.1 pg (26.0-34.0); MCV 83.3 fL (80.0-100.0); MONOCYTES 9.3 % (1.0-8.0); PLATELET COUNT 313 thou/uL (150-400); POLYS 58.4 % (36.0-66.0); RBC 4.83 mil/uL (4.50-6.00); RDW 14.1 % (10.5-14.5); WBC 7.3 thou/uL (4.0-11.0)
[2019-04-10 17:54] LABS: ANION GAP 12 mmol/L (7-16); BUN 16 mg/dL (7-18); CALCIUM 9.1 mg/dL (8.5-10.1); CHLORIDE 95 mmol/L (98-107); CO2 22 mmol/L (21-32); CREATININE 1.5 mg/dL (0.7-1.3); POTASSIUM 4.3 mmol/L (3.5-5.1); SODIUM 129 mmol/L (136-145); TROPONIN-I <0.06 ng/mL (<0.06)
[2019-04-10 17:56] LABS: GLUCOSE 528 mg/dL (74-106)
[2019-04-10 18:36] LABS: URINE BILIRUBIN NEGATIVE (Negative); URINE BLOOD NEGATIVE (Negative); URINE CLARITY CLEAR; URINE COLOR YELLOW; URINE GLUCOSE-RANDOM* 3+ (Negative); URINE KETONES NEGATIVE (Negative); URINE LEUKOCYTES-REFLEX NEGATIVE (Negative); URINE NITRITE-REFLEX NEGATIVE (Negative); URINE PROTEIN (DIPSTICK) NEGATIVE (Negative); URINE SPECIFIC GRAVITY <= 1.005 (1.005-1.035); URINE UROBILINOGEN 0.2 E.U./dl (0.2-1.0)
[2019-04-10 20:16] VITALS: BP 136/85
--- NOTE | 2019-04-11 08:11 | EKG ---
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 And Boiler Covers Supervisor: [place] : 1965 Requested By: Ankush Rodríguez Order Number: [id number] MD: Moe Amador Measurements Intervals [place] Rate: 85 P: 29 FL: 113 QRS: 37 QRSD: 86 T: 103 QT: 356 QTc: 424 Interpretive Statements Sinus rhythm Borderline short [place] interval Nonspecific repol abnormality, lateral leads ST elevation, inferior leads Compared to ECG 04/08/2019 19:06:05 No significant change was found Electronically Signed On 04-11-2019 8:11:32 CDT by Moe Amador [email or web address] ��������������������������������������������� <ELECTRONICALLY SIGNED> ���������������������������������������� By: Moe Amador MD, [facility] ��������������������������������������������� 04/11/19 0811 1714 171 Moe Amador MD, [facility] /EPI
== END 2019-04-10 20:19 | disposition home or self-care (01) ==
LOC: ER 17:15
PROVIDERS: Emergency Medicine
DX: R07.89 Other chest pain (principal); E11.9 Type 2 diabetes mellitus without complications; I25.2 Old myocardial infarction; I10 Essential (primary) hypertension; F17.210 Nicotine dependence, cigarettes, uncomplicated; Z79.899 Other long term (current) drug therapy; Z79.82 Long term (current) use of aspirin; Z79.4 Long term (current) use of insulin; Z95.5 Presence of coronary angioplasty implant and graft

== ENCOUNTER 2019-06-23 13:22 | Emergency (ER) | payer OTHER ==
[~2019-06-23] VITALS: Ht 170.2 cm; Wt 81.7 kg
[2019-06-23 14:16] VITALS: BP 124/74
--- NOTE | 2019-06-24 08:15 | EKG ---
[place] [address] [facility] [place] [address] ELECTROCARDIOGRAM REPORT Name: MARY COLÓN Room #: DEP [facility] [id number] Admission: 06/23/19 Attend Phys: Discharge: 06/23/19 Date of : 61 Report #: [id number] THIS REPORT FOR: //name// [facility] ED Test Date: 2019-06-23 Test Time: 13:38:30 Pat Name: MARY COLÓN Department: Room: Gender: M Organizational Consultant: SILVERIO : 1965 Requested By: Ana María Deshpande Order Number: [id number] MD: Moe Amador Measurements Intervals [place] Rate: 68 P: 25 [place]: 131 QRS: 38 QRSD: 92 T: 85 QT: 383 QTc: 408 Interpretive Statements Sinus rhythm Minimal ST elevation, inferior leads Compared to ECG 04/10/2019 17:14:27 no significant change was found Electronically Signed On 06-24-2019 8:15:26 CDT by Moe Amador [email or web address] <ELECTRONICALLY SIGNED> By: Moe Amador MD, [facility] 06/24/19 0815 1338 Moe Amador MD, FACC /EPI
== END 2019-06-23 14:15 | disposition home or self-care (01) ==
LOC: ER 13:22
DX: E11.65 Type 2 diabetes mellitus with hyperglycemia (principal); I10 Essential (primary) hypertension; E78.5 Hyperlipidemia, unspecified; Z95.5 Presence of coronary angioplasty implant and graft; Z79.4 Long term (current) use of insulin; Z87.891 Personal history of nicotine dependence

== ENCOUNTER 2019-07-07 17:08 | Emergency (ER) | payer OTHER ==
[~2019-07-07] VITALS: Ht 172.7 cm; Wt 83.9 kg
[2019-07-07 17:08] VITALS: BP 103/70
[2019-07-07] MEDS ORDERED: DOXYCYCLINE 10100 MG PO (18:25)
[2019-07-07] MEDS ORDERED: MEDROLDOSEPACK PO (18:25)
[2019-07-07] MEDS ORDERED: PROMETH-CODEIN 65 ML PO (18:25)
== END 2019-07-07 18:20 | disposition home or self-care (01) ==
LOC: ER 17:08
DX: R05 Cough (principal); I10 Essential (primary) hypertension; E11.9 Type 2 diabetes mellitus without complications; E78.5 Hyperlipidemia, unspecified; Z95.5 Presence of coronary angioplasty implant and graft; Z87.891 Personal history of nicotine dependence

== ENCOUNTER 2019-07-12 15:18 | Emergency (ER) | payer OTHER ==
[~2019-07-12] VITALS: Ht 172.7 cm; Wt 86.2 kg
[~2019-07-12 15:18] MED LIST changes: +DOXYCYCLINE 10100 MG PO; +PROMETH-CODEIN 65 ML PO
[2019-07-12 15:38] LABS: ABSOLUTE NEUTROPHILS 4.4 thou/uL (1.4-8.2); BASOPHILS 1.4 % (0.0-2.0); HEMATOCRIT 39.2 % (42.0-52.0); HEMOGLOBIN 13.4 gm/dL (14.0-18.0); LYMPHOCYTES 30.4 % (24.0-44.0); MCH 27.4 pg (26.0-34.0); MCHC 34.1 g/dL (28.0-37.0); MCV 80.2 fL (80.0-100.0); MONOCYTES 9.7 % (1.0-8.0); PLATELET COUNT 313 thou/uL (150-400); POLYS 54.5 % (36.0-66.0); RBC 4.88 mil/uL (4.50-6.00); WBC 8.1 thou/uL (4.0-11.0)
[2019-07-12 15:46] LABS: POTASSIUM 4.3 mmol/L (3.5-5.1)
[2019-07-12 15:52] LABS: ALBUMIN 3.3 g/dL (3.4-5.0); TOTAL BILIRUBIN 0.2 mg/dL (<0.1-1.0); TOTAL PROTEIN 7.5 g/dL (6.4-8.2)
[2019-07-12 17:02] LABS: TROPONIN-I <0.06 ng/mL (<0.06)
[2019-07-12 18:10] VITALS: BP 151/89
--- NOTE | 2019-07-14 11:21 | EKG ---
[place] [address] [facility] [place] [address] ELECTROCARDIOGRAM REPORT Name: ELDONMARYJORGE MOORE [facility] #: [facility]P [facility] [id number] Admission: 07/12/19 Attend Phys: Discharge: 07/12/19 Date of : 61 Report #: [id number] THIS REPORT FOR: //name// [facility] ED Test Date: 2019-07-12 Test Time: 17:18:06 Pat Name: MARY COLÓN Department: Room: Gender: M Civil Preparedness Training Officer: : 1965 Requested By: Virgilio Woodall Order Number: [id number] MD: Jose Aquino Measurements Intervals [place] Rate: 78 P: 23 [place]: 146 QRS: 19 QRSD: 94 T: 101 QT: 374 QTc: 426 Interpretive Statements Sinus rhythm Borderline repolarization abnormality Minimal ST elevation, inferior leads unchanged from prior Baseline wander in lead(s) V1 Compared to ECG 06/23/2019 13:38:30 No significant changes Electronically Signed On 07-14-2019 11:21:17 COORDINATOR OF LIBRARY SERVICES by Jose Aquino [email or web address] <ELECTRONICALLY SIGNED> By: Jose Aquino MD 07/14/19 1121 171 171 Jose Aquino MD /AILYN
== END 2019-07-12 18:20 | disposition home or self-care (01) ==
LOC: ER 15:18
PROVIDERS: Physician Assistant
DX: R25.2 Cramp and spasm (principal); E11.65 Type 2 diabetes mellitus with hyperglycemia; R20.0 Anesthesia of skin; I25.2 Old myocardial infarction; I10 Essential (primary) hypertension; E78.5 Hyperlipidemia, unspecified; Z79.4 Long term (current) use of insulin; Z95.1 Presence of aortocoronary bypass graft; Z95.2 Presence of prosthetic heart valve; Z87.891 Personal history of nicotine dependence

== ENCOUNTER 2019-07-27 14:08 | Emergency (ER) | payer OTHER ==
[~2019-07-27] VITALS: Ht 170.2 cm; Wt 83.9 kg
[2019-07-27 14:37] LABS: HEMATOCRIT 39.6 % (42.0-52.0); HEMOGLOBIN 13.4 gm/dL (14.0-18.0); MCH 27.3 pg (26.0-34.0); MCV 80.2 fL (80.0-100.0); PLATELET COUNT 299 thou/uL (150-400); RBC 4.93 mil/uL (4.50-6.00); RDW 14.6 % (10.5-14.5); WBC 8.5 thou/uL (4.0-11.0)
[2019-07-27 14:46] LABS: ANION GAP 12 mmol/L (7-16); BUN 20 mg/dL (7-18); CALCIUM 9.1 mg/dL (8.5-10.1); CHLORIDE 98 mmol/L (98-107); CO2 23 mmol/L (21-32); CREATININE 1.2 mg/dL (0.7-1.3); GLUCOSE 354 mg/dL (74-106); POTASSIUM 3.9 mmol/L (3.5-5.1); SODIUM 133 mmol/L (136-145)
[2019-07-27 14:56] LABS: LIPASE 211 U/L (73-393); SGOT 11 U/L (15-37); SGPT 20 U/L (30-65); TOTAL BILIRUBIN 0.4 mg/dL (<0.1-1.0); TROPONIN-I <0.06 ng/mL (<0.06)
[2019-07-27 15:25] LABS: ABSOLUTE NEUTROPHILS 4.9 thou/uL (1.4-8.2)
[2019-07-27 16:21] LABS: URINE BILIRUBIN NEGATIVE (Negative); URINE BLOOD NEGATIVE (Negative); URINE CLARITY CLEAR; URINE COLOR YELLOW; URINE GLUCOSE-RANDOM* 3+ (Negative); URINE KETONES NEGATIVE (Negative); URINE LEUKOCYTES-REFLEX NEGATIVE (Negative); URINE NITRITE-REFLEX NEGATIVE (Negative); URINE PROTEIN (DIPSTICK) NEGATIVE (Negative); URINE SPECIFIC GRAVITY 1.015 (1.005-1.035); URINE UROBILINOGEN 0.2 E.U./dl (0.2-1.0)
[2019-07-27] MEDS ORDERED: PEPCID20 MG PO (16:40)
[2019-07-27] MEDS ORDERED: ONDANSETRON HCL4 M2 PO (16:40)
[2019-07-27 17:07] VITALS: BP 147/79
--- NOTE | 2019-07-28 13:17 | EKG ---
[place] [address] [facility] [place] [address] ELECTROCARDIOGRAM REPORT Name: AMRY COLÓN [facility] [id number] Admission: 07/27/19 Attend Phys: Discharge: 07/27/19 Date of : 61 Report #: [id number] THIS REPORT FOR: //name// [facility] ED Test Date: 2019-07-27 Test Time: 14:51:08 Pat Name: MARY COLÓN Department: Room: Gender: Mail Messenger: WG : 1965 Requested By: Tika Benson Order Number: [id number] MD: Moe Amador Measurements Intervals [place] Rate: 81 P: 4 [place]: 130 QRS: 29 QRSD: 91 T: 87 QT: 349 QTc: 405 Interpretive Statements Sinus rhythm Minimal ST elevation, inferior leads, unchanged from previously Compared to ECG 07/12/2019 17:18:06 No significant changes Electronically Signed On 07-28-2019 13:17:17 BURNING PLANT OPERATOR by Moe Amador [email or web address] <ELECTRONICALLY SIGNED> By: Moe Amador MD, [facility] 07/28/19 1317 1451 1451 Moe Amador MD, FACC /EPI
== END 2019-07-27 17:11 | disposition home or self-care (01) ==
LOC: ER 14:08
PROVIDERS: Physician Assistant
DX: E86.0 Dehydration (principal); R11.2 Nausea with vomiting, unspecified; I10 Essential (primary) hypertension; E11.9 Type 2 diabetes mellitus without complications; I25.2 Old myocardial infarction; E78.5 Hyperlipidemia, unspecified; Z87.891 Personal history of nicotine dependence; Z95.1 Presence of aortocoronary bypass graft

== ENCOUNTER 2019-08-06 21:10 | Emergency (ER) | payer OTHER ==
[~2019-08-06] VITALS: Ht 170.2 cm; Wt 83.9 kg
[~2019-08-06 21:10] MED LIST changes: +PEPCID20 MG PO
[2019-08-06 21:45] LABS: ABSOLUTE NEUTROPHILS 4.4 thou/uL (1.4-8.2); BASOPHILS 1.2 % (0.0-2.0); EOSINOPHILS 3.8 % (0.0-3.0); HEMATOCRIT 39.3 % (42.0-52.0); HEMOGLOBIN 13.1 gm/dL (14.0-18.0); LYMPHOCYTES 31.6 % (24.0-44.0); MCH 26.7 pg (26.0-34.0); MCHC 33.2 g/dL (28.0-37.0); MCV 80.3 fL (80.0-100.0); MONOCYTES 10.9 % (1.0-8.0); PLATELET COUNT 295 thou/uL (150-400); POLYS 52.5 % (36.0-66.0); RDW 14.6 % (10.5-14.5); WBC 8.4 thou/uL (4.0-11.0)
[2019-08-06 21:55] LABS: ANION GAP 14 mmol/L (7-16); BUN 16 mg/dL (7-18); CALCIUM 9.6 mg/dL (8.5-10.1); CHLORIDE 100 mmol/L (98-107); CO2 24 mmol/L (21-32); CREATININE 1.1 mg/dL (0.7-1.3); GLUCOSE 238 mg/dL (74-106); POTASSIUM 3.8 mmol/L (3.5-5.1); SODIUM 138 mmol/L (136-145)
[2019-08-06 22:03] LABS: TROPONIN-I <0.06 ng/mL (<0.06)
[2019-08-06 23:16] VITALS: BP 165/93
--- NOTE | 2019-08-09 12:43 | EKG ---
[place] [address] [facility] [email or web address] [address] ELECTROCARDIOGRAM REPORT Name: MARY COLÓN [facility]: [facility]P [facility] [id number] Admission: 08/06/19 Attend Phys: Discharge: 08/06/19 Date of : 61 Report #: [id number] THIS REPORT FOR: //name// [facility] ED Test Date: 2019-08-06 Test Time: 21:16:04 Pat Name: MARY COLÓN Department: Room: Gender: Oyster Sorter: WG : 1965 Requested By: Ankush Rodríguez Order Number: [id number] MD: Moe Amador Measurements Intervals [place] Rate: 83 P: 5 [place]: 126 QRS: 31 QRSD: 92 T: 80 QT: 361 QTc: 425 Interpretive Statements Sinus rhythm Borderline ST elevation, inferior leads Compared to ECG 07/27/2019 14:51:08 No significant changes Electronically Signed On 08-09-2019 12:43:25 LEAD CARPENTER by Moe Amador [email or web address] <ELECTRONICALLY SIGNED> By: Moe Amador MD, [facility] 08/09/19 1243 2116 15 Moe Amador MD, FACC /EPI
== END 2019-08-06 23:18 ==
LOC: ER 21:10
PROVIDERS: Emergency Medicine
DX: R07.89 Other chest pain (principal); I10 Essential (primary) hypertension; E11.9 Type 2 diabetes mellitus without complications; E78.5 Hyperlipidemia, unspecified; Z95.5 Presence of coronary angioplasty implant and graft; Z79.4 Long term (current) use of insulin; Z87.891 Personal history of nicotine dependence

== ENCOUNTER 2019-08-09 12:38 | Emergency (ER) | payer OTHER ==
[~2019-08-09] VITALS: Ht 172.7 cm; Wt 83.9 kg
[2019-08-09 12:38] VITALS: BP 129/76
[2019-08-09] MEDS ORDERED: LIDODERM1 EACH TOP (13:20)
[2019-08-09] MEDS ORDERED: MEDROLDOSEPACK PO (13:20)
[2019-08-09] MEDS ORDERED: NORFLEX100 MG PO (13:20)
== END 2019-08-09 13:38 | disposition home or self-care (01) ==
LOC: ER 12:38
DX: M54.42 Lumbago with sciatica, left side (principal); E11.9 Type 2 diabetes mellitus without complications; I25.2 Old myocardial infarction; I10 Essential (primary) hypertension; E78.5 Hyperlipidemia, unspecified; Z87.891 Personal history of nicotine dependence; Z95.1 Presence of aortocoronary bypass graft; Z79.899 Other long term (current) drug therapy; Z79.4 Long term (current) use of insulin; Z79.82 Long term (current) use of aspirin

== ENCOUNTER 2019-08-21 07:33 | Emergency (ER) | payer OTHER ==
[~2019-08-21] VITALS: Ht 170.2 cm; Wt 86.2 kg
[~2019-08-21 07:33] MED LIST changes: +LIDODERM1 EACH TOP
[2019-08-21] MEDS ORDERED: BUTALB-APAP-CA1 EACH PO (09:13)
[2019-08-21 09:38] VITALS: BP 136/81
== END 2019-08-21 09:42 | disposition home or self-care (01) ==
LOC: ER 07:33
DX: J01.00 Acute maxillary sinusitis, unspecified (principal); E11.9 Type 2 diabetes mellitus without complications; I25.2 Old myocardial infarction; I10 Essential (primary) hypertension; E78.5 Hyperlipidemia, unspecified; Z79.899 Other long term (current) drug therapy; Z79.82 Long term (current) use of aspirin; Z79.4 Long term (current) use of insulin; Z87.891 Personal history of nicotine dependence

== ENCOUNTER 2019-08-28 05:46 | Emergency (ER) | payer OTHER ==
[~2019-08-28] VITALS: Ht 170.2 cm; Wt 83.9 kg
[2019-08-28 06:12] LABS: HEMATOCRIT 39.9 % (42.0-52.0); HEMOGLOBIN 13.5 gm/dL (14.0-18.0); MCHC 33.8 g/dL (28.0-37.0); RBC 4.98 mil/uL (4.50-6.00); WBC 6.9 thou/uL (4.0-11.0)
[2019-08-28 06:26] LABS: URINE BILIRUBIN NEGATIVE (Negative); URINE BLOOD NEGATIVE (Negative); URINE CLARITY CLEAR; URINE COLOR YELLOW; URINE GLUCOSE-RANDOM* NEGATIVE (Negative); URINE KETONES NEGATIVE (Negative); URINE LEUKOCYTES-REFLEX NEGATIVE (Negative); URINE NITRITE-REFLEX NEGATIVE (Negative); URINE PROTEIN (DIPSTICK) NEGATIVE (Negative); URINE UROBILINOGEN 0.2 E.U./dl (0.2-1.0)
[2019-08-28 06:28] LABS: ANION GAP 10 mmol/L (7-16); BUN 17 mg/dL (7-18); CALCIUM 8.9 mg/dL (8.5-10.1); CHLORIDE 102 mmol/L (98-107); CO2 26 mmol/L (21-32); GLUCOSE 190 mg/dL (74-106); POTASSIUM 3.7 mmol/L (3.5-5.1); SODIUM 138 mmol/L (136-145)
[2019-08-28 06:38] LABS: ALBUMIN 3.4 g/dL (3.4-5.0); SGOT 17 U/L (15-37); SGPT 24 U/L (30-65); TOTAL BILIRUBIN 0.3 mg/dL (<0.1-1.0); TOTAL PROTEIN 7.5 g/dL (6.4-8.2); TROPONIN-I <0.06 ng/mL (<0.06)
--- NOTE | 2019-08-28 08:12 | EKG ---
[place] [address] [place] [address] ELECTROCARDIOGRAM REPORT Name: MARY COLÓN Room #: REG [facility] [id number] Admission: 08/28/19 Attend Phys: Discharge: Date of : 61 Report #: [id number] THIS REPORT FOR: //name// [facility] ED Test Date: 2019-08-28 Test Time: 06:00:25 Pat Name: MARY COLÓN Department: Room: Gender: M Manager Ent: : 1965 Requested By: Ermelinda Meier Order Number: [id number] MD: Moe Amador Measurements Intervals [place] Rate: 74 P: 11 [place]: 136 QRS: 25 QRSD: 91 T: 84 QT: 373 QTc: 414 Interpretive Statements Sinus rhythm Minimal ST depression, inferior leads Poor R wave progression Compared to ECG 08/06/2019 21:16:04 No significant changes Electronically Signed On 08-28-2019 8:11:30 NECK FITTER by Moe Amador [email or web address] <ELECTRONICALLY SIGNED> By: Moe Amador MD, [facility] 08/28/19 0811 0600 0600 Moe Amador MD, FACC /EPI
[2019-08-28] MEDS ORDERED: MECLIZINE HCL25 M1 PO (08:15)
[2019-08-28 08:50] VITALS: BP 160/88
== END 2019-08-28 08:52 | disposition home or self-care (01) ==
LOC: ER 05:46
PROVIDERS: Student in an Organized Health Care Education/Training Program
DX: H81.10 Benign paroxysmal vertigo, unspecified ear (principal); I10 Essential (primary) hypertension; E11.9 Type 2 diabetes mellitus without complications; E78.5 Hyperlipidemia, unspecified; Z87.891 Personal history of nicotine dependence

== ENCOUNTER 2019-10-30 19:56 | Emergency (ER) | payer OTHER ==
[~2019-10-30] VITALS: Ht 170.2 cm; Wt 88.5 kg
[~2019-10-30 19:56] MED LIST changes: +MECLIZINE HCL25 M1 PO
[2019-10-30 23:06] VITALS: BP 131/87
== END 2019-10-30 23:20 | disposition home or self-care (01) ==
LOC: ER 19:56
DX: R51 Headache (principal); E11.9 Type 2 diabetes mellitus without complications; I25.2 Old myocardial infarction; E78.5 Hyperlipidemia, unspecified; Z87.891 Personal history of nicotine dependence; Z95.1 Presence of aortocoronary bypass graft

== ENCOUNTER 2019-11-18 06:31 | Emergency (ER) | payer OTHER ==
[~2019-11-18] VITALS: Ht 170.2 cm; Wt 88.5 kg
[2019-11-18] MEDS ORDERED: PLAVIX 75 MG TA75 MG PO (06:51)
[2019-11-18 07:18] LABS: HEMOGLOBIN 12.6 gm/dL (14.0-18.0); MCH 26.6 pg (26.0-34.0); MCHC 33.1 g/dL (28.0-37.0); MCV 80.4 fL (80.0-100.0); PLATELET COUNT 254 thou/uL (150-400); RBC 4.73 mil/uL (4.50-6.00); RDW 14.2 % (10.5-14.5); WBC 5.8 thou/uL (4.0-11.0)
[2019-11-18 07:28] LABS: ANION GAP 8 mmol/L (7-16); BUN 15 mg/dL (7-18); CALCIUM 8.4 mg/dL (8.5-10.1); CHLORIDE 100 mmol/L (98-107); CO2 27 mmol/L (21-32); GLUCOSE 379 mg/dL (74-106); POTASSIUM 3.3 mmol/L (3.5-5.1); SODIUM 135 mmol/L (136-145)
[2019-11-18 07:36] LABS: TROPONIN-I <0.06 ng/mL (<0.06)
[2019-11-18 08:38] LABS: ABSOLUTE NEUTROPHILS 2.3 thou/uL (1.4-8.2); PLATELET ESTIMATE NORMAL
--- NOTE | 2019-11-18 09:01 | EKG ---
[facility] [place] [address] ELECTROCARDIOGRAM REPORT Name: ELDONMARY JESUSNE Room #: REG [facility]#: [id number] Admission: 11/18/19 Attend Phys: Discharge: Date of : 61 Report #: [id number] THIS REPORT FOR: cc: FAM - Family physician unknown FAM - Family physician unknown Jose Aquino MD ~ THIS REPORT FOR: //name// [facility] ED Test Date: 2019-11-18 Test Time: 06:33:27 Pat Name: MARY COLÓN Department: Room: Gender: M Scrap Stripper Hand: SHANELL : 1965 Requested By: Ana María Deshpande Order Number: [id number] MD: Jose Aquino Measurements Intervals [place] Rate: 69 P: -4 [place]: 142 QRS: 19 QRSD: 104 T: 105 QT: 398 QTc: 427 Interpretive Statements Sinus rhythm Nonspecific repol abnormality, lateral leads Compared to ECG 08/28/2019 06:00:25 Early repolarization now present ST (T wave) deviation no longer present Poor R-wave progression no longer present Electronically Signed On 11-18-2019 9:00:06 CDT by Jose Aquino [email or web address] <ELECTRONICALLY SIGNED> By: Jose Aquino MD 11/18/19899 Jose Aquino MD /EPI
[2019-11-18 10:09] VITALS: BP 156/88
== END 2019-11-18 10:12 | disposition home or self-care (01) ==
LOC: ER 06:31
PROVIDERS: Emergency Medicine
DX: R07.89 Other chest pain (principal); R06.02 Shortness of breath; I25.2 Old myocardial infarction; I10 Essential (primary) hypertension; E78.5 Hyperlipidemia, unspecified; E11.9 Type 2 diabetes mellitus without complications; Z98.61 Coronary angioplasty status; Z79.899 Other long term (current) drug therapy; Z79.82 Long term (current) use of aspirin; Z87.891 Personal history of nicotine dependence

== ENCOUNTER 2019-11-25 17:21 | Emergency (ER) | payer OTHER ==
[~2019-11-25] VITALS: Ht 175.3 cm; Wt 83.9 kg
[~2019-11-25 17:21] MED LIST changes: +PLAVIX 75 MG TA75 MG PO
[2019-11-25 19:14] VITALS: BP 135/86
== END 2019-11-25 19:15 | disposition home or self-care (01) ==
LOC: ER 17:21
DX: R09.81 Nasal congestion (principal); R51 Headache; E11.9 Type 2 diabetes mellitus without complications; I25.2 Old myocardial infarction; I10 Essential (primary) hypertension; E78.5 Hyperlipidemia, unspecified; Z98.61 Coronary angioplasty status; Z79.899 Other long term (current) drug therapy; Z79.4 Long term (current) use of insulin; Z79.82 Long term (current) use of aspirin; Z87.891 Personal history of nicotine dependence

== ENCOUNTER 2019-11-27 04:58 | Inpatient (IN) | payer OTHER ==
[~2019-11-27] VITALS: Ht 170.2 cm; Wt 88.5 kg
[2019-11-27 05:02] VITALS: BP 143/84
[2019-11-27 05:20] LABS: HEMATOCRIT 37.9 % (42.0-52.0); HEMOGLOBIN 12.8 gm/dL (14.0-18.0); MCH 26.6 pg (26.0-34.0); MCHC 33.7 g/dL (28.0-37.0); MCV 78.8 fL (80.0-100.0); PLATELET COUNT 273 thou/uL (150-400); RBC 4.82 mil/uL (4.50-6.00); RDW 13.9 % (10.5-14.5); WBC 6.2 thou/uL (4.0-11.0)
[2019-11-27 05:24] LABS: ANION GAP 11 mmol/L (7-16); BUN 17 mg/dL (7-18); CALCIUM 8.5 mg/dL (8.5-10.1); CHLORIDE 100 mmol/L (98-107); CO2 23 mmol/L (21-32); CREATININE 0.9 mg/dL (0.7-1.3); GLUCOSE 320 mg/dL (74-106); POTASSIUM 4.1 mmol/L (3.5-5.1); SODIUM 134 mmol/L (136-145)
[2019-11-27 05:32] LABS: TROPONIN-I <0.06 ng/mL (<0.06)
[2019-11-27 06:12] LABS: ABSOLUTE NEUTROPHILS 2.8 thou/uL (1.4-8.2)
[2019-11-27 06:13] LABS: ANISOCYTOSIS 1+; PLATELET ESTIMATE NORMAL; POIKILOCYTOSIS 1+
[2019-11-27 06:43] VITALS: BP 150/89
[2019-11-27 07:20] VITALS: BP 169/96
[2019-11-27 08:24] VITALS: BP 155/80
[2019-11-27 11:57] VITALS: BP 174/95
[2019-11-27 12:38] VITALS: BP 174/95
--- NOTE | 2019-11-27 13:38 | 2DMMODE ---
[facility] [place] [address] 2 D/M-MODE ECHOCARDIOGRAM Name: MARY COLÓN Room #: 218-P ADM IN M.R.#: [id number] Admission: 11/27/19 Attend Phys: Jacinto Lima Discharge: Date of : 61 Report #: [id number] THIS REPORT FOR: cc: KLEVER OROZCO Physician not on staff Fred Garcia MD [facility] ~ APPROVED REPORT Study performed: 11/27/2019 12:58:43 EXAM: Comprehensive 2D, Doppler, and color-flow Echocardiogram Patient Location: Echo lab Room #: 218 Status: routine BSA: 2.00 HR: 80 bpm BP: 174/95 mmHg Rhythm: NSR Other Information Study Quality: Good Indications Chest Pain Hx: [place], CABG, stent, HTN, HLP, DM, Tob/Etoh/drug abuse. 2D Dimensions RVDd: 38.19 mm IVSd: 11.21 (7-11mm) LVOT Diam: 20.38 (18-24mm) LVDd: 47.64 mm PWd: 9.87 (7-11mm) LVDs: 33.69 (25-40mm) Aortic Root: 36.03 mm Volumes Left Atrial Volume (Systole) Single Plane 4CH: 45.95 mL Single Plane 2CH: 51.46 mL LA ESV Index: 26.00 mL/m2 Aortic Valve AoV Peak Alf.: 1.28 m/s AO Peak Gr.: 6.59 mmHg LVOT Max P.44 mmHg LVOT Max V: 0.93 m/s SHUKRI Vmax: 2.35 cm2 [facility] [address] [address] 2 D/M-MODE ECHOCARDIOGRAM Name: MARY COLÓN Room #: 218-P [facility] IN [facility]#: [id number] Admission: 11/27/19 Attend Phys: Jacinto Barrett Nov Discharge: Date of : 61 Report #: [id number] Mitral Valve E/A Ratio: 0.8 MV Decel. Time: 210.32 ms MV E Max Alf.: 0.75 m/s MV A Alf.: 0.96 m/s MV PHT: 60.99 ms IVRT: 89.97 ms Pulmonary Valve PV Peak Alf.: 1.05 m/s PV Peak Gr.: 4.42 mmHg Pulmonary Vein P Vein S: 0.47 m/s P Vein A: 0.27 m/s P Vein D: 0.42 m/s P Vein A Dur.: 100.3 msec P Vein S/D Ratio: 1.12 Tricuspid Valve TR Peak Alf.: 2.27 m/s RAP Estimate: 5.00 mmHg TR Peak Gr.: 21.00 mmHg PA Pressure: 26.00 mmHg Left Ventricle The left ventricle is normal size. There is normal left ventricular wall thickness. Left ventricular systolic function is normal. LVEF is 55-60%. Mild diastolic dysfunction is present (impaired relaxation pattern). Right Ventricle The right ventricle is normal size. The right ventricular systolic function is normal. Atria The left atrium size is normal. The right atrium size is normal. Aortic Valve The aortic valve is normal in structure. Leaflets are mildly calcified. No aortic regurgitation is present. There is no aortic valvular stenosis. Mitral Valve The mitral valve is normal in structure. Mild mitral regurgitation. Tricuspid Valve [facility] [address] [place] [address] 2 D/M-MODE ECHOCARDIOGRAM Name: ELDONMARYJORGE MOORE Room #: 218-P [facility] IN M.R.#: [id number] Admission: 11/27/19 Attend Phys: Jacinto Chung Discharge: Date of : 61 Report #: [id number] The tricuspid valve is normal in structure. Trace tricuspid regurgitation. Estimated PAP is 25-30mmHg. Pulmonic Valve Pulmonic valve is not well visualized. Trace pulmonic regurgitation. Great Vessels The aortic root is normal in size. Ascending aorta is not well visualized. IVC is normal in size and collapses >50% with inspiration. Pericardium There is no pericardial effusion. <Conclusion> The left ventricle is normal size. LVEF is 55-60%. Mild diastolic dysfunction is present (impaired relaxation pattern). Mild diastolic dysfunction is present (impaired relaxation pattern). The right ventricle is normal size. The left atrium size is normal. The aortic valve is normal in structure. Leaflets are mildly calcified. There is no aortic valvular stenosis. Mild mitral regurgitation. Trace tricuspid regurgitation. Estimated PAP is 25-30mmHg. The aortic root is normal in size. There is no pericardial effusion. <ELECTRONICALLY SIGNED> By: Fred Garcia MD, FACC 11/27/19 1337 1337 133 Fred Garcia MD, FACC /INF
--- NOTE | 2019-11-27 14:45 | NUR ---
PT CARE ASSUMED APPROX 0700. PT DENIES PAIN AND SOA. VSS. UP WITH STEADY GAIT. BP SLIGHTLY ELEVATED DR BETANCUR. PT DISCHARGED AT THIS AT TIME AND REPORTS THAT HE WILL TAKE HIS ROUTINE MEDS WHEN HE GETS HOME. DISCHARGE EDUCATION COMPLETED WITH PT. HE DENIES QUESTIONS OR CONCERNS REGARDING [facility] CARES. IV OUT, TELE BOX OFF. NURSING STAFF ESCORTED PT OUT.
--- NOTE | 2019-11-28 07:46 | EKG ---
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: FRAN : 1965 Requested By: Ankush Rodríguez Order Number: [id number] MD: Moe Amador Measurements Intervals [place] Rate: 76 P: 26 [place]: 138 QRS: 24 QRSD: 89 T: 113 QT: 367 QTc: 413 Interpretive Statements Sinus rhythm Repol abnrm suggests ischemia, lateral leads Minimal ST elevation, inferior leads Compared to ECG 11/18/2019 06:33:27 No significant change was found Electronically Signed On 11-28-2019 7:45:37 CDT by Moe Amador [email or web address] <ELECTRONICALLY SIGNED> By: Moe Amador MD, [facility] 11/28/19 0745 0459 0459 Moe Amador MD, [facility] /EPI
== END 2019-11-27 14:47 | disposition home or self-care (01) | DRG 313 ==
LOC: ER 04:58 → 2N 06:23 → EROBS 06:23 → 2N 07:21
PROVIDERS: Emergency Medicine; ADMIT Hospitalist
DX: R07.89 Other chest pain (principal); E11.9 Type 2 diabetes mellitus without complications; E78.5 Hyperlipidemia, unspecified; I25.10 Atherosclerotic heart disease of native coronary artery without angina pectoris; F41.9 Anxiety disorder, unspecified; F32.9 Major depressive disorder, single episode, unspecified; I70.1 Atherosclerosis of renal artery; Z95.1 Presence of aortocoronary bypass graft; I25.2 Old myocardial infarction; Z95.5 Presence of coronary angioplasty implant and graft; Z87.891 Personal history of nicotine dependence; Z82.49 Family history of ischemic heart disease and other diseases of the circulatory system; Z83.3 Family history of diabetes mellitus
CPT/HCPCS: 10081

== ENCOUNTER 2020-04-24 18:15 | Emergency (ER) | payer OTHER ==
[~2020-04-24] VITALS: Ht 170.2 cm; Wt 97.5 kg
[2020-04-24 18:21] VITALS: BP 142/83
[2020-04-24] MEDS ORDERED: TESSALON PERLE100 MG PO (18:54)
[2020-04-24] MEDS ORDERED: BUTALB-APAP-CA1 EACH PO (18:54)
[2020-04-24] MEDS ORDERED: PREDNISONE 20 M20 MG PO (18:54)
== END 2020-04-24 19:01 | disposition home or self-care (01) ==
LOC: ER 18:15
DX: R05 Cough (principal); Z20.828 Contact with and (suspected) exposure to other viral communicable diseases; E11.9 Type 2 diabetes mellitus without complications; I25.2 Old myocardial infarction; I10 Essential (primary) hypertension; E78.5 Hyperlipidemia, unspecified; Z87.891 Personal history of nicotine dependence; Z79.82 Long term (current) use of aspirin; Z79.899 Other long term (current) drug therapy; Z95.1 Presence of aortocoronary bypass graft

== ENCOUNTER 2020-06-09 05:24 | Inpatient (IN) | payer OTHER ==
[2020-06-09] VITALS (31 sets, daily range): BP systolic 136–196; BP diastolic 67–131
[~2020-06-09] VITALS: Ht 170.2 cm; Wt 93.9 kg
[~2020-06-09 05:24] MED LIST changes: +PREDNISONE 20 M20 MG PO
[2020-06-09 05:50] LABS: HEMATOCRIT 38.1 % (42.0-52.0); HEMOGLOBIN 13.1 gm/dL (14.0-18.0); MCH 27.6 pg (26.0-34.0); MCHC 34.5 g/dL (28.0-37.0); MCV 79.9 fL (80.0-100.0); PLATELET COUNT 280 thou/uL (150-400); RBC 4.77 mil/uL (4.50-6.00); RDW 14.6 % (10.5-14.5); WBC 7.7 thou/uL (4.0-11.0)
[2020-06-09 06:24] LABS: URINE BILIRUBIN NEGATIVE (Negative); URINE BLOOD TRACE (Negative); URINE CLARITY CLEAR; URINE COLOR YELLOW; URINE GLUCOSE-RANDOM* NEGATIVE (Negative); URINE KETONES NEGATIVE (Negative); URINE LEUKOCYTES-REFLEX NEGATIVE (Negative); URINE NITRITE-REFLEX NEGATIVE (Negative); URINE PROTEIN (DIPSTICK) NEGATIVE (Negative); URINE UROBILINOGEN 0.2 E.U./dl (0.2-1.0)
[2020-06-09 06:24] LABS: ANION GAP 11 mmol/L (7-16); BUN 14 mg/dL (7-18); CALCIUM 8.7 mg/dL (8.5-10.1); CHLORIDE 103 mmol/L (98-107); CO2 25 mmol/L (21-32); GLUCOSE 200 mg/dL (74-106); POTASSIUM 3.8 mmol/L (3.5-5.1); SODIUM 139 mmol/L (136-145)
[2020-06-09 06:34] LABS: ALBUMIN 3.3 g/dL (3.4-5.0); SGOT 17 U/L (15-37); SGPT 28 U/L (30-65); TOTAL BILIRUBIN 0.3 mg/dL (0.2-1.0); TOTAL PROTEIN 7.1 g/dL (6.4-8.2); TROPONIN-I <0.06 ng/mL (<0.06)
[2020-06-09] MEDS ORDERED: BYSTOLIC10 MG PO (06:52)
[2020-06-09] MEDS ORDERED: EDARBYCLOR 40-1 EAC1 PO (06:53)
[2020-06-09 07:03] LABS: PROTIME 10.2 Seconds (9.3-11.4)
[2020-06-09] MEDS ORDERED: ISOSORBIDE MONO20 MG PO (07:05)
[2020-06-09 10:33] LABS: ABSOLUTE NEUTROPHILS 3.5 thou/uL (1.4-8.2); ANISOCYTOSIS SLIGHT; ATYPICAL LYMPHS 1 %; POIKILOCYTOSIS SLIGHT
--- NOTE | 2020-06-09 10:56 | NUR ---
PT ARRIVED ON THE UNIT @ 0955, PT ASSESSMENTS AND VSS COMPLETED PER ICU PROTOCOL. TPA ADMINISTRATION COMPLETED BY WATER PROOFER @ 0840. @ 1020 SWALLOW EVALUATION DONE BY SPEECH THERAPIST AT BEDSIDE, PT PASSED, DIET ORDER PLACED. WILL CONTINUE TO MONITOR.
[2020-06-09 11:29] LABS: CHOLESTEROL 254 mg/dL (<200); HDL CHOLESTEROL 45 mg/dL (>40); LDL CHOLESTEROL 164 mg/dL (<100); TC:HDL 5.6 Ratio (Not establshd); TRIGLYCERIDE 225 mg/dL (<150); VLDL 45 mg/dL (<40)
[2020-06-09 11:53] LABS: TSH 2.05 uIU/mL (0.358-3.740)
--- NOTE | 2020-06-09 15:55 | 2DMMODE ---
[facility] [address] [place] [address] 2 D/M-MODE ECHOCARDIOGRAM Name: MARY COLÓN Room #: 249-P ADM IN M.R.#: [id number] Admission: 06/09/20 Attend Phys: Jacinto Lima Discharge: Date of : 61 Report #: [id number] THIS REPORT FOR: cc: FAM - No family physician/PCP FAM - No family physician/PCP Joel Rowan MD ~ APPROVED REPORT Study performed: 06/09/2020 13:54:05 EXAM: Comprehensive 2D, Doppler, and color-flow Echocardiogram Patient Location: ICU Room #: 249 Status: routine BSA: 2.05 HR: 72 bpm BP: 148/83 mmHg Rhythm: NSR Other Information Study Quality: Adequate Indications Diabetes CAD Chest Pain Hypertension/HDD Hypertensive urgency, HLD 2D Dimensions RVDd: 28.36 mm IVSd: 14.41 (7-11mm) LVOT Diam: 22.27 (18-24mm) LVDd: 45.42 mm PWd: 13.21 (7-11mm) Ascending Ao: 32.48 (22-36mm) LVDs: 31.95 (25-40mm) Aortic Root: 30.31 mm IVC: 20.00 mm Volumes Left Atrial Volume (Systole) Single Plane 4CH: 48.55 mL Single Plane 2CH: 45.32 mL LA ESV Index: 24.00 mL/m2 Aortic Valve AoV Peak Alf.: 1.02 m/s [facility] [address] [place] [address] 2 D/M-MODE ECHOCARDIOGRAM Name: MARY COLÓN Room #: 249-P [facility] IN M.R.#: [id number] Admission: 06/09/20 Attend Phys: Jacinto Chung Discharge: Date of : 61 Report #: [id number] AO Peak Gr.: 4.63 mmHg LVOT Max P.89 mmHg LVOT Max V: 0.99 m/s SHUKRI Vmax: 3.77 cm2 Mitral Valve E/A Ratio: 1.2 MV Decel. Time: 229.09 ms MV E Max Alf.: 0.89 m/s MV A Alf.: 0.72 m/s MV PHT: 66.43 ms IVRT: 83.04 ms Pulmonary Valve PV Peak Alf.: 0.96 m/s PV Peak Gr.: 3.66 mmHg Pulmonary Vein P Vein S: 0.54 m/s P Vein A: 0.16 m/s P Vein D: 0.59 m/s P Vein A Dur.: 93.4 msec P Vein S/D Ratio: 0.92 Tricuspid Valve RAP Estimate: 5.00 mmHg Left Ventricle The left ventricle is normal size. There is normal LV segmental wall motion. Mild concentric left ventricular hypertrophy. The left ventricular systolic function is normal. The left ventricular ejection fraction is within the normal range. LVEF is 60-65%. Grade II - pseudonormal filling dynamics. Right Ventricle The right ventricle is normal size. The right ventricular systolic function is normal. Atria The left atrium size is normal. The right atrium size is normal. Aortic Valve Aortic valve leaflets are mildly thickened. No aortic regurgitation is present. There is no aortic valvular stenosis. Mitral Valve The mitral valve is normal in structure. Mild mitral regurgitation. No evidence of mitral valve stenosis. [facility] [place] [address] 2 D/M-MODE ECHOCARDIOGRAM Name: MARY COLÓN Room #: 249-P ADM IN M.R.#: [id number] Admission: 06/09/20 Attend Phys: Jacinto Chung Discharge: Date of : 61 Report #: [id number] Tricuspid Valve The tricuspid valve is normal in structure. There is no tricuspid valve regurgitation noted. Unable to assess PA pressure. Pulmonic Valve The pulmonary valve is normal in structure. There is no pulmonic valvular regurgitation. Great Vessels The aortic root is normal in size. IVC is normal in size and collapses >50% with inspiration. Pericardium There is no pericardial effusion. <Conclusion> The left ventricle is normal size. Mild concentric left ventricular hypertrophy. The left ventricular systolic function is normal. The right ventricle is normal size. The left atrium size is normal. Aortic valve leaflets are mildly thickened. Mild mitral regurgitation. <ELECTRONICALLY SIGNED> By: Joel Rowan MD 06/09/20 1555 1555 1555 Joel Rowan MD /INF
[2020-06-10] VITALS (17 sets, daily range): BP systolic 136–179; BP diastolic 72–94
[2020-06-10 01:06] LABS: GLYCOHEMOGLOBIN (HGB A1C) 10.2 % (4.8-5.6)
--- NOTE | 2020-06-10 04:26 | NUR ---
ASSUMED PT CARE AT 1900. VSS. PT A&0X4. ASSESMENTS ARE CHARTED. CONSENTS SIGNED FOR MRI THIS AM. PT IS STABLE, PT REPORTS INCREASED STRENGHT ON LEFT SIDE WILL CONTINUE TO CLOSELY MONITOR.
--- NOTE | 2020-06-10 12:48 | NUR ---
chart review, unable to visit with pt rt resting. cm spoke with jennifer ex- bertha and daughter julieta via phone call. intro to cm and dcp. bertha reported, he lives next door, she are still friend. has support from me and kids if needed. julieta drives him places if needed. he does drive sometimes. has 2 steps to enter home then everything on 1 level. no dme, no rehab or hh in past. has outpt rehab 15 or so years ago after heart attack. his dr at [facility] left so he not seen a new dr. he has had falls at home in past, just goes down, i hope if they say he needs rehab he will do it. call any time thank you per bertha. will cont following as needed for dc needs.
[2020-06-10] MEDS ORDERED: LIPITOR40 MG PO (14:57)
[2020-06-10] MEDS ORDERED: BENICAR40 MG PO (14:57)
--- NOTE | 2020-06-10 16:10 | NUR ---
PT DISCHARGED ON 06/10/20 AT 1600. PT TOOK HIS BELONGINGS. TWO PERIPHERAL IV'S OUT. 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 PT WAS EDUCATED ON PLAVIX MEDICATION. PT WAS ALSO INTRUCTED ABOUT HIS NEXT SCHEDULED APPOINTMENT AT ON 07/07/20. PT IS OKAY TO BE DISCARHED BY NEUROLOGY. PT DOES NOT REQUIRE HOLTER MONITORING AT THIS MOMENT PER CARDIOLOGY.
== END 2020-06-10 16:00 | disposition home or self-care (01) | DRG 65 ==
LOC: ER 05:24 → ICU 08:43 → EROBS 08:43 → ICU 10:01
PROVIDERS: Emergency Medicine; Nurse Practitioner Adult Health; Student in an Organized Health Care Education/Training Program; ADMIT Hospitalist; ATTEND Hospitalist
DX: I63.9 Cerebral infarction, unspecified (principal); G81.94 Hemiplegia, unspecified affecting left nondominant side; I10 Essential (primary) hypertension; E78.5 Hyperlipidemia, unspecified; I16.0 Hypertensive urgency; E11.9 Type 2 diabetes mellitus without complications; E78.00 Pure hypercholesterolemia, unspecified; F10.11 Alcohol abuse, in remission; F15.11 Other stimulant abuse, in remission; I65.21 Occlusion and stenosis of right carotid artery; I34.0 Nonrheumatic mitral (valve) insufficiency; Z95.1 Presence of aortocoronary bypass graft; Z79.84 Long term (current) use of oral hypoglycemic drugs; I25.2 Old myocardial infarction; Z79.4 Long term (current) use of insulin; Z95.5 Presence of coronary angioplasty implant and graft; Z79.899 Other long term (current) drug therapy; Z79.82 Long term (current) use of aspirin; Z92.82 Status post administration of tPA (rtPA) in a different facility within the last 24 hours prior to admission to current facility; Z87.891 Personal history of nicotine dependence; Z91.14 Patient's other noncompliance with medication regimen
CPT/HCPCS: 10078

== ENCOUNTER 2020-06-17 13:51 | Emergency (ER) | payer OTHER ==
[~2020-06-17] VITALS: Ht 170.2 cm; Wt 95.3 kg
[~2020-06-17 13:51] MED LIST changes: +BENICAR40 MG PO; +BYSTOLIC10 MG PO; +EDARBYCLOR 40-1 EAC1 PO; +ISOSORBIDE MONO20 MG PO; +LIPITOR40 MG PO
[2020-06-17 14:37] LABS: HEMATOCRIT 40.5 % (42.0-52.0); MCH 27.8 pg (26.0-34.0); MCHC 34.5 g/dL (28.0-37.0); MCV 80.7 fL (80.0-100.0); PLATELET COUNT 284 thou/uL (150-400); RBC 5.02 mil/uL (4.50-6.00); RDW 14.4 % (10.5-14.5); WBC 8.2 thou/uL (4.0-11.0)
[2020-06-17 14:46] LABS: ANION GAP 10 mmol/L (7-16); BUN 20 mg/dL (7-18); CALCIUM 9.1 mg/dL (8.5-10.1); CHLORIDE 99 mmol/L (98-107); CO2 28 mmol/L (21-32); GLUCOSE 358 mg/dL (74-106); POTASSIUM 3.6 mmol/L (3.5-5.1); SODIUM 137 mmol/L (136-145)
[2020-06-17 14:56] LABS: TROPONIN-I <0.06 ng/mL (<0.06)
[2020-06-17 15:01] LABS: ABSOLUTE NEUTROPHILS 5.1 thou/uL (1.4-8.2)
[2020-06-17 17:16] VITALS: BP 156/81
--- NOTE | 2020-06-18 10:04 | EKG ---
[facility] [place] [address] ELECTROCARDIOGRAM REPORT Name: MARY COLÓN [facility] [id number] Admission: 06/17/20 Attend Phys: Discharge: 06/17/20 Date of : 61 Report #: [id number] THIS REPORT FOR: cc: JOELLE Hui family physician/PCP JOELLE Hui family physician/PCP Vitaly May MD [facility] ~ THIS REPORT FOR: //name// [facility] ED Test Date: 2020-06-17 Test Time: 14:17:56 Pat Name: MARY COLÓN Department: Room: Gender: Heater Worker: [facility] : 1965 Requested By: Ankush Rodríguez Order Number: [id number] MD: Vitaly May Measurements Intervals [place] Rate: 75 P: 20 CT: 140 QRS: 27 QRSD: 95 T: 114 QT: 379 QTc: 424 Interpretive Statements Sinus rhythm LVH with secondary repolarization abnormality Compared to ECG 11/27/2019 05:40:26 Left ventricular hypertrophy now present Possible ischemia no longer present Electronically Signed On 06-18-2020 10:04:14 CDT by Vitaly May [email or web address] <ELECTRONICALLY SIGNED> By: Vitaly May MD, FACC 06/18/20 1004 1417 1417 Vitaly May MD, FAC /EPI
== END 2020-06-17 17:11 | disposition home or self-care (01) ==
LOC: ER 13:51
PROVIDERS: Emergency Medicine
DX: R42 Dizziness and giddiness (principal); R41.82 Altered mental status, unspecified; E11.9 Type 2 diabetes mellitus without complications; I10 Essential (primary) hypertension; E78.5 Hyperlipidemia, unspecified; Z95.5 Presence of coronary angioplasty implant and graft; Z87.891 Personal history of nicotine dependence; Z79.4 Long term (current) use of insulin

== ENCOUNTER 2020-06-24 10:23 | Emergency (ER) | payer OTHER ==
[~2020-06-24] VITALS: Ht 170.2 cm; Wt 95.3 kg
[2020-06-24 12:02] VITALS: BP 168/91
== END 2020-06-24 12:03 | disposition home or self-care (01) ==
LOC: ER 10:23
DX: R53.83 Other fatigue (principal); I10 Essential (primary) hypertension; E11.9 Type 2 diabetes mellitus without complications; I25.2 Old myocardial infarction; E78.5 Hyperlipidemia, unspecified; Z86.73 Personal history of transient ischemic attack (TIA), and cerebral infarction without residual deficits; Z79.82 Long term (current) use of aspirin; Z79.01 Long term (current) use of anticoagulants; Z79.4 Long term (current) use of insulin; Z79.899 Other long term (current) drug therapy; Z87.891 Personal history of nicotine dependence

== ENCOUNTER 2020-07-05 14:26 | Inpatient (IN) | payer OTHER ==
[~2020-07-05] VITALS: Ht 170.2 cm; Wt 93.0 kg
[2020-07-05 14:34] VITALS: BP 130/73
[2020-07-05 15:11] LABS: BASOPHILS 1.4 % (0.0-2.0); EOSINOPHILS 4.1 % (0.0-3.0); HEMOGLOBIN 13.9 gm/dL (14.0-18.0); LYMPHOCYTES 23.4 % (24.0-44.0); MCH 27.7 pg (26.0-34.0); MCV 81.4 fL (80.0-100.0); MONOCYTES 11.7 % (1.0-8.0); PLATELET COUNT 288 thou/uL (150-400); POLYS 59.4 % (36.0-66.0); RBC 5.04 mil/uL (4.50-6.00); RDW 14.1 % (10.5-14.5); WBC 6.7 thou/uL (4.0-11.0)
[2020-07-05 15:21] LABS: ANION GAP 12 mmol/L (7-16); BUN 19 mg/dL (7-18); CALCIUM 8.9 mg/dL (8.5-10.1); CHLORIDE 99 mmol/L (98-107); CO2 24 mmol/L (21-32); CREATININE 1.2 mg/dL (0.7-1.3); GLUCOSE 380 mg/dL (74-106); SODIUM 135 mmol/L (136-145)
[2020-07-05 15:30] LABS: TROPONIN-I <0.06 ng/mL (<0.06)
[2020-07-05 17:05] VITALS: BP 135/78
[2020-07-05 18:09] VITALS: BP 135/78
[2020-07-05 19:12] VITALS: BP 130/85
[2020-07-05 20:55] VITALS: BP 149/84
--- NOTE | 2020-07-06 01:09 | NUR ---
RECEIVED REPORT FROM NANCY ED RN.PATIENT ARRIVED TO ROOM 208 AROUND 2014. A/O X 4.DENIES CHEST PAIN AND SOB.UP INDEPENDENTLY.NPO AFTER MIDNIGHT. CARDIOLOGY WAS CONSULTED.MONITOR SHOWS SINUS RHYTHM.POC CONTINUED.
[2020-07-06 04:29] LABS: POTASSIUM 3.7 mmol/L (3.5-5.1)
[2020-07-06 04:57] LABS: HEMATOCRIT 40.1 % (42.0-52.0); HEMOGLOBIN 13.6 gm/dL (14.0-18.0); MCH 27.7 pg (26.0-34.0); MCV 81.4 fL (80.0-100.0); RBC 4.93 mil/uL (4.50-6.00); RDW 14.2 % (10.5-14.5); WBC 5.8 thou/uL (4.0-11.0)
[2020-07-06 05:35] VITALS: BP 176/91
--- NOTE | 2020-07-06 07:34 | EKG ---
[facility] [place] [address] ELECTROCARDIOGRAM REPORT Name: MARY COLÓN Room #: 208-P ADM IN M.R.#: [id number] Admission: 07/05/20 Attend Phys: Prem Pantoja MD Discharge: Date of : 61 Report #: [id number] THIS REPORT FOR: cc: Bridger Oro MD, Tom E. MD Lundgren,Moe Frazier MD [facility] ~ THIS REPORT FOR: //name// [facility] ED Test Date: 2020-07-05 Test Time: 14:29:59 Pat Name: MARY COLÓN Department: Room: 208 Gender: M Damage Appraiser: TERESA : 1965 Requested By: Volodymyr Trejo Order Number: [id number] MD: Meo Amador Measurements Intervals [place] Rate: 75 P: 25 [place]: 134 QRS: 39 QRSD: 92 T: 125 QT: 387 QTc: 433 Interpretive Statements Sinus rhythm T wave abnormality, consider lateral ischemia Borderline ST elevation, inferior leads Compared to ECG 06/17/2020 14:17:56 No significant changes found Electronically Signed On 07-06-2020 7:33:50 CDT by Moe Amador [email or web address] <ELECTRONICALLY SIGNED> By: Moe Amador MD, FACC 07/06/20 0733 1429 1429 Moe Amador MD, [facility] /EPI
--- NOTE | 2020-07-06 07:34 | EKG ---
[facility] [place] [address] ELECTROCARDIOGRAM REPORT Name: MARY COLÓN Room #: 208-P ADM IN M.R.#: [id number] Admission: 07/05/20 Attend Phys: Prem Pantoja MD Discharge: Date of : 61 Report #: [id number] THIS REPORT FOR: cc: Bridger Oro MD, Tom E. MD Lundgren,Moe Frazier MD [facility] ~ THIS REPORT FOR: //name// [facility] ED Test Date: 2020-07-05 Test Time: 14:59:51 Pat Name: MARY COLÓN Department: Room: 208 Gender: M Medical Cash Poster: TERESA : 1965 Requested By: Volodymyr Trejo Order Number: [id number] MD: Moe Amador Measurements Intervals [place] Rate: 74 P: 3 [place]: 139 QRS: 40 QRSD: 94 T: 117 QT: 385 QTc: 428 Interpretive Statements Sinus rhythm T wave abnormality, consider lateral ischemia Minimal ST elevation, inferior leads Compared to ECG 07/05/2020 14:29:59 No significant changes Electronically Signed On 07-06-2020 7:34:10 CDT by Moe Amador [email or web address] <ELECTRONICALLY SIGNED> By: Moe Amador MD, FACC 07/06/20 0734 1459 1459 Moe Amador MD, [facility] /EPI
[2020-07-06 08:00] VITALS: BP 148/84
--- NOTE | 2020-07-06 10:10 | EXE ---
[facility] [place] [address] STRESS ECHOCARDIOGRAM Name: MARY COLÓN Room #: 208-P ADM IN M.R.#: [id number] Admission: 07/05/20 Attend Phys: Prem Pantoja MD Discharge: Date of : 61 Report #: [id number] THIS REPORT FOR: cc: Bridger Oro MD,Bridger Garcia,Fred Galindo MD [facility] ~ THIS REPORT FOR: //name// APPROVED REPORT Study performed: 07/06/2020 08:36:59 Exam: Stress Echocardiogram Indication: CAD , Chest pain Patient Location: In-Patient Stress Nurse: Florence Gaitan RN Room #: 208 Status: routine Ht: 5 ft 7 in HR: 70 bpm BP: 146/92 mmHg Rhythm: NSR Medical History Medical History: CAD s/p CABG, HTN, Diabetes Cardiac Risk Factors: HTN, DM Previous Cardiac Procedures: CABG Exercise History: Physically active Procedure The patient underwent an Exercise Stress Test using the Baljit Protocol. Blood pressure, heart rate, and EKG were monitored. An Echocardiogram was performed by commercial service technician in four stages in quad fashion. At peak stress, four selected images were obtained and placed side by side with resting images for comparison. Stress Test Details Stress Test: Exercise stress testing was performed using a Baljit protocol. HR Resting HR: 70 bpm Max Heart Rate (APMHR): 164 bpm Max HR Achieved: 131 bpm Target HR (85% APMHR): 139 bpm % of APMHR: 79 Recovery HR: 84 bpm [facility] [address] [place] [address] STRESS ECHOCARDIOGRAM Name: MARY COLÓN Room #: 208-P [facility] IN [facility]#: [id number] Admission: 07/05/20 Attend Phys: Prem Pantoja MD Discharge: Date of : 61 Report #: [id number] HR response to stress: Normal HR response to stress BP Resting BP: 146/92 mmHg Max BP: 200/80 mmHg Recovery BP: 156/80 mmHg BP response to stress: Normal blood pressure response to stress. ECG Clinical Reason for Termination: Maximal effort Exercise duration: 9 min 38 sec Highest Stage Achieved: Stage 4: 4.2 mph at 16% grade. Exercise capacity: 11.9 METs Overall Exercise Capacity for Age: Good Pre-Stress Echo The resting Echocardiogram showed normal left ventricular contractility with an estimated Ejection Fraction of about >55%. The resting echocardiogram demonstrated normal wall motion in all wall segments. Post-Stress Echo The stress Echocardiogram showed normal left ventricular contractility with an estimated Ejection Fraction of about 65-70%. Compared to rest, there were no stress-induced wall motion abnormalities. Clinical Mild Mitral regurgitation Conclusion Clinical Response: Non-ischemic Exercise Capacity: Good Stress ECG Response: Non-ischemic Stress Echo Images: Non-ischemic Other Information Study Quality: Good <ELECTRONICALLY SIGNED> By: Fred Garcia MD, FACC 07/06/20 1010 1010 1010 Fred Garcia MD, FAC /INF
[2020-07-06 11:31] VITALS: BP 148/84
--- NOTE | 2020-07-06 11:37 | NUR ---
piv and tele dc'd. discharge instructions reviewed with pt. no medication changes. informed pt that bystolic dose was not given this am d/t stress test and to take when he got home. pt daughter to come pick pt up. all questions answered.
--- NOTE | 2020-07-06 12:01 | NUR ---
pt escorted out to daughter's vehicle. all belongings with pt
== END 2020-07-06 12:02 | disposition home or self-care (01) | DRG 303 ==
LOC: ER 14:26 → EROBS 16:29 → 2N 16:29
PROVIDERS: Emergency Medicine; ADMIT Hospitalist; ATTEND Hospitalist
DX: I25.110 Atherosclerotic heart disease of native coronary artery with unstable angina pectoris (principal); I24.9 Acute ischemic heart disease, unspecified; I10 Essential (primary) hypertension; E78.5 Hyperlipidemia, unspecified; I65.21 Occlusion and stenosis of right carotid artery; E78.00 Pure hypercholesterolemia, unspecified; E11.51 Type 2 diabetes mellitus with diabetic peripheral angiopathy without gangrene; R07.89 Other chest pain; I34.0 Nonrheumatic mitral (valve) insufficiency; I25.2 Old myocardial infarction; Z95.5 Presence of coronary angioplasty implant and graft; Z95.1 Presence of aortocoronary bypass graft; Z79.4 Long term (current) use of insulin; Z79.899 Other long term (current) drug therapy; Z79.01 Long term (current) use of anticoagulants; Z87.891 Personal history of nicotine dependence; Z91.14 Patient's other noncompliance with medication regimen; Z86.73 Personal history of transient ischemic attack (TIA), and cerebral infarction without residual deficits
CPT/HCPCS: 10081

== ENCOUNTER → 2020-08-13 | Outpatient (CLI) | payer OTHER ==
--- NOTE | ~2020-08-13 | EEG ---
[facility] Sh[place] [address] ELECTROENCEPHALOGRAM Name: MARY COLÓN Room #: REG Naheed Canela#: [id number] Admission: 08/13/20 Attend Phys: Anastacia Cummings DO Discharge: Date of : 61 Report #: [id number] THIS REPORT FOR: //name// CC: Anastacia Cummings Bridger Oro UNKNOWN DATE OF SERVICE: 08/13/2020 FINDINGS: This patient is being evaluated for memory lapses. EEG was done by placing the electrode by standard 10-20 system of electrode placement. Both referential and sequential montages were used for recording. Background activity in this patient's EEG is about 9 Hz and 30 microvolts. A lot of this EEG was obtained when the patient was asleep and that is associated with bilaterally symmetrical sleep spindle and vertex sharp waves. Photic stimulation is unremarkable. Throughout the record, no active epileptiform activity was noticed. IMPRESSION: This patient's EEG is unremarkable. Thank you very much for this referral. By: 1245 [id number] Jeff Andrade MD /nt
== END ==
LOC: NEURO 09:51
PROVIDERS: ATTEND Psychiatry & Neurology Neurology
DX: R41.3 Other amnesia (principal)

== ENCOUNTER 2020-09-01 15:28 | Emergency (ER) | payer OTHER ==
[~2020-09-01] VITALS: Ht 170.2 cm; Wt 93.0 kg
[2020-09-01 16:10] LABS: ABSOLUTE NEUTROPHILS 2.3 thou/uL (1.4-8.2); EOSINOPHILS 3.6 % (0.0-3.0); HEMATOCRIT 40.4 % (42.0-52.0); HEMOGLOBIN 13.7 gm/dL (14.0-18.0); LYMPHOCYTES 34.7 % (24.0-44.0); MCH 27.6 pg (26.0-34.0); MCHC 33.8 g/dL (28.0-37.0); MCV 81.5 fL (80.0-100.0); MONOCYTES 15.4 % (1.0-8.0); PLATELET COUNT 216 thou/uL (150-400); POLYS 45.3 % (36.0-66.0); RBC 4.95 mil/uL (4.50-6.00); RDW 14.5 % (10.5-14.5); WBC 5.1 thou/uL (4.0-11.0)
--- NOTE | 2020-09-01 16:28 | EKG ---
[place] [address] [place] [address] ELECTROCARDIOGRAM REPORT Name: MARY COLÓN Room #: REG [facility] [id number] Admission: 09/01/20 Attend Phys: Discharge: Date of : 61 Report #: [id number] [facility] ED Test Date: 2020-09-01 Test Time: 15:48:51 Pat Name: MARY COLÓN Department: Room: Gender: M Director Of Trauma: francisco javier : 1965 Requested By: Murtaza Krause Order Number: [id number] MD: Vitaly May Measurements Intervals [place] Rate: 78 P: 6 [place]: 133 QRS: 26 QRSD: 97 T: 112 QT: 386 QTc: 440 Interpretive Statements Sinus rhythm Repol abnrm suggests ischemia, lateral leads ST elevation, consider inferior injury Compared to ECG 07/05/2020 14:59:51 No significant changes Electronically Signed On 09-01-2020 16:28:25 SUPERVISOR PAINTING by Vitaly May [email or web address] <ELECTRONICALLY SIGNED> By: Vitaly May MD, [facility] 09/01/20 1628 1548 1548 Vitaly May MD, FACC /EPI
[2020-09-01 16:47] LABS: ANION GAP 13 mmol/L (7-16); BUN 16 mg/dL (7-18); CALCIUM 9.2 mg/dL (8.5-10.1); CHLORIDE 101 mmol/L (98-107); CO2 23 mmol/L (21-32); CREATININE 1.1 mg/dL (0.7-1.3); GLUCOSE 301 mg/dL (74-106); POTASSIUM 3.9 mmol/L (3.5-5.1); SODIUM 137 mmol/L (136-145)
[2020-09-01 16:56] LABS: TROPONIN-I <0.06 ng/mL (<0.06)
[2020-09-01] MEDS ORDERED: TESSALON PERLE100 MG PO (17:06)
[2020-09-01 17:12] VITALS: BP 158/77
--- NOTE | 2020-09-02 07:19 | EKG ---
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: OSCAR : 1965 Requested By: Murtaza Krause Order Number: [id number] MD: Vitaly May Measurements Intervals [place] Rate: 73 P: 25 DC: 146 QRS: 15 QRSD: 98 T: 113 QT: 393 QTc: 433 Interpretive Statements Sinus rhythm ST elevation, consider inferior injury Compared to ECG 09/01/2020 15:48:51 No significant changes Electronically Signed On 09-02-2020 7:19:13 RADIOLOGIST CHIEF OF BREAST IMAGING by Vitaly May [email or web address] <ELECTRONICALLY SIGNED> By: Vitaly May MD, [facility] 09/02/20 0719 1637 1637 Vitaly May MD, FACC /EPI
== END 2020-09-01 17:14 | disposition home or self-care (01) ==
LOC: ER 15:28
PROVIDERS: Nurse Practitioner
DX: U07.1 COVID-19 (principal); J06.9 Acute upper respiratory infection, unspecified; E11.9 Type 2 diabetes mellitus without complications; I25.2 Old myocardial infarction; I10 Essential (primary) hypertension; E78.5 Hyperlipidemia, unspecified; Z95.5 Presence of coronary angioplasty implant and graft; Z79.899 Other long term (current) drug therapy; Z79.82 Long term (current) use of aspirin; Z87.891 Personal history of nicotine dependence

== ENCOUNTER 2020-09-26 16:01 | Emergency (ER) | payer OTHER ==
[~2020-09-26] VITALS: Ht 170.2 cm; Wt 93.4 kg
[2020-09-26 16:20] VITALS: BP 175/94
[2020-09-26] MEDS ORDERED: KEFLEX500 M1 PO (16:42)
== END 2020-09-26 18:55 | disposition home or self-care (01) ==
LOC: ER 16:01
DX: L02.212 Cutaneous abscess of back [any part, except buttock and flank] (principal); E11.9 Type 2 diabetes mellitus without complications; I25.2 Old myocardial infarction; I10 Essential (primary) hypertension; Z87.891 Personal history of nicotine dependence; Z79.899 Other long term (current) drug therapy; Z79.82 Long term (current) use of aspirin; Z79.4 Long term (current) use of insulin

== ENCOUNTER 2020-10-06 13:11 | Emergency (ER) | payer OTHER ==
[~2020-10-06] VITALS: Ht 170.2 cm; Wt 93.0 kg
[~2020-10-06 13:11] MED LIST changes: +KEFLEX500 M1 PO
[2020-10-06 15:32] LABS: CALCIUM 9.5 mg/dL (8.5-10.1); POTASSIUM 3.9 mmol/L (3.5-5.1)
[2020-10-06 15:37] LABS: ALBUMIN 3.6 g/dL (3.4-5.0); TOTAL BILIRUBIN 0.3 mg/dL (0.2-1.0); TOTAL PROTEIN 7.1 g/dL (6.4-8.2)
[2020-10-06 15:53] LABS: HEMATOCRIT 41.7 % (42.0-52.0); HEMOGLOBIN 14.3 gm/dL (14.0-18.0); MCHC 34.3 g/dL (28.0-37.0); MCV 81.8 fL (80.0-100.0); RBC 5.09 mil/uL (4.50-6.00); RDW 14.6 % (10.5-14.5); WBC 7.1 thou/uL (4.0-11.0)
[2020-10-06 16:57] VITALS: BP 156/98
--- NOTE | 2020-10-07 07:18 | EKG ---
[facility] [address] [place] [address] ELECTROCARDIOGRAM REPORT Name: MARY COLÓN [facility]: [facility] [id number] Admission: 10/06/20 Attend Phys: Discharge: 10/06/20 Date of : 61 Report #: [id number] [facility] ED Test Date: 2020-10-06 Test Time: 13:22:57 Pat Name: MARY COLÓN Department: Room: Gender: M Cream Dumper: KF : 1965 Requested By: Ana María Deshpande Order Number: [id number] MD: Vitaly May Measurements Intervals [place] Rate: 85 P: 15 [place]: 121 QRS: 29 QRSD: 92 T: 113 QT: 367 QTc: 437 Interpretive Statements Sinus rhythm Minimal ST elevation, inferior leads Lateral leads are also involved Baseline wander in lead(s) I,III,aVL,V2 Compared to ECG 09/01/2020 16:37:51 No significant changes Electronically Signed On 10-07-2020 7:18:27 AUTO DAMAGE ADJUSTER by Vitaly May [email or web address] <ELECTRONICALLY SIGNED> By: Vitaly May MD, [facility] 10/07/20 0718 132 1322 Vitaly May MD, FAC /EPI
== END 2020-10-06 16:57 | disposition home or self-care (01) ==
LOC: ER 13:11
PROVIDERS: Nurse Practitioner
DX: R06.00 Dyspnea, unspecified (principal); R07.89 Other chest pain; I25.2 Old myocardial infarction; I10 Essential (primary) hypertension; E78.5 Hyperlipidemia, unspecified; E11.9 Type 2 diabetes mellitus without complications; Z95.5 Presence of coronary angioplasty implant and graft; Z79.2 Long term (current) use of antibiotics; Z79.899 Other long term (current) drug therapy; Z79.4 Long term (current) use of insulin; Z87.891 Personal history of nicotine dependence

== ENCOUNTER 2020-10-28 14:01 | Emergency (ER) | payer OTHER ==
[~2020-10-28] VITALS: Ht 170.2 cm; Wt 93.0 kg
[2020-10-28 14:37] LABS: ABSOLUTE NEUTROPHILS 8.3 thou/uL (1.4-8.2); BASOPHILS 0.5 % (0.0-2.0); EOSINOPHILS 0.1 % (0.0-3.0); HEMOGLOBIN 13.9 gm/dL (14.0-18.0); LYMPHOCYTES 11.5 % (24.0-44.0); MCH 27.3 pg (26.0-34.0); MCV 82.5 fL (80.0-100.0); MONOCYTES 4.3 % (1.0-8.0); PLATELET COUNT 302 thou/uL (150-400); POLYS 83.6 % (36.0-66.0); RBC 5.09 mil/uL (4.50-6.00); RDW 14.9 % (10.5-14.5); WBC 9.9 thou/uL (4.0-11.0)
[2020-10-28 14:47] LABS: ANION GAP 14 mmol/L (7-16); BUN 21 mg/dL (7-18); CALCIUM 9.2 mg/dL (8.5-10.1); CHLORIDE 97 mmol/L (98-107); CO2 21 mmol/L (21-32); CREATININE 1.4 mg/dL (0.7-1.3); GLUCOSE 374 mg/dL (74-106); POTASSIUM 4.2 mmol/L (3.5-5.1); SODIUM 132 mmol/L (136-145)
[2020-10-28 14:55] LABS: ALBUMIN 3.6 g/dL (3.4-5.0); DIRECT BILIRUBIN < 0.1 mg/dL (<0.1-0.2); LIPASE 181 U/L (73-393); SGOT 20 U/L (15-37); SGPT 36 U/L (30-65); TOTAL BILIRUBIN 0.3 mg/dL (0.2-1.0); TOTAL PROTEIN 7.1 g/dL (6.4-8.2); TROPONIN-I <0.06 ng/mL (<0.06)
--- NOTE | 2020-10-28 16:13 | EKG ---
[place] [address] [facility] [place] [address] ELECTROCARDIOGRAM REPORT Name: MARY COLÓN Room #: REG [facility] [id number] Admission: 10/28/20 Attend Phys: Discharge: Date of : 61 Report #: [id number] [facility] ED Test Date: 2020-10-28 Test Time: 15:37:53 Pat Name: MARY COLÓN Department: Room: Gender: M Automotive Center Manager: francisco javier : 1965 Requested By: Kilo Corado Order Number: [id number] MD: Vitaly May Measurements Intervals [place] Rate: 83 P: 11 [place]: 132 QRS: 12 QRSD: 95 T: 124 QT: 388 QTc: 456 Interpretive Statements Sinus rhythm Repol abnrm suggests ischemia, lateral leads Compared to ECG 10/06/2020 13:22:57 Early repolarization now present Possible ischemia now present ST (T wave) deviation no longer present Electronically Signed On 10-28-2020 16:13:32 SOFTWARE IMPLEMENTATION PROJECT MANAGER by Vitaly May [email or web address] <ELECTRONICALLY SIGNED> By: Vitaly May MD, [facility] 10/28/20 1613 36 36 Vitaly May MD, FACC /EPI
[2020-10-28 16:35] VITALS: BP 170/95
== END 2020-10-28 16:35 | disposition home or self-care (01) ==
LOC: ER 14:01
PROVIDERS: Emergency Medicine
DX: G43.909 Migraine, unspecified, not intractable, without status migrainosus (principal); E86.0 Dehydration; R20.2 Paresthesia of skin; E11.65 Type 2 diabetes mellitus with hyperglycemia; I10 Essential (primary) hypertension; I25.2 Old myocardial infarction; E78.5 Hyperlipidemia, unspecified; Z95.1 Presence of aortocoronary bypass graft; Z79.899 Other long term (current) drug therapy; Z87.891 Personal history of nicotine dependence; Z79.82 Long term (current) use of aspirin; Z79.4 Long term (current) use of insulin; Z79.01 Long term (current) use of anticoagulants

== ENCOUNTER 2020-11-11 13:08 | Inpatient (IN) | payer OTHER ==
[~2020-11-11] VITALS: Ht 170.2 cm; Wt 96.3 kg
[2020-11-11 13:08] VITALS: BP 160/93
[2020-11-11 13:37] LABS: ABSOLUTE NEUTROPHILS 11.2 thou/uL (1.4-8.2); BASOPHILS 0.5 % (0.0-2.0); EOSINOPHILS 0.1 % (0.0-3.0); HEMATOCRIT 42.9 % (42.0-52.0); HEMOGLOBIN 14.1 gm/dL (14.0-18.0); LYMPHOCYTES 7.9 % (24.0-44.0); MCH 27.5 pg (26.0-34.0); MCHC 32.8 g/dL (28.0-37.0); MCV 83.8 fL (80.0-100.0); MONOCYTES 2.6 % (1.0-8.0); PLATELET COUNT 257 thou/uL (150-400); POLYS 88.9 % (36.0-66.0); RBC 5.12 mil/uL (4.50-6.00); RDW 14.9 % (10.5-14.5); WBC 12.6 thou/uL (4.0-11.0)
[2020-11-11 13:46] LABS: CALCIUM 9.3 mg/dL (8.5-10.1); CREATININE 1.1 mg/dL (0.7-1.3); POTASSIUM 4.4 mmol/L (3.5-5.1)
[2020-11-11 13:52] LABS: APTT 21.9 Seconds (24.5-32.8); PROTIME 10.4 Seconds (9.3-11.4)
[2020-11-11 16:31] VITALS: BP 171/130
[2020-11-11 16:48] VITALS: BP 163/90
[2020-11-11 17:10] VITALS: BP 164/97
--- NOTE | 2020-11-11 17:44 | EKG ---
[address] [address] ELECTROCARDIOGRAM REPORT Name: MARY COLÓN Room #: 208-P ADM IN M.R.#: [id number] Admission: 11/11/20 Attend Phys: Tremaine Lomax MD Discharge: Date of : 61 Report #: [id number] [facility] ED Test Date: 2020-11-11 Test Time: 13:22:09 Pat Name: MARY COLÓN Department: Room: 208 Gender: M Graphotype Operator: ASHLEY : 1965 Requested By: Fermín Zavala Order Number: [id number] MD: Jose Aquino Measurements Intervals [place] Rate: 84 P: 40 [place]: 128 QRS: 15 QRSD: 91 T: 117 QT: 367 QTc: 434 Interpretive Statements Sinus rhythm Compared to ECG 10/28/2020 15:37:53 Electronically Signed On 11-11-2020 17:43:58 COMPOUNDING SCALER by Jose Aquino [email or web address] <ELECTRONICALLY SIGNED> By: Jose Aquino MD 11/11/20 1743 1322 1322 oJse Aquino MD /AILYN
--- NOTE | 2020-11-11 17:54 | NUR ---
ASSUMED CARE OF PT AT APPROX 1700 FROM ER D/T STROKE LIKE SYMPTOMS. ADMISSION COMPLETE. PT SETTLED IN ROOM. PT A&OX4, NO C/O PAIN. NO C/O WEAKNESS OR DISTRESS AND NONE NOTED. ORDERS IMPLEMENTED. WILL CONTINUE TO MONITOR FOR CHANGE AND FOLLOW POC.
[2020-11-11 20:08] VITALS: BP 170/86
[2020-11-12 00:33] VITALS: BP 179/95
[2020-11-12 00:59] LABS: URINE BILIRUBIN NEGATIVE (Negative); URINE BLOOD NEGATIVE (Negative); URINE CLARITY CLEAR; URINE COLOR YELLOW; URINE GLUCOSE-RANDOM* 3+ (Negative); URINE KETONES NEGATIVE (Negative); URINE LEUKOCYTES-REFLEX NEGATIVE (Negative); URINE NITRITE-REFLEX NEGATIVE (Negative); URINE PROTEIN (DIPSTICK) NEGATIVE (Negative); URINE UROBILINOGEN 0.2 E.U./dl (0.2-1.0)
[2020-11-12] MEDS ORDERED: PLAVIX 75 MG TA75 MG PO (03:40)
[2020-11-12 04:27] VITALS: BP 153/87
[2020-11-12 05:23] LABS: ABSOLUTE NEUTROPHILS 7.1 thou/uL (1.4-8.2); BASOPHILS 0.7 % (0.0-2.0); EOSINOPHILS 1.5 % (0.0-3.0); HEMATOCRIT 42.1 % (42.0-52.0); HEMOGLOBIN 14.1 gm/dL (14.0-18.0); LYMPHOCYTES 28.4 % (24.0-44.0); MCH 27.9 pg (26.0-34.0); MCHC 33.4 g/dL (28.0-37.0); MCV 83.5 fL (80.0-100.0); MONOCYTES 7.6 % (1.0-8.0); PLATELET COUNT 212 thou/uL (150-400); POLYS 61.8 % (36.0-66.0); RBC 5.04 mil/uL (4.50-6.00); RDW 15.1 % (10.5-14.5); WBC 11.4 thou/uL (4.0-11.0)
[2020-11-12 05:54] LABS: CALCIUM 8.7 mg/dL (8.5-10.1); CREATININE 0.9 mg/dL (0.7-1.3); MAGNESIUM 2.1 mg/dL (1.8-2.4); POTASSIUM 3.7 mmol/L (3.5-5.1)
[2020-11-12 05:55] LABS: CHOLESTEROL 171 mg/dL (<200); HDL CHOLESTEROL 77 mg/dL (>40); LDL CHOLESTEROL 69 mg/dL (<100); TC:HDL 2.2 Ratio (Not establshd); TRIGLYCERIDE 129 mg/dL (<150); VLDL 26 mg/dL (<40)
[2020-11-12 05:56] LABS: SERUM ASSESSMENT Clear
[2020-11-12 07:30] VITALS: BP 158/90
--- NOTE | 2020-11-12 09:54 | 2DMMODE ---
[facility] Shaina [place] [address] 2 D/M-MODE ECHOCARDIOGRAM Name: MARY COLÓN Room #: 208-P ADM IN M.R.#: [id number] Admission: 11/11/20 Attend Phys: Tremaine Lomax MD Discharge: Date of : 61 Report #: [id number] THIS REPORT FOR: cc: Bridger Oro MD, Tom E. MD Lammoglia, Francisco J. MD ~ APPROVED REPORT Study performed: 11/12/2020 07:48:28 EXAM: Comprehensive 2D, Doppler, and color-flow Echocardiogram Patient Location: Bedside Room #: 208 Status: routine BSA: 2.08 HR: 67 bpm BP: 170/130 mmHg Rhythm: NSR Other Information Study Quality: Good Indications CVA/TIA Diabetes CAD Hypertension/HDD Echo Enhancing Agent Indication: Rule out Shunt Agent(s) / Amount(s) Used: Agitated Saline 7 cc 2D Dimensions RVDd: 27.14 mm IVSd: 9.59 (7-11mm) LVOT Diam: 21.36 (18-24mm) LVDd: 58.07 mm PWd: 10.92 (7-11mm) Ascending Ao: 39.71 (22-36mm) LVDs: 44.45 (25-40mm) Left Atrium: 50.41 (27-40mm) Aortic Root: 35.27 mm IVC: 24.00 mm Volumes Left Atrial Volume (Systole) Single Plane 4CH: 67.93 mL Single Plane 2CH: 78.09 mL [facility] [address] [address] 2 D/M-MODE ECHOCARDIOGRAM Name: MARY COLÓN Room #: 208-P [facility] IN .R.#: [id number] Admission: 11/11/20 Attend Phys: Tremaine Lomax, Discharge: Date of : 61 Report #: [id number] ESV Index: 38.00 mL/m2 Aortic Valve AoV Peak Alf.: 0.84 m/s AO Peak Gr.: 2.82 mmHg LVOT Max P.14 mmHg LVOT Max V: 0.73 m/s SHUKRI Vmax: 3.12 cm2 Mitral Valve E/A Ratio: 1.2 MV Decel. Time: 193.67 ms MV E Max Alf.: 0.89 m/s MV A Alf.: 0.73 m/s MV PHT: 56.17 ms IVRT: 92.27 ms Pulmonary Valve PV Peak Alf.: 0.68 m/s PV Peak Gr.: 1.84 mmHg Pulmonary Vein P Vein S: 0.46 m/s P Vein A: 0.31 m/s P Vein D: 0.63 m/s P Vein A Dur.: 170.7 msec P Vein S/D Ratio: 0.73 Tricuspid Valve TR Peak Alf.: 1.88 m/s TR Peak Gr.: 14.16 mmHg Left Ventricle The left ventricle is normal size. There is normal LV segmental wall motion. There is normal left ventricular wall thickness. The left ventricular systolic function is normal. The left ventricular ejection fraction is within the normal range. LVEF is 55-60%. The left ventricular diastolic function is normal. Right Ventricle The right ventricle is normal size. The right ventricular systolic function is normal. Atria Left atrium is dilated. The right atrium size is normal. Aortic Valve The aortic valve is normal in structure. No aortic regurgitation is present. There is no aortic valvular stenosis. [facility] [address] [place] [address] 2 D/M-MODE ECHOCARDIOGRAM Name: MARY COLÓN Room #: 208-P [facility] IN .R.#: [id number] Admission: 11/11/20 Attend Phys: Tremaine Lomax, Discharge: Date of : 61 Report #: [id number] Mitral Valve The mitral valve is normal in structure. Mild mitral regurgitation. No evidence of mitral valve stenosis. Tricuspid Valve The tricuspid valve is normal in structure. There is no tricuspid valve regurgitation noted. Pulmonic Valve The pulmonary valve is normal in structure. There is no pulmonic valvular regurgitation. Great Vessels The aortic root is normal in size. IVC is dilated and collapses >50% with inspiration. Pericardium There is no pericardial effusion. <Conclusion> The left ventricle is normal size. LVEF is 55-60%. There is normal LV segmental wall motion. Left atrium is dilated. The aortic valve is normal in structure. The mitral valve is normal in structure. Mild mitral regurgitation. The tricuspid valve is normal in structure. The pulmonary valve is normal in structure. There is no pericardial effusion. <ELECTRONICALLY SIGNED> By: Zacarias Prince MD 11/12/20 0953 0953 0953 Zacarias Prince MD /INF
--- NOTE | 2020-11-12 10:04 | NUR ---
CONSULT [id number] WAS COMPLETED BY THIS BEAUTY COUNSELOR. PATIENT APPRECIAITED THE VISIT. WE DID LIFE REVIED AND DISCUSSED THE HEALTH CHALLENGES HE HAS ENCOUNTERED AND SURVIVED. WE DISCUSSED HIS FAMILY AND THEIR GREAT SUPPORT. WE CONCLUDED IN PRAYER.
[2020-11-12] MEDS ORDERED: LIPITOR80 MG PO (10:15)
[2020-11-12] MEDS ORDERED: AMLODIPINE BESY10 MG PO (10:16)
[2020-11-12] MEDS ORDERED: FARXIGA10 MG PO (10:22)
[2020-11-12] MEDS ORDERED: FUROSEMIDE 20 M20 MG PO (10:22)
[2020-11-12] MEDS ORDERED: BUSPIRONE HCL7.5 MG PO (10:22)
[2020-11-12] MEDS ORDERED: SUPER THERAVIT1 EACH PO (10:52)
[2020-11-12 15:25] VITALS: BP 143/82
[2020-11-12 16:03] VITALS: BP 143/82
--- NOTE | 2020-11-12 18:01 | NUR ---
ASSUMED CARE OF PT AT SHIFT CHANGE. ASSESSMENTS CHARTED. MEDS GIVEN PER NOV. PT A&OX4, NO C/O PAIN OR DISTRESS. SLIGHT L SIDED WEAKNESS NOTED BY PT, BUT NOT AN IMPAIRMENT. DISCHARGE ORDERS AND INSTRUCTIONS COMPLETE. IV AND TELE DC'D. THIS NURSE WALKED PT TO ER ENTRANCE TO WAITING IN CAR.
[2020-11-12 20:33] LABS: GLYCOHEMOGLOBIN (HGB A1C) 11.1 % (4.8-5.6)
--- NOTE | 2020-11-13 10:53 | HC ---
[facility] [place] [address] CONSULTATION Name: MARY COLÓNNE Room #: 208-P [facility] IN M.R.#: [id number] Admission: 11/11/20 Attend Phys: Tremaine Lomax MD Discharge: 11/12/20 Date of : 61 Report #: [id number] THIS REPORT FOR: cc: Bridger Oro MD, Tom E. MD Khosla,Jeff Hernandez MD ~ DATE OF SERVICE: 11/11/2020 HISTORY OF PRESENT ILLNESS: This is a 54-year-old male patient who was seen by me for the left-sided weakness. This patient had an acute onset of left-sided weakness. Dictation Ends Here. <ELECTRONICALLY SIGNED> By: Jeff Andrade MD 11/13/20 1053 192 194 Jeff Andrade MD /nt
--- NOTE | 2020-11-13 10:53 | HC ---
[facility] [place] [address] CONSULTATION Name: MARY COLÓN Room #: 208-P [facility] IN M.R.#: [id number] Admission: 11/11/20 Attend Phys: Tremaine Lomax MD Discharge: 11/12/20 Date of : 61 Report #: [id number] THIS REPORT FOR: cc: Bridger Oro MD, Tom E. MD Khosla,Jeff Hernandez MD ~ DATE OF SERVICE: 11/11/2020 HISTORY OF PRESENT ILLNESS: A 54-year-old male patient who was seen by me for the left sided weakness. The patient had acute onset of it. When I saw him in the Emergency Room, he said he is feeling better and he is much improved. In fact, he was able to stand up for me and he said previously he was not able to even put the weight on it or even move it. I reviewed his extensive records. This patient had been admitted multiple times and had multiple CT angiograms. Symptoms have been similar. Some of the records indicate that he has been to other hospital with chest pain and multiple other symptoms and no cause was found, but this patient does have a pretty significant hypercholesterolemia. He apparently is on a combination of aspirin and Plavix. He has a prior history of drug abuse. REVIEW OF SYSTEMS: A 14-point review of system was carried out. The patient tells me he had TIA. He does have a history of hyperlipidemia. He has a history of coronary artery disease. He has a history of hypertension and he has a history of diabetes. He was here in May. Carotid was unremarkable at that time. He has been admitted with numerous symptoms in the past that include diabetes, migraine and sinus congestion, which he says he is having lumbar sprain, hyperglycemia, and some cluster headache. PAST MEDICAL HISTORY: Positive for similar symptoms for which no cause was found. He received even TPA one time. FAMILY HISTORY: Negative for any early stroke. SOCIAL HISTORY: He has a history of smoking in the past. PHYSICAL EXAMINATION: Indicate he is alert. He is responsive. He is able to follow simple commands. His cranial nerve examination was unremarkable. When I saw him, he was able to raise the left arm against gravity and resistance and similarly the left leg. I __, he did have some trouble, but strength estimated to be about 4/5, but I do not know about his effort. He says the sensation looks somewhat different on the left side, but he can feel it. He did not appear to have any cerebellar sign. There is no carotid bruit. There is no meningeal sign. His blood pressure was somewhat on the higher side 160-170 systolic. That is where it has stayed since then. His pulse is 70. Temperature is normal. [facility] [address] [place] [address] CONSULTATION Name: MARY COLÓN Room #: 208-P [facility] IN M.R.#: [id number] Admission: 11/11/20 Attend Phys: Tremaine Lomax MD Discharge: 11/12/20 Date of : 61 Report #: [id number] LABORATORY DATA: I reviewed his CT and CT angiogram. He does appear to have vertebral artery stenosis. IMPRESSION: Difficult to tell. The patient has some weakness on the left side, but it was very mild. I discussed with them TPA versus managing conservatively. TPA is not approved for minor stroke, assuming it is a minor stroke, but it was used pretty extensively at one time, but a recent study has questioned that use because many of these patients becomes better by itself. We gave him fluid. He started his aspirin and Plavix. I talked to the night nurses, who is going to take care of him and told them to call me in case any worsening noticed. The patient decided that he does not want TPA. He was becoming better rapidly and I think diagnosis need to be established with some more certainty whether it is a hemiplegic migraine or a real stroke, but he does have stroke risk factors. So, I am going to get an MRI done. He is already on fluids. We will see him back tomorrow. Thank you very much for this referral. <ELECTRONICALLY SIGNED> By: Jeff Andrade MD 11/13/20 1053 Jeff Andrade MD /nt
== END 2020-11-12 16:29 | disposition home or self-care (01) | DRG 69 ==
LOC: ER 13:08 → 2N 14:36 → EROBS 14:36 → 2N 16:49
PROVIDERS: Emergency Medicine; Nurse Practitioner; ADMIT Internal Medicine; ATTEND Internal Medicine
DX: G45.9 Transient cerebral ischemic attack, unspecified (principal); G81.94 Hemiplegia, unspecified affecting left nondominant side; I25.110 Atherosclerotic heart disease of native coronary artery with unstable angina pectoris; I10 Essential (primary) hypertension; E78.5 Hyperlipidemia, unspecified; F12.90 Cannabis use, unspecified, uncomplicated; G43.909 Migraine, unspecified, not intractable, without status migrainosus; E11.51 Type 2 diabetes mellitus with diabetic peripheral angiopathy without gangrene; I25.2 Old myocardial infarction; Z95.1 Presence of aortocoronary bypass graft; Z95.5 Presence of coronary angioplasty implant and graft; Z79.4 Long term (current) use of insulin; Z79.899 Other long term (current) drug therapy; Z79.82 Long term (current) use of aspirin; Z87.891 Personal history of nicotine dependence; Z28.21 Immunization not carried out because of patient refusal
CPT/HCPCS: 10081

== ENCOUNTER 2021-01-20 19:01 | Emergency (ER) | payer OTHER ==
[~2021-01-20] VITALS: Ht 170.2 cm; Wt 93.0 kg
[~2021-01-20 19:01] MED LIST changes: +AMLODIPINE BESY10 MG PO; +BUSPIRONE HCL7.5 MG PO; +FARXIGA10 MG PO; +FUROSEMIDE 20 M20 MG PO; +LIPITOR80 MG PO; +SUPER THERAVIT1 EACH PO
[2021-01-20] MEDS ORDERED: ULTRAM 50MG TAB50 MG PO (21:00)
[2021-01-20 21:13] VITALS: BP 152/88
== END 2021-01-20 21:13 | disposition home or self-care (01) ==
LOC: ER 19:01
DX: M25.561 Pain in right knee (principal); M79.651 Pain in right thigh; M79.661 Pain in right lower leg; M79.89 Other specified soft tissue disorders; E11.9 Type 2 diabetes mellitus without complications; I25.2 Old myocardial infarction; I25.10 Atherosclerotic heart disease of native coronary artery without angina pectoris; I10 Essential (primary) hypertension; E78.5 Hyperlipidemia, unspecified; E11.51 Type 2 diabetes mellitus with diabetic peripheral angiopathy without gangrene; Z86.73 Personal history of transient ischemic attack (TIA), and cerebral infarction without residual deficits; Z95.5 Presence of coronary angioplasty implant and graft; Z87.891 Personal history of nicotine dependence; Z86.16 Personal history of COVID-19; Z79.899 Other long term (current) drug therapy; Z79.4 Long term (current) use of insulin; Z79.82 Long term (current) use of aspirin

== ENCOUNTER 2021-02-17 09:28 | Emergency (ER) | payer OTHER ==
[~2021-02-17] VITALS: Ht 172.7 cm; Wt 93.0 kg
[~2021-02-17 09:28] MED LIST changes: +ULTRAM 50MG TAB50 MG PO
--- NOTE | 2021-02-17 10:20 | EKG ---
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 PALOMINO : 1965 Requested By: Kilo Corado Order Number: [id number] MD: Vitaly May Measurements Intervals [place] Rate: 81 P: 11 [place]: 127 QRS: 24 QRSD: 94 T: 126 QT: 396 QTc: 460 Interpretive Statements Sinus rhythm Repol abnrm suggests ischemia, lateral leads Minimal ST elevation, inferior leads Compared to ECG 11/11/2020 13:22:09 Early repolarization now present Possible ischemia now present ST (T wave) deviation now present Electronically Signed On 02-17-2021 10:20:38 CDT by Vitaly May [email or web address] <ELECTRONICALLY SIGNED> By: Vitaly May MD, [facility] 02/17/210 7 7 Vitaly May MD, [facility] /EPI
[2021-02-17 11:01] LABS: ABSOLUTE NEUTROPHILS 3.6 thou/uL (1.4-8.2); HEMATOCRIT 41.1 % (42.0-52.0); HEMOGLOBIN 13.9 gm/dL (14.0-18.0); LYMPHOCYTES 20.3 % (24.0-44.0); MCH 27.4 pg (26.0-34.0); MCHC 33.7 g/dL (28.0-37.0); MCV 81.5 fL (80.0-100.0); MONOCYTES 16.8 % (1.0-8.0); PLATELET COUNT 219 thou/uL (150-400); POLYS 57.9 % (36.0-66.0); RBC 5.05 mil/uL (4.50-6.00); RDW 14.7 % (10.5-14.5); WBC 6.2 thou/uL (4.0-11.0)
[2021-02-17 11:17] LABS: ANION GAP 8 mmol/L (7-16); BUN 11 mg/dL (7-18); CALCIUM 8.6 mg/dL (8.5-10.1); CHLORIDE 101 mmol/L (98-107); CO2 27 mmol/L (21-32); CREATININE 0.8 mg/dL (0.7-1.3); GLUCOSE 248 mg/dL (74-106); POTASSIUM 3.6 mmol/L (3.5-5.1); SODIUM 136 mmol/L (136-145)
[2021-02-17 11:27] LABS: ALBUMIN 2.9 g/dL (3.4-5.0); AMYLASE 41 U/L (25-115); DIRECT BILIRUBIN < 0.1 mg/dL (<0.1-0.2); LIPASE 98 U/L (73-393); PHOSPHORUS 3.4 mg/dL (2.5-4.9); SGOT 16 U/L (15-37); SGPT 20 U/L (30-65); TOTAL BILIRUBIN 0.5 mg/dL (0.2-1.0); TOTAL PROTEIN 6.7 g/dL (6.4-8.2); TROPONIN-I <0.06 ng/mL (<0.06)
[2021-02-17] MEDS ORDERED: PERCOCET 5-3251 EACH PO (13:29)
[2021-02-17] MEDS ORDERED: PRINIVIL20 M1 PO (13:29)
[2021-02-17 14:19] VITALS: BP 175/93
== END 2021-02-17 14:19 | disposition home or self-care (01) ==
LOC: ER 09:28
PROVIDERS: Emergency Medicine
DX: R07.89 Other chest pain (principal); Z20.822 Contact with and (suspected) exposure to COVID-19; I10 Essential (primary) hypertension; E11.9 Type 2 diabetes mellitus without complications; I25.2 Old myocardial infarction; E78.5 Hyperlipidemia, unspecified; Z86.73 Personal history of transient ischemic attack (TIA), and cerebral infarction without residual deficits; Z79.82 Long term (current) use of aspirin; Z87.891 Personal history of nicotine dependence

== ENCOUNTER 2021-03-25 13:04 | Emergency (ER) | payer OTHER ==
[~2021-03-25] VITALS: Ht 170.2 cm; Wt 90.7 kg
[~2021-03-25 13:04] MED LIST changes: +PRINIVIL20 M1 PO
[2021-03-25 15:11] LABS: ABSOLUTE NEUTROPHILS 5.1 thou/uL (1.4-8.2); BASOPHILS 1.4 % (0.0-2.0); EOSINOPHILS 3.9 % (0.0-3.0); HEMATOCRIT 42.5 % (42.0-52.0); HEMOGLOBIN 14.5 gm/dL (14.0-18.0); LYMPHOCYTES 22.5 % (24.0-44.0); MCH 27.7 pg (26.0-34.0); MCHC 34.2 g/dL (28.0-37.0); MONOCYTES 10.2 % (1.0-8.0); PLATELET COUNT 283 thou/uL (150-400); RBC 5.25 mil/uL (4.50-6.00); RDW 14.2 % (10.5-14.5); WBC 8.2 thou/uL (4.0-11.0)
[2021-03-25 15:23] LABS: ANION GAP 6 mmol/L (7-16); BUN 19 mg/dL (7-18); CALCIUM 8.9 mg/dL (8.5-10.1); CHLORIDE 101 mmol/L (98-107); CO2 28 mmol/L (21-32); GLUCOSE 326 mg/dL (74-106); POTASSIUM 3.9 mmol/L (3.5-5.1); SODIUM 135 mmol/L (136-145)
[2021-03-25 15:33] LABS: ALBUMIN 3.2 g/dL (3.4-5.0); SGOT 17 U/L (15-37); SGPT 23 U/L (16-63); TOTAL BILIRUBIN 0.3 mg/dL (0.2-1.0); TROPONIN-I <0.06 ng/mL (<0.06)
[2021-03-25] MEDS ORDERED: METFORMIN HCL500 M3 PO (16:41)
[2021-03-25] MEDS ORDERED: NORVASC10 MG PO (16:41)
[2021-03-25] MEDS ORDERED: LIPITOR40 MG PO (16:41)
[2021-03-25] MEDS ORDERED: PLAVIX 75 MG TA75 MG PO (16:41)
[2021-03-25] MEDS ORDERED: FUROSEMIDE 20 M20 MG PO (16:41)
[2021-03-25 16:46] VITALS: BP 181/114
--- NOTE | 2021-03-29 07:37 | EKG ---
[place] [address] [address] 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 : 1965 Requested By: Venus Hogue Order Number: [id number] MD: Vitaly May Measurements Intervals [place] Rate: 83 P: 33 [place]: 124 QRS: 39 QRSD: 92 T: 133 QT: 395 QTc: 465 Interpretive Statements Sinus rhythm Probable left atrial enlargement LVH with secondary repolarization abnormality Electronically Signed On 03-25-2021 16:51:17 CDT by Vitaly May Compared to ECG 02/17/2021 09:38:58 Left ventricular hypertrophy now present Possible ischemia no longer present ST (T wave) deviation no longer present Electronically Signed On 03-29-2021 7:37:43 CDT by Vitaly May [email or web address] <ELECTRONICALLY SIGNED> By: Vitaly May MD, FAC 03/29/21 0737 1315 1315 Vitaly May MD, FAC /EPI
== END 2021-03-25 16:51 | disposition home or self-care (01) ==
LOC: ER 13:04
PROVIDERS: Nurse Practitioner Family
DX: I10 Essential (primary) hypertension (principal); R05 Cough; E11.9 Type 2 diabetes mellitus without complications; R06.00 Dyspnea, unspecified; I25.10 Atherosclerotic heart disease of native coronary artery without angina pectoris; Z79.899 Other long term (current) drug therapy; Z20.822 Contact with and (suspected) exposure to COVID-19

== ENCOUNTER 2021-05-02 19:47 | Emergency (ER) | payer OTHER ==
[~2021-05-02] VITALS: Ht 170.2 cm; Wt 88.5 kg
[~2021-05-02 19:47] MED LIST changes: +METFORMIN HCL500 M3 PO; +NORVASC10 MG PO
[2021-05-02 21:22] LABS: HEMATOCRIT 42.9 % (42.0-52.0); HEMOGLOBIN 14.8 gm/dL (14.0-18.0); MCH 27.9 pg (26.0-34.0); MCHC 34.6 g/dL (28.0-37.0); MCV 80.6 fL (80.0-100.0); RBC 5.33 mil/uL (4.50-6.00); RDW 14.1 % (10.5-14.5); WBC 6.9 thou/uL (4.0-11.0)
[2021-05-02 21:36] LABS: APTT 22.6 Seconds (24.5-32.8); INR 0.94; PROTIME 10.3 Seconds (10.5-12.1)
[2021-05-02 21:43] LABS: CALCIUM 9.1 mg/dL (8.5-10.1); CREATININE 1.2 mg/dL (0.7-1.3)
[2021-05-02 21:51] LABS: ALBUMIN 3.2 g/dL (3.4-5.0); TOTAL BILIRUBIN 0.3 mg/dL (0.2-1.0)
[2021-05-02 23:31] VITALS: BP 171/94
--- NOTE | 2021-05-03 07:31 | EKG ---
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 : 1965 Requested By: Venus Hogue Order Number: [id number] MD: Vitaly May Measurements Intervals [place] Rate: 86 P: 34 [place]: 130 QRS: 38 QRSD: 95 T: -77 QT: 344 QTc: 412 Interpretive Statements Sinus rhythm Repol abnrm suggests ischemia, inferior leads Baseline wander in lead(s) II,III,aVF Compared to ECG 03/25/2021 13:15:34 Possible ischemia now present Left ventricular hypertrophy no longer present Electronically Signed On 05-03-2021 7:30:57 CDT by Vitaly May [email or web address] <ELECTRONICALLY SIGNED> By: Vitaly May MD, [facility] 05/03/2130 31 31 Vitaly May MD, [facility] /EPI
== END 2021-05-02 23:34 | disposition left against medical advice (07) ==
LOC: ER 19:47
PROVIDERS: Nurse Practitioner Family
DX: G45.9 Transient cerebral ischemic attack, unspecified (principal); E11.9 Type 2 diabetes mellitus without complications; I10 Essential (primary) hypertension; I25.2 Old myocardial infarction; F17.210 Nicotine dependence, cigarettes, uncomplicated; Z79.82 Long term (current) use of aspirin; Z79.899 Other long term (current) drug therapy